=== PATIENT | male | born 1970 | race Hispanic/Latino ===

== ENCOUNTER 2017-06-22 21:20 | Observation (INO) | payer SELFPAY ==
[~2017-06-22] VITALS: Ht 172.7 cm; Wt 76.7 kg
[2017-06-22 21:52] LABS: HEMOGLOBIN 11.6 g/dl (14.0-18.0); IMMATURE GRANULOCYTES 1.3 % (0.0-1.0); MEAN CELL VOLUME 75.4 fL CALC (80.0-100.0); MEAN CORPUSCULAR HGB 23.6 pG CALC (26.0-32.0); MEAN CORPUSCULAR HGB CONC 31.4 g/L CALC (32.0-36.0); NEUT# 7.02 thou/uL (1.82-7.42); RED BLOOD COUNT 4.91 mill/uL (4.70-6.10); RED CELL DISTRI WIDTH 19.7 % (11.5-15.5)
[2017-06-22 22:11] LABS: AMYLASE 97 u/l (30-110); LIPASE 150 u/l (23-300)
[2017-06-22 22:13] LABS: ALBUMIN 4.2 g/dL (3.2-5.0); ALKALINE PHOSPHATASE 145 u/l (38-126); ANION GAP 20 (6-22 (CALC)); BILIRUBIN, TOTAL 0.7 mg/dL (0.0-1.4); BUN 9 mg/dL (9-20); BUN/CREATININE RATIO 17 (12-20 (CALC)); CALCIUM 10.1 mg/dL (8.4-10.2); CARBON DIOXIDE 20 mmol/l (22-30); CHLORIDE 106 mmol/l (95-108); CREATININE 0.5 mg/dL (0.7-1.3); GFR > 60 ML/MIN (>=60 (CALC)); GFR FOR AFR.AMER. > 60 ML/MIN (>=60 (CALC)); GLUCOSE 184 mg/dL (75-110); POTASSIUM 3.8 mmol/l (3.5-5.1); SGOT/AST 21 u/l (17-59); SGPT/ALT 28 u/l (21-72); SODIUM 142 mmol/l (137-146); TOTAL PROTEIN 8.4 g/dL (6.3-8.2)
[2017-06-22] MEDS ORDERED: DILAUDID8 MG PO (22:16)
[2017-06-22] MEDS ORDERED: KEPPRA1000 MG PO (22:17)
[2017-06-22] MEDS ORDERED: SYNTHROID50 MCG PO (22:17)
[2017-06-22] MEDS ORDERED: MORPHINE SUL30 M3 PO (22:19)
[2017-06-22 22:25] LABS: MYOGLOBIN 55 ng/mL (0 - 121)
[2017-06-22 23:56] VITALS: BP 111/77
[2017-06-23 03:00] VITALS: BP 116/80
[2017-06-23 08:37] VITALS: BP 106/69
[2017-06-23 10:33] LABS: URINE BLOOD DIPSTICK NEGATIVE (NEGATIVE); URINE CLARITY CLEAR; URINE COLOR YELLOW; URINE GLUCOSE - DIPSTICK NEGATIVE (NEGATIVE); URINE KETONE NEGATIVE (NEGATIVE); URINE LEUK ESTERASE NEGATIVE (NEGATIVE); URINE NITRITE - DIPSTICK NEGATIVE (Negative); URINE PROTEIN - DIPSTICK 100 mg/dL (NEG-TRACE); URINE SPECIFIC GRAVITY >=1.030
[2017-06-23 10:34] LABS: URINE BILIRUBIN - DIPSTICK SMALL (NEGATIVE)
[2017-06-23 10:42] LABS: BARBITURATES NEGATIVE (NEGATIVE); COCAINE NEGATIVE (NEGATIVE); METHADONE NEGATIVE (NEGATIVE); OXCYCODONE POSITIVE (NEGATIVE); TETRAHYDROCANNABIONOL NEGATIVE (NEGATIVE); TRICYLIC ANTIDEPRESSANTS POSITIVE (NEGATIVE)
[2017-06-23 10:46] LABS: URINE SQUAMOUS EPITHELIAL CELL FEW EPI/hpf (0-FEW); URINE YEAST FEW hpf
[2017-06-23 13:00] VITALS: BP 106/68
[2017-06-23] MEDS ORDERED: MORPHINE SUL30 M5 PO (14:46)
[2017-06-23] MEDS ORDERED: LEVETIRACETAM500 MG PO (14:46)
[2017-06-23] MEDS ORDERED: DILAUDID2 MG PO (14:46)
== END 2017-06-23 15:44 | disposition home or self-care (01) | DRG 313 ==
LOC: ED 21:20 → ED-I 23:00 → ED 23:29 → MS2 23:30
PROVIDERS: Emergency Medicine; ADMIT Internal Medicine; ATTEND Internal Medicine
DX: R07.89 Other chest pain (principal); C81.90 Hodgkin lymphoma, unspecified, unspecified site; G40.409 Other generalized epilepsy and epileptic syndromes, not intractable, without status epilepticus; I10 Essential (primary) hypertension; E11.9 Type 2 diabetes mellitus without complications; G93.9 Disorder of brain, unspecified; G89.29 Other chronic pain; R13.10 Dysphagia, unspecified; E03.9 Hypothyroidism, unspecified; M54.5 Low back pain; X50.3XXA Overexertion from repetitive movements, initial encounter; Z21 Asymptomatic human immunodeficiency virus [HIV] infection status; Z79.891 Long term (current) use of opiate analgesic; Z79.4 Long term (current) use of insulin; Z79.899 Other long term (current) drug therapy; Z91.14 Patient's other noncompliance with medication regimen
CPT/HCPCS: G0378

== ENCOUNTER 2017-06-27 08:29 | Emergency (ER) | payer SELFPAY ==
[~2017-06-27] VITALS: Ht 172.7 cm; Wt 81.0 kg
[~2017-06-27 08:29] MED LIST: DILAUDID2 MG PO; DILAUDID8 MG PO; KEPPRA1000 MG PO; LEVETIRACETAM500 MG PO; MORPHINE SUL30 M3 PO; MORPHINE SUL30 M5 PO; SYNTHROID50 MCG PO
[2017-06-27] MEDS ORDERED: FLEXERIL5 MG PO (09:21)
[2017-06-27] MEDS ORDERED: METFORMIN500 MG PO (09:23)
[2017-06-27] MEDS ORDERED: ZITHROMAX250 MG PO (09:23)
[2017-06-27] MEDS ORDERED: ALPRAZOLAM0.5 MG PO (09:25)
[2017-06-27] MEDS ORDERED: CELEXA20 MG PO ×2 (09:39→09:45)
[2017-06-27 09:43] LABS: HEMATOCRIT 34.9 % (39.0-50.0); HEMOGLOBIN 10.9 g/dl (14.0-18.0); IMMATURE GRANULOCYTES 0.4 % (0.0-1.0); MEAN CELL VOLUME 77.2 fL CALC (80.0-100.0); MEAN CORPUSCULAR HGB 24.1 pG CALC (26.0-32.0); MEAN CORPUSCULAR HGB CONC 31.2 g/L CALC (32.0-36.0); NEUT# 3.16 thou/uL (1.82-7.42); RED BLOOD COUNT 4.52 mill/uL (4.70-6.10); RED CELL DISTRI WIDTH 19.8 % (11.5-15.5)
[2017-06-27] MEDS ORDERED: VENLAFAXINE H37.5 MG PO (09:43)
[2017-06-27] MEDS ORDERED: PREZISTA600 MG PO (09:43)
[2017-06-27] MEDS ORDERED: TAMSULOSIN0.4 MG PO (09:44)
[2017-06-27 09:58] LABS: ALKALINE PHOSPHATASE 127 u/l (38-126); ANION GAP 16 (6-22 (CALC)); BILIRUBIN, TOTAL 0.7 mg/dL (0.0-1.4); BUN 12 mg/dL (9-20); BUN/CREATININE RATIO 21 (12-20 (CALC)); CALCIUM 10.1 mg/dL (8.4-10.2); CARBON DIOXIDE 24 mmol/l (22-30); CHLORIDE 109 mmol/l (95-108); CREATININE 0.6 mg/dL (0.7-1.3); GFR > 60 ML/MIN (>=60 (CALC)); GFR FOR AFR.AMER. > 60 ML/MIN (>=60 (CALC)); GLUCOSE 154 mg/dL (75-110); POTASSIUM 3.9 mmol/l (3.5-5.1); SGOT/AST 24 u/l (17-59); SGPT/ALT 31 u/l (21-72); SODIUM 146 mmol/l (137-146); TOTAL PROTEIN 7.7 g/dL (6.3-8.2)
[2017-06-27 11:20] LABS: URINE BLOOD DIPSTICK NEGATIVE (NEGATIVE); URINE CLARITY CLOUDY; URINE COLOR YELLOW; URINE GLUCOSE - DIPSTICK NEGATIVE (NEGATIVE); URINE KETONE NEGATIVE (NEGATIVE); URINE LEUK ESTERASE TRACE (NEGATIVE); URINE NITRITE - DIPSTICK NEGATIVE (Negative); URINE PROTEIN - DIPSTICK TRACE mg/dL (NEG-TRACE); URINE SPECIFIC GRAVITY 1.015
[2017-06-27 11:23] LABS: BARBITURATES NEGATIVE (NEGATIVE); COCAINE NEGATIVE (NEGATIVE); METHADONE NEGATIVE (NEGATIVE); TETRAHYDROCANNABIONOL NEGATIVE (NEGATIVE); TRICYLIC ANTIDEPRESSANTS NEGATIVE (NEGATIVE)
[2017-06-27 11:24] LABS: OXCYCODONE NEGATIVE (NEGATIVE)
[2017-06-27 11:31] LABS: URINE BILIRUBIN - DIPSTICK SMALL (NEGATIVE)
[2017-06-27 11:32] LABS: URINE AMORPH SEDIMENT MANY hpf (NONE-FER); URINE CALCIUM OXALATE CRYSTALS FEW lpf
[2017-06-27 11:33] LABS: URINE BACTERIA FEW hpf
[2017-06-27] MEDS ORDERED: CIPROFLOXACN500 MG PO (12:34)
[2017-06-27 12:48] VITALS: BP 115/86
[2017-06-27] MEDS ORDERED: AMOXICILLIN500 MG PO ×2 (12:54→12:55)
== END 2017-06-27 13:00 | disposition home or self-care (01) | DRG 101 ==
LOC: ED 08:29
PROVIDERS: Emergency Medicine
DX: G40.409 Other generalized epilepsy and epileptic syndromes, not intractable, without status epilepticus (principal); N39.0 Urinary tract infection, site not specified; C81.90 Hodgkin lymphoma, unspecified, unspecified site; I10 Essential (primary) hypertension; E11.9 Type 2 diabetes mellitus without complications; E03.9 Hypothyroidism, unspecified; I25.10 Atherosclerotic heart disease of native coronary artery without angina pectoris; Z21 Asymptomatic human immunodeficiency virus [HIV] infection status

== ENCOUNTER 2017-07-19 23:44 | Emergency (ER) | payer MEDICARE ==
[~2017-07-19] VITALS: Ht 172.7 cm; Wt 80.0 kg
[~2017-07-19 23:44] MED LIST changes: +ALPRAZOLAM0.5 MG PO; +AMOXICILLIN500 MG PO; +CELEXA20 MG PO; +CIPROFLOXACN500 MG PO; +FLEXERIL5 MG PO; +METFORMIN500 MG PO; +PREZISTA600 MG PO; +TAMSULOSIN0.4 MG PO; +VENLAFAXINE H37.5 MG PO; +ZITHROMAX250 MG PO
[2017-07-20 01:31] LABS: HEMATOCRIT 39.7 % (39.0-50.0); HEMOGLOBIN 12.6 g/dl (14.0-18.0); IMMATURE GRANULOCYTES 0.7 % (0.0-1.0); MEAN CELL VOLUME 78.5 fL CALC (80.0-100.0); MEAN CORPUSCULAR HGB 24.9 pG CALC (26.0-32.0); MEAN CORPUSCULAR HGB CONC 31.7 g/L CALC (32.0-36.0); NEUT# 7.14 thou/uL (1.82-7.42); RED BLOOD COUNT 5.06 mill/uL (4.70-6.10); RED CELL DISTRI WIDTH 20.1 % (11.5-15.5)
[2017-07-20 01:50] LABS: ALBUMIN 4.4 g/dL (3.2-5.0); ALKALINE PHOSPHATASE 139 u/l (38-126); ANION GAP 21 (6-22 (CALC)); BILIRUBIN, TOTAL 0.6 mg/dL (0.0-1.4); BUN 13 mg/dL (9-20); BUN/CREATININE RATIO 19 (12-20 (CALC)); CALCIUM 10.5 mg/dL (8.4-10.2); CARBON DIOXIDE 22 mmol/l (22-30); CHLORIDE 108 mmol/l (95-108); CREATININE 0.7 mg/dL (0.7-1.3); GFR > 60 ML/MIN (>=60 (CALC)); GFR FOR AFR.AMER. > 60 ML/MIN (>=60 (CALC)); GLUCOSE 176 mg/dL (75-110); POTASSIUM 4.3 mmol/l (3.5-5.1); SGOT/AST 23 u/l (17-59); SGPT/ALT 38 u/l (21-72); SODIUM 147 mmol/l (137-146); TOTAL PROTEIN 7.9 g/dL (6.3-8.2)
[2017-07-20 02:23] VITALS: BP 109/71
== END 2017-07-20 02:23 | disposition home or self-care (01) ==
LOC: ED 23:44
PROVIDERS: Emergency Medicine
DX: G89.29 Other chronic pain (principal); C81.90 Hodgkin lymphoma, unspecified, unspecified site; M25.552 Pain in left hip; M54.5 Low back pain; Z21 Asymptomatic human immunodeficiency virus [HIV] infection status; I25.2 Old myocardial infarction; I10 Essential (primary) hypertension

== ENCOUNTER 2017-09-27 04:28 | Inpatient (IN) | payer MEDICARE ==
[2017-09-27] VITALS (47 sets, daily range): BP systolic 101–217; BP diastolic 56–105
[~2017-09-27] VITALS: Ht 172.7 cm; Wt 81.0 kg
--- NOTE | 2017-09-27 04:51 | NUR ---
ASKED PT IF HE HAS ANY ALLERGIES AND HE STATED "NOT THAT I KNOW OF". INFORMED PT IODINE AND ATIVAN LISTED IN COMPUTER AND PT STATED HE HAD CT WITH CONTRAST RECENTLY AND HE WAS FINE, "I DON'T KNOW WHERE THEY GOT THAT INFORMATION.
--- NOTE | 2017-09-27 04:54 | NUR ---
BREATHING TREATMENT GIVEN. BREATHING TECH. FOR GOOD DEPOSITION TO THE LUNGS.
[2017-09-27 05:14] LABS: HEMATOCRIT 40.9 % (39.0-50.0); IMMATURE GRANULOCYTES 1.2 % (0.0-1.0); MEAN CELL VOLUME 81.5 fL CALC (80.0-100.0); MEAN CORPUSCULAR HGB 25.9 pG CALC (26.0-32.0); MEAN CORPUSCULAR HGB CONC 31.8 g/L CALC (32.0-36.0); NEUT# 5.97 thou/uL (1.82-7.42); RED BLOOD COUNT 5.02 mill/uL (4.70-6.10); RED CELL DISTRI WIDTH 18.4 % (11.5-15.5)
[2017-09-27 05:23] LABS: INFLUENZA A NONE DETECTED (NONE DETECT); INFLUENZA B NONE DETECTED (NONE DETECT)
[2017-09-27 05:24] LABS: ANION GAP 25 (6-22 (CALC)); BUN 19 mg/dL (9-20); BUN/CREATININE RATIO 31 (12-20 (CALC)); CALCIUM 11.5 mg/dL (8.4-10.2); CARBON DIOXIDE 20 mmol/l (22-30); CHLORIDE 102 mmol/l (95-108); CREATININE 0.6 mg/dL (0.7-1.3); GFR > 60 ML/MIN (>=60 (CALC)); GFR FOR AFR.AMER. > 60 ML/MIN (>=60 (CALC)); GLUCOSE 169 mg/dL (75-110); POTASSIUM 4.9 mmol/l (3.5-5.1); SODIUM 142 mmol/l (137-146)
[2017-09-27] MEDS ORDERED: NORVIR100 M1 PO (05:38)
[2017-09-27] MEDS ORDERED: COUMADIN5 MG PO (05:39)
[2017-09-27] MEDS ORDERED: LINEZOLID600 MG PO (05:41)
--- NOTE | 2017-09-27 05:45 | NUR ---
2ND EDNA IV R HAND
[2017-09-27 05:51] LABS: INTERNATIONAL NORMALIZED RATIO 1.1 RATIO (0.7-1.3); PROTHROMBIN TIME 12.1 SECONDS (9.0-12.5)
--- NOTE | 2017-09-27 06:35 | NUR ---
DR Murguia INSTERS [facility] IV.PCXR COMPLETED DR Murguia GIVES ME VERBAL PERMISSION TO USE [facility] IV FOR FLUIDS AND IV MEDS.
--- NOTE | 2017-09-27 06:50 | NUR ---
PHONE REPORT TO NURSE REYNA ON MS2
--- NOTE | 2017-09-27 08:29 | NUR ---
PT RECEIVED TO FLOOR @ 0720 VIA STRETCHER ACCOMPANIED BY JANES STEPHEN AND JANES MARES. PT TACHYPNEIC, RESPS IN 40'S. NOT RESPONDING TO QUESTIONS. PT THEN CLUCTHCED CHEST, STATES "I... CANT... BREATHE." AND BEGAN SEIZURE LIKE ACTIVITY. AUTOMOBILE MECHANIC MOTOR CALLED @0727. ER STAFF X 2 AND HEATH ARENAS RN ALREADY AT BEDSIDE. PT "AWOKE" SECONDS AFTER SEIZING STOPPED AND BEGAN SPEAKING. ANSWERING QUESTIONS. VERY POOR HISTORIAN. ANSWERS TO QUESTIONS REGARDING RECENT MEDICAL TREATMENT DIFFERING FROM MINUTE TO MINUTE. O2 @ 2L VIA NC, SATURATION 96%. BLOOD SUGAR 208. CENTRAL LINE TO RI INFUSING VANCOMYCIN AND 2L NS BOLUS FROM ED ORDER. DR. PELLETIER AND LILLIAN GHOSH AT BEDSIDE @ 0805. SIERRA CATHETER 16FR INSERTED BY STERILE TECHNIQUE PER DR. PELLETIER ORDER. 600 ML CLEAR YELLOW URINE OURPUT UPON INSERTION.ORDER TO TRANSFER TO ICU FOR POSSIBLE INTUBATION. PT STILL TACHYPNEIC. STILL REPORTS CHEST PAIN. PT TRANSFERED @ 0829 BY BED TO ICU BED 5. REPORT GIVEN TO JANES BARAJAS.
--- NOTE | 2017-09-27 08:32 | NUR ---
0832 - PT TRANSFERRED FROM FROM MED SURG VIA BED, PT TACHYPNIC WITH LUNGS CLEAR/DIMINSHED, SHORTNES OF BREATH NOTED AND O2 ON AT 2L WITH SATS AT 98%, SOME FINE TREMORS NOTED TO ABD AND TORSO, SKIN INTACT WITH DRY SCALINESS NOTED TO BILATERAL FEET, PPPB STRONG AND BOUNDING, NO EDEMA NOTED ABD ROUNDED AND SOFT NON TENDER TO PALPATION (NO FLINCHING OR GRIMACING NOTED) WITH ACTIVE BOWEL SOUNDS HEARD, UNABLE TO DETERMINE LAST BM RELATED TO PT CONDITION, PT WITH EYES CLOSED DOES NOT TALK AT THIS TIME, PER REPORT GAVE CONFLICTING HISTORY REGARDING RECENT ILLNESSES ETC...MONITORING EQUIPMENT APPLIED TELE READING ST RATE IN THE 100'S, BP ELEVATED SEE INTERVENTION FOR DETAILS, PER WHO IS NOW AT BEDSIDE (PLAN TO INTUBATE AWAITING ANESTHESIA) SCARS NOTED TO BILATERAL ANTECUBITAL AREAS. PT HAS 20G IN R AC, 22G IN LEFT HAND AND R IJ TLC NOTED. 16F SIERRA WITH SECUREITY DEVICE NOTED TO RIGHT THIGH, DRAINING CLEAR SAMMY URINE WITH SEDIMENT NOTED 0846 - BOLUS OF PROPOFOL DONE BY MARILYN MERRILL 0846 - PROPOFOL DRIP STARTED AT 20 MCG 0847 - MEDICATED WITH SUCCINYLCHOLINE BY MARILYN MERRILL 0849 - INTUBATED WITH 8F TAPED AT 24 CM AT LIP LINE 0850 - MEDICATED WITH CISATRACURIUM BY GARFIELD SANDERS 0851 - PROPOFOL GTT INCREASED AT 30MCG, BP REMAINS ELEVATED, PT DIAPHORETIC 0855 - ORAL CARE PROVIDED INCLUDING ORAL SUCTIONING 0859 - REPOSITIONED FOR COMFORT, BILATERAL SOFT WRIST RESTRAINTS APPLIED TO PREVENT SELF EXTUBATION.
--- NOTE | 2017-09-27 09:15 | NUR ---
16F NG PLACED IN R NARE, WITHOUT INCIDENT, PLACEMENT VERIFIED BY 2 RN'S, PT TOLERATED W/O INCIDENT.
[2017-09-27 09:27] LABS: MAGNESIUM 1.8 mg/dL (1.6-2.3)
--- NOTE | 2017-09-27 09:30 | NUR ---
Spoke with Francis at [facility], pt information given. States will give pass information to [facility] and have hospitalist call Dr Ballard with any questions. Facesheet, H & P, ER documentation, and Transfer Order faxed.
--- NOTE | 2017-09-27 10:00 | NUR ---
PT REMAINS PROFUSELY DIAPHORETIC, MILDLY RESPONSIVE AT THIS TIME PROPOFOL GTT TITRATED ACCORDINGLY, REPEATED ORAL SUCTIONING PROVIDED FOR COPIUS ORAL SECRETIONS, BP REMAIN ELEVATED AWARE NEW ORDERS REC'D. AT BEDSIDE AND HISTORY OBTAINED FORM HER, PT HAS BEEN ON SENIOR LIVING (ATLEAST 13 YRS) PAIN MGMT TAKING 8MG OF DILAUDID PO Q4H AND MS CONTIN PO Q12H AT HOME, RECENT HISTORY OF HOMELESS RESULTING IN SHORT HOSPITAL STAY THEN 2 MONTHS IN REHAB, THEN INTO [facility] ON 09/02/17 RELEASED 09/25/17 PER . PT ALSO HAS HISTORY OF HIV, NON H[place] LYMPHOMA
[2017-09-27 10:24] LABS: HEMOGLOBIN 10.8 g/dl (14.0-18.0); MEAN CELL VOLUME 82.1 fL CALC (80.0-100.0); MEAN CORPUSCULAR HGB 26.1 pG CALC (26.0-32.0); MEAN CORPUSCULAR HGB CONC 31.8 g/L CALC (32.0-36.0); RED BLOOD COUNT 4.14 mill/uL (4.70-6.10); RED CELL DISTRI WIDTH 17.9 % (11.5-15.5)
--- NOTE | 2017-09-27 10:34 | NUR ---
MEDICATED WITH DILAUDID FOR S/S OF PAIN CONTINUE WITH FREQUENT ORAL SUCITONING AND SKIN DRYING RELATED TO DIAPHORESIS. SOME TREMORS NOTED OCCASIONALLY PT REMAINS MILDLY RESPONSIVE, CONTINUE TO TITRATE PROPOFOL
[2017-09-27 10:39] LABS: ALBUMIN 3.6 g/dL (3.2-5.0); ALKALINE PHOSPHATASE 145 u/l (38-126); ANION GAP 18 (6-22 (CALC)); BILIRUBIN, TOTAL 0.8 mg/dL (0.0-1.4); BUN 16 mg/dL (9-20); BUN/CREATININE RATIO 35 (12-20 (CALC)); CARBON DIOXIDE 17 mmol/l (22-30); CHLORIDE 109 mmol/l (95-108); CREATININE 0.5 mg/dL (0.7-1.3); GFR > 60 ML/MIN (>=60 (CALC)); GFR FOR AFR.AMER. > 60 ML/MIN (>=60 (CALC)); GLUCOSE 324 mg/dL (75-110); POTASSIUM 4.2 mmol/l (3.5-5.1); SGOT/AST 23 u/l (17-59); SGPT/ALT 35 u/l (21-72); SODIUM 141 mmol/l (137-146); TOTAL PROTEIN 6.4 g/dL (6.3-8.2)
[2017-09-27 10:50] LABS: CALCIUM 8.5 mg/dL (8.4-10.2)
--- NOTE | 2017-09-27 11:30 | NUR ---
PT RESTING APPEARS MORE COMFORTABLE SHORTLY AFTER PAIN MEDICATION ADMINISTERED DIAPHORESIS AND BP IMPROVED GREATLY, OCCASIONAL TREMORS NOTED, PT CURRENTLY ON MAX TITRATION PER PROTOCOL WITH DIPROVAN AND REMAINS MILDLY RESPONSIVE, AWARE
--- NOTE | 2017-09-27 12:39 | NUR ---
BACK AT BEDSIDE, PT APPEARS MORE COMFORTABLE BP REMAINS STABLE LESS TREMORS NOTED, PT EDUCATED REGARDING PLAN OF CARE INCLUDING TRANSFER BACK TO [facility] WHEN BED AVAILABLE, VERBALIZES UNDERSTANDING.
--- NOTE | 2017-09-27 14:04 | NUR ---
COMPLETE BED BATH COMPLETED WITH FULL LINEN CHANGE, PT TOLERATED, REMAINS MILDLY REPSONSIVE TO STIMULATION. COMFORT MEASURES PROVIDED ANMD MEDICATED FOR PAIN PRIOR TO BATH, PLANNED CT THIS AFTERNOON.
--- NOTE | 2017-09-27 14:50 | NUR ---
1420 - PT ONTO STRECTHER WITH 4 MAX ASSIST, TO CT VIA STRECTHER WITH R.T. CT COMPLETED AND BACK TO ROOM PT TOLERATED WELL. 1450 - BACK IN ICU, BACK TO BED WITH SAME ASSIST, ALL MONITORING EQUIPMENT REAPPLIED, PT REMAINS MILDLY AROUSEABLE BUT RESTING COMFORTABLY. EASILY VISIBLE FROM NURSES STATION FOR SAFETY
--- NOTE | 2017-09-27 15:09 | NUR ---
PT RESTING NO CHANGES NOTED.APPEARS COMFORTBALE NG REMAINS AT LIS WITH SMALL AMOUNT GREENICH YELLOWISH DRAINAGE, SIERRA WITH ADEQUATE OUPUT, DRESSING TO RIJ TLC CHANGED USING STERILE TECHNIQUE, PT TOLERATED WELL.
--- NOTE | 2017-09-27 16:08 | NUR ---
PT RESTING IN BED, SADAF CONTINUES WQITH IVF INFUSING AT PRESCRIBED RATE, PT APPEARS COMFORTABLE, NO S/S OF PAIN OR DISTRESS AT THIS TIME, WILL CONTINUE TO MONITOR.
--- NOTE | 2017-09-27 17:35 | NUR ---
set up assist provided for pm meal, few visitors remain at bedside
--- NOTE | 2017-09-27 18:02 | NUR ---
PT RESTING NO S/S OF DISTRESS OR DISCOMFORT, IVF CONTINUE DIPROVAN PER PROTOCOL SIERRA INTACT DRAINING CLEAR YELLOW URINE
--- NOTE | 2017-09-27 18:29 | NUR ---
PATIENT RECEIVED AT 1800 WITH HEAD OF BED AT ABOUT 30 DEGRE ANGLE. INTUBATED WITH SIZE # 8 ET TUBE AT 23 CM OF THE LIPS. RESTING COMFORTABLY. SPO2 97% ON 30% AC WITH 5 OF PEEP. WILL CONTINUE TO MONITOR THROUGTOUT THE SHIFT.
--- NOTE | 2017-09-27 18:50 | NUR ---
REPORT FROM JANES BARAJAS. ASSUMED PT. CARE.
--- NOTE | 2017-09-27 19:19 | NUR ---
CALL PLACED TO [facility] TRANSFER CENTER TO IN REGARDS TO TRANFER TO [facility] AND THEY STILL HAVE NO ICU BED AT THIS TIME.
--- NOTE | 2017-09-27 19:35 | NUR ---
PT. FOUND RESTING IN BED WITH EYES CLOSED ON THE VENT. PT. AROUSABLE TO LIGHT VERBAL STIMULI. PROPOFOL DRIP INFUSING AT 75 MCG AT THIS TIME-MAX DOSE. WHEN ASKED IF PATIENT HAS PAIN HE IS ABLE TO SHAKE HIS HEAD YES. REPOSITIONED FOR COMFORT. HR AND BP STABLE. LUNGS CLEAR TO UPPER AND SCANT RHONCHI TO LOWER LUNG ROY. PT. REMAINS IN SOFT WRIST RESTRAINTS HE DOES ATTEMPT TO OCCASIONALLY REACH UP FOR THE ET TUBE. NG TUBE NOTED TO RT. NARES WITH COMMERICAL TUBE HOLDING DEVICE NOTED, SECURED. GREEN FLUID DRAINING FROM NG TUBE TO LIT. ORAL CARE AND DEEP SUCTIONING ALONG WITH ORAL SUCTIONING PERFORMED AT THIS TIME. PT. TOLERATED WELL AFTER BEING MEDICATED FOR PAIN. IV FLUIDS AND PROPOFOL DRIP INFUSE TO RT. IJ CENTRAL LINE. CALL LIGHT REMAINS WITHIN REACH AT THIS TIME. WILL CONTINUE TO ASSESS.
--- NOTE | 2017-09-27 20:54 | NUR ---
PT. CONTINUES TO REST COMFORTABLY WITH EYES CLOSED. VS REMAIN STABLE. PT. REMAINS STABLE ON THE VENT AND PROPOFOL DRIP. HR AND BP STABLE. REMAINS ROUSABLE TO LIGHT VERBAL STIMULI. WILL CONTINUE TO MONITOR FOR PAIN AND MEDICATE NEEDED. CALL LIGHT REMAINS WITHIN REACH AND SOFT WRIST RESTRAINTS INTACT AT THIS TIME. WILL CONTINUE TO ASSESS.
--- NOTE | 2017-09-27 21:27 | NUR ---
PT. CONTINUES TO REACH UP AT LINES AND TUBES. SOFT BILAT WRIST RESTRAINTS CONTINUE. WILL CONTINUE TO ASSESS FOR NEED. CALL LIGHT REMAINS WITHIN REACH.
--- NOTE | 2017-09-27 21:45 | NUR ---
PROPOFOL TUBING CHANGED AT THIS TIME.
--- NOTE | 2017-09-27 22:49 | NUR ---
CONTINUES TO REST WITH EYES CLOSED. REMAINS WITH SOFT WRIST RESTRAINTS IN PLACE. SEE DOCUMENTATION. REMAINS STABLE ON THE VENT. VSS. PROPOFOL DRIP CONTINUES TO INFUSE. WILL MEDICATE ORDERED.
[2017-09-28] VITALS (24 sets, daily range): BP systolic 97–162; BP diastolic 57–84
--- NOTE | 2017-09-28 00:23 | NUR ---
ZOSYN INFUSED AT THIS TIME. NO REACTIONS NOTED. RT. IJ REMAINS PATENT WITH FLUIDS AND DIPROVAN DRIP INFUSING. CALL LIGHT REMAINS WITHIN REACH. PT. APPEARS COMFORTABLE AT THIS TIME. REPOSITIONED FOR COMFORT. WILL CONTINUE TO PROVIDE ORAL CARE Q2 AND NEEDED.
--- NOTE | 2017-09-28 02:23 | NUR ---
PROPOFOL DRIP CHANGED AT THIS TIME. PT. CONTINUES TO BE AROUSABLE TO LIGHT VERBAL STIMULI. ANSWERS QUESTIONS WITH SHAKING HEAD YES AND NO. IV FLUIDS CONTINUE TO INFUSE WIHT PROPOFOL TO RT. IJ CENTRAL LINE. SKIN REMAINS WARM AND DRY. AFEBRILE. PT. REMAINS WITH HEAD AT 30 DEGREES.
--- NOTE | 2017-09-28 04:15 | NUR ---
PT. REPOSITIONED FOR COMFORT. ORAL CARE AND SUCTIONING PROVIDED. DEEP SUCTIONING PERFORMED. PT. MEDICATED FOR PAIN CONTROL. PROPOFOL DRIP CONTINUES TO INFUSE AT 75 MCG. VS REMAIN STABLE. PT. REMAINS AROUSABLE TO LIGHT VERBAL STIMULI.
[2017-09-28 05:17] LABS: HEMATOCRIT 26.5 % (39.0-50.0); HEMOGLOBIN 8.5 g/dl (14.0-18.0); IMMATURE GRANULOCYTES 2.3 % (0.0-1.0); MEAN CELL VOLUME 81.3 fL CALC (80.0-100.0); MEAN CORPUSCULAR HGB 26.1 pG CALC (26.0-32.0); MEAN CORPUSCULAR HGB CONC 32.1 g/L CALC (32.0-36.0); NEUT# 4.65 thou/uL (1.82-7.42); RED BLOOD COUNT 3.26 mill/uL (4.70-6.10); RED CELL DISTRI WIDTH 17.6 % (11.5-15.5)
[2017-09-28 05:27] LABS: ANION GAP 14 (6-22 (CALC)); BUN 14 mg/dL (9-20); BUN/CREATININE RATIO 27 (12-20 (CALC)); CALCIUM 9.1 mg/dL (8.4-10.2); CARBON DIOXIDE 21 mmol/l (22-30); CHLORIDE 109 mmol/l (95-108); CREATININE 0.5 mg/dL (0.7-1.3); GFR > 60 ML/MIN (>=60 (CALC)); GFR FOR AFR.AMER. > 60 ML/MIN (>=60 (CALC)); GLUCOSE 228 mg/dL (75-110); MAGNESIUM 1.6 mg/dL (1.6-2.3); POTASSIUM 4.1 mmol/l (3.5-5.1); SODIUM 139 mmol/l (137-146)
--- NOTE | 2017-09-28 06:09 | NUR ---
ORAL CARE PROVIDED. ZOSYN INFUSED AT THIS TIME. NO REACTIONS NOTED. PT. WINCES WITH ORAL CARE AND HR ELEVATES. APPEARS TO BE IN MODERATE DISCOMFORT. VSS. ROM AND RELEASE PROVIDED AND SOFT WRIST RESTRAINTS REPLACED. CALL LIGHT REMAINS WITHIN REACH. WILL CONTINUE TO CLOSELY MONITOR.
[2017-09-28 06:35] LABS: HEMATOCRIT 26.5 % (39.0-50.0); HEMOGLOBIN 8.5 g/dl (14.0-18.0)
--- NOTE | 2017-09-28 07:20 | NUR ---
PT RESTING IN BED INTUBATED WITH 8F TAPED AT 23CM AT LIP LINE, SEE FLOW SHEEET FOR VENT SETTINGS, IVF INFUSING ALONG WITH DIPROVAN PER PROTOCOL INTO R IJ TLC, PT REMAINS DROWSY BUT AROUSES AND NODS YES AND NO APPROPRIATELY TO QUESTIONS ASKED, WRIST RESTRAINTS IN PLACE TO PREVENT SELF EXTUBATION, NG INTACT IN R NARE DRAINING RUST DRAINAGE, SKIN WARM DRY AND INTACT, MEDICATED FOR PAIN ORDERED, COMFORT MEASURES PROVIDED, ACCU CHECK COMPLETED AND COVERAGE PROVIDED ORDERED, CALL HILL WITHIN REACH, EASILY VISIBLE FROM NURSES STATION FOR SAFETY, WILL MONITOR CLOSELY
--- NOTE | 2017-09-28 08:12 | NUR ---
PT RESTING, APPEARS COMFORTABLE, CALL HILL WITHIN REACH, IVF CONTINUE, WILL CONTINUE TO MONITOR.
--- NOTE | 2017-09-28 08:25 | NUR ---
IN TO SEE PATIENT, PLAN OF CARE DISCUSSED INCLUDING ATTMEPTS TO WEAN VENT TODAY.
--- NOTE | 2017-09-28 09:08 | NUR ---
SADAF ZAVALA FOR PLANNED ATTEMPTED EXTUBATION, PT AWAKE WRITTEN REQUEST TO CALL , JAYDON CALLED AND WILL BE IN SHORTLY, PT AWARE, TEARY EYED, EMOTIONAL SUPPORT GIVEN, WILL CONTINUE TO MONITOR.
--- NOTE | 2017-09-28 09:15 | NUR ---
AT BEDSIDE, EDUCATION PROVIDED TO PT AND APOUSE REGARDING PLAN OF CARE, CALL HILL WITHIN REACH.
--- NOTE | 2017-09-28 09:21 | NUR ---
RT AT BEDSIDE, VENT SETTING CHANGES COMPLETED, WILLMONITOR TOLERANCE SEE FLOW SHEET FOR CHANGES
--- NOTE | 2017-09-28 09:37 | NUR ---
PT RESTING EMOTIONAL REGARDING PLAN OF CARE AND CURRENT/RECENT ILLNESSES, EMOTIONAL SUPPORT PROVIDED.
--- NOTE | 2017-09-28 09:45 | NUR ---
ORAL SUCTIONING PROVIDED, PT TOLERATING VENT CHANGES WELL, MAINTAINED SATS 97-100%
--- NOTE | 2017-09-28 10:00 | NUR ---
PT EXTUABTED BY RT, NG REMOVED AT SAME TIME, PT TOLERATED W/O INCIDENT, O2 PLACED AT 3L VIA NC, TOLERATING WELL, COMPLAINS OF HEADACHE AND SORE THROAT WILLMEDICATE ORDERED, ALSO VERBALIZES SOME NAUSEA, WILL NOTIFY
--- NOTE | 2017-09-28 10:31 | NUR ---
CONTINUES TO TOLERATE NC, MEDICATED FOR COMPLAINTS IF NAUSEA AND PAIN, TOLERATES WELL, MAINTAINING O2 SATS AT 100% ON NC, AT BEDSIDE, WILL CONTINUE TO MONITOR
--- NOTE | 2017-09-28 11:20 | NUR ---
PT TOOK PO MORPHINE (HIS USUAL HOME DOSE) W/O INCIDENT, CONTINUES TO TOLERATE BEING EXTUBATED, SATS MAINTAINED AT 95-100% ON 3L NC, WILL CONTINUE TO MONITOR
--- NOTE | 2017-09-28 12:26 | NUR ---
PT RESTING, OFFERS NO NEW COMPLAINTS, CONTINUES TO TOLERATE THE NC WELL, TAKIN PO FLUIDS WITHOUT INCIDENT, WILL START FULL LQUID DIET AND MONITOR TOLERANCE, CALL HILL WITHIN REACH
--- NOTE | 2017-09-28 13:08 | NUR ---
PT STARTED ON FULL LIQUID DIET, WILL MONITOR TOLERANCE.
--- NOTE | 2017-09-28 13:13 | NUR ---
SOME COUGH NOTED, HISTORY DEPARTMENT CHAIR AT THIS TIME, COMFORT MEASURES PROVIDED, WILL CONTINUE TO MONITOR.
--- NOTE | 2017-09-28 14:18 | NUR ---
PT RESTING, DOZING INTERMITTNELY, OCCASIONAL TIGHT HARSH COUGH NOTED MD AWARE WITH NEW ORDERS REC'D
--- NOTE | 2017-09-28 16:21 | NUR ---
Pt resting no s/s of ditress some intermittent anxiety noted wioth emotional support provided, call valdez within reach.
--- NOTE | 2017-09-28 17:36 | NUR ---
MEDICATED FOR COMPLAINTS OF PAIN, REMAINS AT BEDSIDE, ACCU CHECK COMPLETED AND COVERAGE PROVIDED ORDERED, CALL HILL WITHIN REACH
--- NOTE | 2017-09-28 19:00 | NUR ---
PT SITTING UP IN BED WATCHING TV. SPOUSE IN ROOM WITH PT. PT IS ALERT AND ORIENTED X3. PERRLA. RESP ARE EVEN AND LABORED. PT TACHYPNEIC. INSTRUCTED PT TO TAKE SLOW DEEP BREATHS. RHONCI NOTED IN BILAT BASES OF LUNGS. PT ON O2 2L NC. HR REGULAR. PULSES PALPABLE THROUGHOUT. NO EDEMA NOTED. BS ACTIVE. SIERRA DRAINING CLEAR YELLOW URINE. TLC TO RIGHT SUBCLAVIAN. IVF KVO. DRESSING C/D/I. WILL CONTINUE TO MONITOR
--- NOTE | 2017-09-28 19:45 | NUR ---
MEDICATED PT WITH XANAX 0.5MG PO. FOR ANXIETY. PT DIAPHORETIC AND TACHYPNEIC. WILL CONTINUE TO MONITOR
--- NOTE | 2017-09-28 21:00 | NUR ---
PT ABLE TO EAT SOME APPLE SAUCE AT THIS TIME
--- NOTE | 2017-09-28 21:54 | NUR ---
PT RESTING IN BED WITH EYES CLOSED. SPOUSE AT BEDSIDE. PT AROUSES TO VERBAL STIMULI. DIAPHORESIS HAS SUBSIDED. PT VOICES NO COMPLAINTS AT THIS TIME. RESP ARE NO EVEN AND UNLABORED. WILL CONTINUE TO MONITOR
[2017-09-29] VITALS (18 sets, daily range): BP systolic 115–163; BP diastolic 52–89
--- NOTE | 2017-09-29 00:12 | NUR ---
PT RESTING IN BED WATCHING TV. RESP ARE EVEN AND UNLABORED. MEDICATED WITH DILAUDID 8MG. NO DISTRESS NOTED. PT VOICES NO COMPLAINTS AT THIS TIME. WILL CONTINUE TO MONITOR
--- NOTE | 2017-09-29 02:11 | NUR ---
PT RESTING IN BED WITH EYES OPEN. PT STATES THAT HE IS HAVING A DIFFICULT TIME FALLING ASLEEP. PT REQUESTS THAT MEDICINE IS GIVEN AT THE SAME TIME SO THAT HE CAN SLEEP. INFORMED PT THAT HIS NEXT DILAUDID CAN BE GIVEN AT 0400 AND NEXT MORPHINE AT 0900. PT REQUESTS TO TAKE XANAX AT 0400. WILL CONTINUE TO MONITOR
--- NOTE | 2017-09-29 04:09 | NUR ---
PT SITTING UP IN BED WITH EYES OPEN. PT STATES THAT HE IS STILL UNABLE TO SLEEP. PT COMPLAINS THAT HE IS HAVING TROUBLE BRETHING. HEAD OF BED RAISED. PT INSTRUCTRED TO TAKE SLOW DEEP BREATHS THROUGHT THE NOSE AND OUT THROUGHT THE MOUTH. PT REPORTED THAT HE WAS FEELING BETTER AFTER THAT. NOTIFIED RT FOR A NEB TREATMENT. NEB TRATMENT ADMINISTERED. RESP ARE EVEN AND LABORED. PT MEDICATED WITH DILAUDID 8MG PO AND XANAX 0.5MG PO. WILL CONTINUE TO MONITOR
--- NOTE | 2017-09-29 05:00 | NUR ---
LAB DRAWN FROM TLC AND GIVEN TO BULLDOZER MECHANIC.
--- NOTE | 2017-09-29 05:19 | NUR ---
TURKEY SANDWICH PROVIDED AT PATIENT REQUEST.
[2017-09-29 05:54] LABS: HEMATOCRIT 29.9 % (39.0-50.0); HEMOGLOBIN 9.6 g/dl (14.0-18.0); MEAN CELL VOLUME 80.6 fL CALC (80.0-100.0); MEAN CORPUSCULAR HGB 25.9 pG CALC (26.0-32.0); MEAN CORPUSCULAR HGB CONC 32.1 g/L CALC (32.0-36.0); RED BLOOD COUNT 3.71 mill/uL (4.70-6.10)
[2017-09-29 05:57] LABS: ANION GAP 19 (6-22 (CALC)); BUN 18 mg/dL (9-20); BUN/CREATININE RATIO 30 (12-20 (CALC)); CALCIUM 9.9 mg/dL (8.4-10.2); CARBON DIOXIDE 21 mmol/l (22-30); CHLORIDE 104 mmol/l (95-108); CREATININE 0.6 mg/dL (0.7-1.3); GFR > 60 ML/MIN (>=60 (CALC)); GFR FOR AFR.AMER. > 60 ML/MIN (>=60 (CALC)); GLUCOSE 364 mg/dL (75-110); POTASSIUM 4.1 mmol/l (3.5-5.1); SODIUM 139 mmol/l (137-146)
--- NOTE | 2017-09-29 06:00 | NUR ---
PT RESTING IN BED WITH EYES CLOSED. RESP ARE EVEN AND UNLABORED. NO DISTRESS NOTED. WILL CONTINUE TO MONITOR
[2017-09-29 06:02] LABS: INTERNATIONAL NORMALIZED RATIO 1.1 RATIO (0.7-1.3); PROTHROMBIN TIME 12.5 SECONDS (9.0-12.5)
--- NOTE | 2017-09-29 07:20 | NUR ---
PT RESTING IN BED, REQUIRES REINFORCEMENT REGARDING CONDITION, ASKS MUTIPLE TIMES "I'M DOING BETTER RIGHT" EDUCATED REGARDING DISEASES PROCESS AND PLAN OF CARE INCLUDING, IVF ABT, BREATHING TREATMENTS, PAIN CONTROL ETC... PT VERBALIZES UNDERSTANDING, AM ASSESSMENT COMPLETED SEE INTERVENTION, SKIN WARM AND DRY RIJ TLC INTACT WITH DRESSING CD&I, VS STABLE; PT AFEBRILE, WITH WHEEZES HEARD IN ALL ROY, O2 REMAINS ON AT 3L VIA NC WITH EXERTIONAL SOB NOTED, PT HAS ADMITTED ANXIETY ISSUES, EMOTIONAL SUPPORT PROVIDED, COMFORT MEASURES PROVIDED, SAFETY MEASURES REINFORCED. TELE CONTINUES READING SR RATE IN THE 80-90'S, PT ON STALLION MANAGER PAIN MGMT REGIMEN WHICH IS BEING CONTINUED THIS HOSPITAL STAY, CALL HILL WITHIN REACH, WILL CONTINUE TO MONITOR
--- NOTE | 2017-09-29 08:00 | NUR ---
SET UP ASSIST PROVIDED FOR AM MEAL, CALL HILL WITHIN REACH
--- NOTE | 2017-09-29 08:20 | NUR ---
PT TOOK AM MEDICATIONS W/O INCIDENT, COMFORT MEASURES PROVIDED, CALL HILL WITHIN REACH
--- NOTE | 2017-09-29 10:00 | NUR ---
PT RESTING IN BED, SIERRA CATHETER CONTINUES DRAINING ADEQUATE AMOUNTS CLEAR YELLOW URINE, O2 REMAINS IN USE VIA NC AT 3L, CALL HILL WITHIN REACH
--- NOTE | 2017-09-29 11:05 | NUR ---
PT OOB TO RECLINRE, WITH MIN ASSIST, TOLERATED ACTIVITY WELL, UP TO RECLINER AT BEDSIDE, CONTINUES TO TOLERATE NC AT 3L, OCCASIONAL EXERTIONAL SOB, WILL CONTINUE TO MONITOR.
--- NOTE | 2017-09-29 12:30 | NUR ---
PT REMAINS SITTING UP IN RECLINER AT BEDSIDE, VS REMAIN STABLE, CONTINUES TO TOLERATE NC, CALL HILL WITHIN REACH, MEDICATED FOR PAIN ORDERED, WILL CONTINUE TO MONITOR
--- NOTE | 2017-09-29 13:56 | NUR ---
PT REMAINS SITTING UP IN RECLINER, COMFORT MEASURES PROVIDED, VS REMAIN STABLE, WILL CONTINUE TO MONITOR,
--- NOTE | 2017-09-29 14:11 | NUR ---
VISITORS AT BEDSIDE, OFFERS NO NEW COMPLAINTS, CALL HILL WITHIN REACH.
--- NOTE | 2017-09-29 15:19 | NUR ---
PT RESTING IN RECLINER AT BEDSIDE, CALL HILL WITHIN REACH, NO S/S OF DISTRESS NOTED, CALL HILL WITHIN REACH
--- NOTE | 2017-09-29 16:12 | NUR ---
BACK TO BED WITH MIN ASSIST, TOLERATED ACTIVITY WELL, MEDICATED FOR COMPLAINTS OF PAIN, CALL HILL WITHIN REACH
--- NOTE | 2017-09-29 17:13 | NUR ---
ACCU CHECK COMPLETED WILL PROVIDE COVERAGE ORDERED, CALL HILL WITHIN REACH
--- NOTE | 2017-09-29 17:40 | NUR ---
PT RESTING IN BED, SET UP ASSIST FOR DINNER PROVIDED, CALL LIZ WALKER
--- NOTE | 2017-09-29 19:00 | NUR ---
PT SITTING UP IN BED. PT STATES THAT HE IS FEELING MUCH BETTER. PT IS ALERT AND ORIENTED X3. PERRLA. RHONICI NOTED IN BASE OF BILAT LUNGS. WHEEZING NOTED IN UPPER LOBES OF LUNGS. RESP ARE EVEN AND UNLABORED. NO DISTRESS NOTED. HR REGULAR. PULSES PALPABLE THROUGHOUT. NO EDEMA NOTED. BS ACTIVE. SIERRA DRAINING CLEAR YELLOW URINE. TLC TO RIGHT SUBCLAVIAN. IVF AT KVO. NO REDNESS OR EDEMA NOTED. PT CONTINUES TO HAVE SOME ANXIETY AFTER FAMILY LEAVES. WILL MONITOR AND PROVIDE REASSURANCE NEEDED. WILL MEDICATE NEEDED. WILL CONTINUE TO MONITOR
--- NOTE | 2017-09-29 20:16 | NUR ---
MEDICATED PT WITH DILAUDID 8MG PO AND XANAX 0.5MG PO.
--- NOTE | 2017-09-29 21:10 | NUR ---
MARIELA LEE. PT TOLERATED WELL. URINAL AT [facility].
--- NOTE | 2017-09-29 22:00 | NUR ---
PT RESTING IN BED WITH EYES CLOSED. PT AROUSES TO VERBAL STIMULI. RESP ARE EVEN AND UNLABORED. NO DISTRESS NOTED. WILL CONTINUE TO MONITOR
[2017-09-30] VITALS (9 sets, daily range): BP systolic 111–171; BP diastolic 79–91
--- NOTE | 2017-09-30 | NUR ---
PT MEDICATED WITH DILAUDID 8MG PO. PT RESTING IN BED. PT VOIDED. 500CC OF CLEAR YELLOW URINE. PT VOICES NO COMPLAINTS AT THIS TIME. WILL CONTINUE TO MONITOR
--- NOTE | 2017-09-30 02:14 | NUR ---
PT RESTING IN BED WITH EYES CLOSED. RESP ARE EVEN AND UNLABORED. NO DISTRESS NOTED. PT VOICES NO COMPLAINTS AT THIS TIME. WILL CONTINUE TO MONITOR
--- NOTE | 2017-09-30 04:00 | NUR ---
PT AWAKE IN BED. MEDICATED WITH DILAUDID 8MG PO. PT HAVING EVEN AND LABORED RESPIRATIONS. INSTRUCTED PT TO BREATH NICE SLOW DEEP BREATHS AND TO SLOW BREATHING DOWN. WILL CONTINUE TO MONITOR
--- NOTE | 2017-09-30 04:00 | NUR ---
AM LABS DRAWN FROM TLC
--- NOTE | 2017-09-30 04:25 | NUR ---
RESPIRATORY THERAPY INTO GIVEN NEB TREATMENT. PT WAS COUGHING AND STATES HE WAS HAVING SOME SHORTNESS OF BREATH
[2017-09-30 04:48] LABS: HEMATOCRIT 30.3 % (39.0-50.0); HEMOGLOBIN 9.8 g/dl (14.0-18.0); MEAN CELL VOLUME 79.7 fL CALC (80.0-100.0); MEAN CORPUSCULAR HGB 25.8 pG CALC (26.0-32.0); MEAN CORPUSCULAR HGB CONC 32.3 g/L CALC (32.0-36.0); RED BLOOD COUNT 3.8 mill/uL (4.70-6.10); RED CELL DISTRI WIDTH 18.2 % (11.5-15.5)
[2017-09-30 05:00] LABS: ANION GAP 17 (6-22 (CALC)); BUN 21 mg/dL (9-20); BUN/CREATININE RATIO 40 (12-20 (CALC)); CALCIUM 9.9 mg/dL (8.4-10.2); CARBON DIOXIDE 24 mmol/l (22-30); CHLORIDE 102 mmol/l (95-108); CREATININE 0.5 mg/dL (0.7-1.3); GFR > 60 ML/MIN (>=60 (CALC)); GFR FOR AFR.AMER. > 60 ML/MIN (>=60 (CALC)); GLUCOSE 244 mg/dL (75-110); POTASSIUM 4.3 mmol/l (3.5-5.1); SODIUM 138 mmol/l (137-146)
--- NOTE | 2017-09-30 05:15 | NUR ---
BP 139/83 O2 SAT 99%
[2017-09-30 05:22] LABS: INTERNATIONAL NORMALIZED RATIO 1.7 RATIO (0.7-1.3); PROTHROMBIN TIME 19.6 SECONDS (9.0-12.5)
--- NOTE | 2017-09-30 05:28 | NUR ---
PT STATES THAT HE IS HAVING CHEST PAIN AND ARM NUMBNESS. PT DIAPHORETIC. ACCUCHECK 310. TEMP 97.5. CALLED RESPIRATORY FOR EKG. WILL NOTIFY
--- NOTE | 2017-09-30 05:33 | NUR ---
XANAX 0.5MG PO GIVEN. PT IS TACHYPNEIC. WILL CONTINUE TO MONITOR
--- NOTE | 2017-09-30 06:00 | NUR ---
TROPONIN DRAWN FROM TLC.
--- NOTE | 2017-09-30 06:19 | NUR ---
PT RESTING IN BED RESP ARE EVEN AND UNLABORED. NO DISTRESS NOTED AT THIS TIME.
--- NOTE | 2017-09-30 06:30 | NUR ---
PT WITH COMPLAINTS OF NAUSEA. ZOFRAN GIVEN.
--- NOTE | 2017-09-30 07:25 | NUR ---
PT RESTING IN BED, CONTINUES TO REQUIRE REINFORCEMENT REGARDING CONDITION, ASKS "I'M STILL DOING BETTER RIGHT" EDUCATED REGARDING DISEASES PROCESS AND PLAN OF CARE INCLUDING, IVF ABT, BREATHING TREATMENTS, PAIN CONTROL POSSIBLE TRANSFER TO MED SURG TO ALLOW INCREASED ACTIVITY ETC... PT VERBALIZES UNDERSTANDING, AM ASSESSMENT COMPLETED SEE INTERVENTION, SKIN WARM AND DRY RIJ TLC INTACT WITH DRESSING CD&I, VS STABLE; PT AFEBRILE, WITH EXPIRATORY WHEEZES HEARD, O2 REMAINS ON AT 3L VIA NC WITH EXERTIONAL SOB NOTED, PT HAS ADMITTED ANXIETY ISSUES, AND STATES HE HAD A "ISSUE THIS AM BUT THINKS IT WASN'T ALL ANXITY BUT SOME PAIN FROM THE LEFT ARM SAYS HE OFTEN HAS SHOOTING PAINS IN THAT ARM", EMOTIONAL SUPPORT, EDUCATION, AND COMFORT MEASURES PROVIDED, SAFETY MEASURES REINFORCED. TELE CONTINUES READING SR RATE IN THE 80-90'S, PT HAS BEEN ON CAREER DISCOVERY TEACHER PAIN MGMT REGIMEN WHICH IS BEING CONTINUED THIS HOSPITAL STAY, CALL HILL WITHIN REACH, WILL CONTINUE TO MONITOR
--- NOTE | 2017-09-30 08:10 | NUR ---
SET UP ASSIST PROVIDED FOR AM MEAL, MEDICATED ORDERED AND PT TAKES PO MEDICATION W/O INCIDENT, COVERAGE PROVIDED FOR AM ACCU CHECK, WILL CONTINUE TO MONITOR.
--- NOTE | 2017-09-30 08:49 | NUR ---
PT RESTING IN BED USES URINAL WITHOUT INCIDENT, VOIDS ADEQUATE AMOUNTS CLEAR YELLOW URINE, APPETITE FAIR, PT DRINKS PLENTY OF LIQUID BUT TENDS TO WANT DIET SODAS ADMITTEDLY DOES NOT "LIKE WATER" EDUCATED REGARDIDNG DIET PLAN AND DIABETES WITH REGARDS TO DIET SODA INTAKE ETC, PT VERBALIZES UNDERSTANDING BUT THEN STATES WELL AT HOME I DRINK A LOT OF JUICE TOO. EDUCATED PT WITH REGARDS TO THE SUGAR CONTENT IN FRUIT JUICES, PT AGAIN VERBALIZES UNDERSTANDING CALL [facility] WITH[facility] REACH
--- NOTE | 2017-09-30 09:40 | NUR ---
AT BEDSIDE, OFFERS NO NEW COMPLAINTS, CALL [facility] WITH[facility] REACH, AWARE OF PLANNED TRASNFER TO MED SURG, WILL CONTINUE TO MONITOR.
--- NOTE | 2017-09-30 10:32 | NUR ---
OOB TO BSC, TOLERATED ACTIVIYT WELL, ENCOARGED TO INCREASE OOB TIME AND SIT UP IN CHAIR WHEN DONE, VERBALIZES UNDERSTANDING, CALL [facility] WITH[facility] REACH
--- NOTE | 2017-09-30 10:41 | NUR ---
PT CONTINENT OF MODERATE AMOPUNT CLEAR YELLOW URINE AND LARGE FORMED BM, SELF EDNA CARE PROVIDED, PT SITTING UP IN RECLINER AT THIS TIME, TOLERATED ACTIVITY WELL, WILL CONTINUE TO MONITOR.
--- NOTE | 2017-09-30 11:48 | NUR ---
ACCU CHECK COMPLETED COVERAGE GIVEN ORDERED, PT MEDICATED FOR COMPLAINTS OF PAIN, REMAINS SITTING UP IN RECLINER, SET UP ASSIST PROVIDED FOR AFTERNOON MEAL, CALL [facility] WITH[facility] REACH
--- NOTE | 2017-09-30 12:24 | NUR ---
PT REQUESTED SOMETHING DIFFERENT FOR LUNCH, DIETARY NOTIFIED
--- NOTE | 2017-09-30 13:34 | NUR ---
PT REMAINS SITTING UP IN RECLINER, OFFERS NO NEW COMPLAINTS, NEW MEAL TRAY AT BEDSIDE, CALL [facility] WITH[facility] REACH.
--- NOTE | 2017-09-30 14:41 | NUR ---
PT BACK TO BED AFTER LINENS CHANGED, CURRENTLY AT BEDSIDE USES URINAL WITHOT INCIDENT, CONTINENT OF LARGE AMOUTNS CLEAR YELLOW URINE, WILL CONTINUE TO MONITOR
--- NOTE | 2017-09-30 15:10 | NUR ---
REPORT CALLED TO JOSE OLIVIER ON MED SURG ROOM [id number] ASSIGNED, AT BEDSIDE, AWARE OF NEW ROOM ASSIGNMENT, TELE [address]OX [id number] ASSIGNED.
--- NOTE | 2017-09-30 15:35 | NUR ---
PT TRANSFERRED TO MED SURG ROOM 278 VIA WHEELCHAIR, ALL BELONGINGS SENT WITH PATIENT, TELE BOX [id number] ON PT AT TIME OF TRANSFER
--- NOTE | 2017-09-30 15:42 | NUR ---
PT TRANSFERRED FROM ICU VIA WC ACCOMPANIED BY STAFF. IV SITE IS FREE FROM REDNESS OR EDEMA. CONTINUE TO OBSERVE AND MONITOR.
--- NOTE | 2017-09-30 19:45 | NUR ---
PATIENT RESTING IN BED AT THIS TIME WITH HOB ELEVATED AND O2 VIA NASAL CANNULA IN PLACE. PATIENT IS AWAKE ALERT ORIENTED AND ANXIOUS. PATIENT WITH RIGHT TLC TO NECK-IVF PATENT AND INFUSING ORDERED. PATIENT IS VOIDING QS IN URINAL. STATES THAT HE HAD BM TODAY. JUST FINISHING NEB TREATMENT. SAFETY PRECAUTIONS REINFORCED. CALL LIGHT IN REACH. WILL CONT TO MONITOR.
--- NOTE | 2017-09-30 21:00 | NUR ---
PATIENT C/O SEVERE BACK/GENERALIZED PAIN-MEDICATED WITH DILAUDID 8MG PO, MS CONTIN 30MG PO ORDERED. PATIENT IS EXTREMELY ANXIOUS AND DIAPHORETIC. PATIENT MEDICATED WITH XANAX 0.5MG PO ORDERED. [id number]. PELLETIER NOTIFIED AND PATIENT MEDICATED WITH NOVALOG 14UNITS PER SLIDING SCALE PROTOCOL. PATIENT VERBALIZING CONCERNS REGUARDING HIS PAIN MED SCHEDULE-STATES THATHE HAS BEEN SEEING PAIN MANAGEMENT FOR YEARS AND NEEDS HELP WITH COPING WITH HIS MULTIPLE MEDICAL PROBLEMS. ALLOWED PATIENT TO VENT CONCERNS. REASSURANCE WAS OFFERED. EDUCATED PATIENT ON THE PAINMED SCHEDULE AT THIS TIME. SAFETY PRECAUTIONS REINFORCED. CALL LIGHT IN REACH. WILL CONT TO MONITOR.
--- NOTE | 2017-10-01 02:06 | NUR ---
RECIEVED CALL FROM NON DESTRUCTIVE EVALUATION SPECIALIST THAT PATIENT HAS VISITOR, HIS SON HERE TO VISIT. PATIENT STATES THAT HE WANTS THE VISITOR TO COME UP AND VISIT. PATIENT HAD SANDWICH AND DRINK WITH HIM WHEN HE WENT TO THE PATIENT ROOM. EXPLAINED TO THE PATIENT AND HIS SON THAT HIS BS EARLIER WAS HIGH AT 444 AND THAT HE SHOULD NOT HAVE ANY REGULAR SODA OR SANDWICH AT THIS TIME. VERBAL UNDERSTANDING AND THE SON LEFT SHORTLY AFTER COMING IN TO VISIT. PATIENT WAS REQUESTING ICE CREAM EARLIER. STRESSED THE IMPORTANCE OF PROPER DIET BEING THAT HE IS DIABETIC. CALL LIGHT IN REACH. WILL CONT TO MONITOR.
--- NOTE | 2017-10-01 04:48 | NUR ---
PATIENT RESTING IN BED AT THIS TIME WITH O2 VIA NASAL CANNULA IN PLAC. PATIENT MEDICATED WITH DILAUDID 8MG PO FOR C/O PAIN-9/10 ON PAIN SCALE FOR BACK AND GENERALIZED PAIN. MEDICATED WITH XANAX 0.5MG PO FOR ANXIETY AND WITH ROBITUSSIN 10CC FOR COUGH. LAB WORSK DRAWN FROM RIGHT TLC IJ WITHOUT ANY DIFFICULTY. GOOD BLOOD RETURN FROM ALL PORTS-FLUSHED WITH NS PER PROTOCOL. SITE REMAINS HEALTHY AT THIS TIME. SIDERAILS PADDED FOR SEIZURE PRECAUTIONS. SAFETY PRECAUTIONS REINFORCED. CALL LIGHT IN REACH. WILL CONT TO MONITOR.
--- NOTE | 2017-10-01 05:16 | NUR ---
PATIENT STATES THAT HE JUST HAD BM AND HAD BROIGHT RED BLEEDING IN THE TOILET AND BLACK STOOLS. INSTRUCTED PATIENT TO SAVE SPEC IF AND WHEN HE GOES AGAIN FOR STAFF TO EVAL. CALL LIGHT IN REACH. WILL CONT TO MONITOR.
[2017-10-01 05:27] VITALS: BP 151/79
[2017-10-01 06:01] LABS: HEMATOCRIT 29.7 % (39.0-50.0); HEMOGLOBIN 9.4 g/dl (14.0-18.0); MEAN CELL VOLUME 82.3 fL CALC (80.0-100.0); MEAN CORPUSCULAR HGB CONC 31.6 g/L CALC (32.0-36.0); RED BLOOD COUNT 3.61 mill/uL (4.70-6.10); RED CELL DISTRI WIDTH 18.9 % (11.5-15.5)
[2017-10-01 06:19] LABS: INTERNATIONAL NORMALIZED RATIO 3.5 RATIO (0.7-1.3); PROTHROMBIN TIME 40.1 SECONDS (9.0-12.5)
[2017-10-01 06:26] LABS: ANION GAP 17 (6-22 (CALC)); BUN 18 mg/dL (9-20); BUN/CREATININE RATIO 25 (12-20 (CALC)); CALCIUM 9.6 mg/dL (8.4-10.2); CARBON DIOXIDE 24 mmol/l (22-30); CHLORIDE 102 mmol/l (95-108); CREATININE 0.7 mg/dL (0.7-1.3); GFR > 60 ML/MIN (>=60 (CALC)); GFR FOR AFR.AMER. > 60 ML/MIN (>=60 (CALC)); POTASSIUM 3.9 mmol/l (3.5-5.1); SODIUM 140 mmol/l (137-146)
[2017-10-01 06:39] LABS: GLUCOSE 521 mg/dL (75-110)
--- NOTE | 2017-10-01 06:48 | NUR ---
RECIEVED CALL FROM LEW IN THE LAB-GLUCOSE THIS AM-[id number]. DR. PELLETIER CALLED WITH RESULTS. ORDERS RECIEVED TO GIVE AM LEVEMIR 40UNITS AND NOVALOG 15 UNITS NOW. STATES THAT HE WILL ADJUST SOLU-MEDROL TODAY WHEN HE COMES IN. PATIENT STATES THAT HE DOIDN'T HAVE SANDWICH OR DRINK WHEN HIS SON WAS. RESTING IN BED. CALL LIGHT IN REACH. WILL CONT TO MONITOR.
--- NOTE | 2017-10-01 07:00 | NUR ---
SHIFT CHANGE REPORT FROM BOBBI NGUYEN SITTING UP IN BED WITH O2 @ 2L VIA NC IN PLACE, BREATHING SHALLOW, TELE MONITOR IN PLACE, C/O SEVERE ABD PAIN TO R. ABD AND ALSO CHRONIC PAIN, ISSUE ADDRESSED, CALL HILL IN REACH.
--- NOTE | 2017-10-01 07:00 | NUR ---
SHIFT CHANGE REPORT FROM PATRICK, PT IS AWAKE ALERT AND ORIENTED SITTING IN HIGH FOWLERS POSITION, O2 @ 2L IN PLACE VIA N/C, TELE MONITOR IN PLACE, C/O GENERALISED PAIN AND ALSO PAIN TO RIGHT ABDOMEN, DENIES INJURY TO AREA WHICH IS BRUISED. CALL HILL IN REACH, WILL CONTINUE TO MONITOR.
--- NOTE | 2017-10-01 07:04 | NUR ---
PATIENT MEDICATED WITH LEVEMIR 40UNITS AND NOVALOG 15UNITS SQ ORDERED. PATIENT RESTING IN BED AT THIS TIME. CALL LIGHT IN REACH. WILL CONT TO MONITOR.
[2017-10-01 07:52] VITALS: BP 154/79
--- NOTE | 2017-10-01 07:52 | NUR ---
PT ALERT AND ORIENTED X3, VITAL SIGNS OBTAINED STABLE AT THIS TIME. PT SWEATY AND LABORED BREATHING WITH O2 2L AT 97%. PT SET UP FOR BREAKFAST, NO COMPLAINTS AT THIS TIME. CALL HILL WITHIN REACH.
--- NOTE | 2017-10-01 08:15 | NUR ---
PTS CALL LIGHT GOING OFF, TIME STUDY TECHNOLOGIST IN TO SEE PT. PT SWEATY, CRYING AND ROCKING BACK AND FORTH WITH A TOWEL WRAPPED AROUND HIS HEAD. PT REQUESTING PAIN MEDS AT THIS TIME. TIME STUDY TECHNOLOGIST LETS PT KNOW SHE WILL CHECK WHAT TIME BUT MEDS WERE NOT NOT DUE TILL 9. PTS ANXIOUS AND WANTING TO SPEAK WITH THE DR AND LEAVE. TIME STUDY TECHNOLOGIST ASSURES PT SHE WILL CHECK ON THE MED STATUS AND RETURN. PT UNDERSTANDS BUT REMAINS ANXIOUS.
--- NOTE | 2017-10-01 09:00 | NUR ---
PT COMPLAINING OF PAIN, CRYING, LABORED BREATHING AND ROCKING BACK AND FOURTH. AT BEDSIDE TRYING TO CALM PTS ANXIETY. PT STATES PAIN "IS A 20". PT APOLOGETIC AND UNDERSTANDS THAT HE HAS MEDS SCHEDULED AND THEY ARE GIVEN WHEN THEY ARE DUE. PT COMPLAINING OF LRQ PAIN AND LOWER BACK PAIN. PT STATES "ITS NUMB AND TENDER". PT MEDICATED ORDERED FOR PO PAIN MEDS AND SCHEDULED 0900 MEDS. PT GRATEFUL FOR HELP AND STILL APOLOGETIC. LESS ANXIOUS AT THIS TIME. VOICING NO OTHER COMPLIANTS. CALL HILL WITHIN REACH.
--- NOTE | 2017-10-01 10:20 | NUR ---
PT WASHING UP AT BEDSIDE WITH . SUGAR RECHECKED AT THIS TIME 336.
--- NOTE | 2017-10-01 10:45 | NUR ---
PT FEELING A LITTLE BETTER SINCE BEING MEDICATED. LESS ANXIOUS, GRIMACING AT RLQ PAIN. ASSESMENT COMPLETED AT THIS TIME RESPIRATIONS LABORED, LUNG SOUNDS WHEEZY. PERRLA. HEART SOUNDS NORMAL NO TACHYCARDIA NOTED. TUBER MACHINE OPERATOR EQUAL, NO SWELLING OR EDEMA. ABDOMEN ACTIVE IN ALL 4 QUADRANTS. RLQ TENDER TO TOUCH SPECKLED REDNESS NOTED PT GRIMACING TO LIGHT TOUCH. BRUSING NOTED TO LOWER BACK ON RIGHT SIDE NOTED. CONTACT ACID PLANT OPERATOR ASKED PT IF HE HAS FALLEN AT HOME, PT STATES " EMS MADE HIM WALK DOWN SOME STEPS AT HIS HOME AND HE FELL, EMS TREATED HIM VERY BADLY, HE IS SCARED OF BLEEDING INSIDE". PT UP TO CHAIR FOR LINEN CHANGE AND WILL GET WASHED UP WHEN HIS RETURNS. PT COMPLAINING OF SOME ITCHING ALL OVER BODY. CALL HILL WITHIN REACH. . ASSURED TO CALL WHEN HE IS READY TO BE SET UP TO GET WASHED UP.
--- NOTE | 2017-10-01 11:03 | NUR ---
DR PELLETIER AND JOE GHOSH NOTIFIED OF PTS RLQ PAIN, BRUISING, ITCHING AND FALL HE WAS LEAVING HIS HOME WITH EMS.
[2017-10-01] MEDS ORDERED: HYDROMORPHON8 MG PO (11:22)
[2017-10-01] MEDS ORDERED: LEVEMIR100 UNIT/M SC (11:22)
[2017-10-01] MEDS ORDERED: COUMADIN3 MG PO (11:22)
[2017-10-01] MEDS ORDERED: ALPRAZOLAM0.5 MG PO (11:22)
[2017-10-01] MEDS ORDERED: LEVETIRACETAM500 MG PO (11:22)
[2017-10-01] MEDS ORDERED: PREDNISONE10 MG PO (11:22)
[2017-10-01] MEDS ORDERED: IPRATROPIU0.5 MG/3 M IN (11:22)
[2017-10-01] MEDS ORDERED: AUGMENTIN875TAB PO (11:22)
[2017-10-01] MEDS ORDERED: PROTONIX40 MG PO (11:22)
[2017-10-01] MEDS ORDERED: MORPHINE SUL30 M3 PO (11:22)
[2017-10-01] MEDS ORDERED: ROBITUSSIN AC10 ML PO (11:22)
[2017-10-01 11:35] VITALS: BP 163/77
--- NOTE | 2017-10-01 11:37 | NUR ---
PT C/O SHARP PAIN TO RIGHT LATERAL ABDOMEN, ON ASSESSMENT, PURPLE RED BRUISING IS SEEN AND AREA IS TENDER. RED RASH IS ALSO SEEN ONENTIRE TRUNK AND UPPER EXT, WILL CONTINUE TO MONITOR AND REPORT TO MEDICAL STAFF.
[2017-10-01 15:34] VITALS: BP 125/78
--- NOTE | 2017-10-01 16:05 | NUR ---
AMBULATING HALLWAY TO NURSES STATION INDEPENDENTLY AT THIS TIME, ALL NEEDS MET/ADDRESSED, CALL HILL IN REACH.
[2017-10-01 18:33] LABS: HEMATOCRIT 31.1 % (39.0-50.0)
[2017-10-01 19:05] VITALS: BP 141/76
--- NOTE | 2017-10-01 21:30 | NUR ---
BS-[id number]. DR. PELLETIER CALLED AND NEW ORDERS RECIEVED. NOVALOG 14UNITS SQ GIVEN AND LEVEMIR 20UNITS SQ GIVEN ORDERED. PATIENT MEDICATED FOR PAIN WITH DILAUDID 8MG PO, MS CONTIN 30MG PO FOR 10/10 ABD PAIN. PATIENT MEDICATED FOR ANXIETY WITH XANAX 0.5MG PO. PATIENT WITH O2 VIA NASAL CANNULA IN PLACE. RIGHT TLC IJ INTACT AND APPEARS HEALTHY AT THIS TIME. IVF NS PATENT AND INFUSING AT 20CC/HR. PATIENT IS VOIDING CLEAR YELLOW URINE IN URINAL. STATES NO BM SINCE LAST NIGHT-PATIENT AGAIN INSTRUCTED TO CALL STAFF IF AND WHEN HE HAS ANOTHER STOOL FOR STAFF TO ACCESS. PATIENT WITH LARGE ECCYMOTIC ARE TO RIGHT ABD AND ALSO TO THE MIDDLE ABD. STATES THAT IT IS PAINFUL. ARIXSTRA AND COUMADIN HAVE BEEN D/MAGDALENO. SAFETY PRECAUTIONS REINFORCED.CALL LIGHT IN REACH. WILL CONT TO MONITOR.
--- NOTE | 2017-10-02 01:44 | NUR ---
PATIENT RESTING IN BED-MEDICATED FOR PAIN WITH DIDLAUDID 8MG PO 8/10 PAIN SCALE. PATIENT WITH LARGE ECCYMOTIC AREA TO MIDDILE OF ABD AND TO RIGHT FLANK. STATES THAT IT IS MORE PAINFUL THAN HIS BACK PAIN TONIGHT. CALL LIGHT IN REACH. WILL CONT TO MONITOR.
[2017-10-02 04:21] VITALS: BP 132/78
--- NOTE | 2017-10-02 04:30 | NUR ---
PATIENT FOUND UP IN THE BR AFTER RECIEVING CALL FROM ER THAT PATIENT HR-130. PATIENT HAD SMALL BROWN BM WITH MODERATE AMT OF BRIGHT RED BLOOD. PATIENT ALSO HAD SMALL AMT OF BLOOD TINGED SPUTUM. PATIENT BACK TO BED. PATIENT VOIDING CLEAR YELLOW URINE. BLOOD FOR AM LABS DRAWN FROM TLC WITHOUT ANY DIFFICULTY. ALL PORTS FLUSHING WELL WITH GOOD BLOOD RETURN. ALL POSTS FLUSHED PER PROTOCOL. IVF NS PATENT AND INFUSING AAS ORDERED. PATIENT ANXIETY IS ON THE RISE. PATIENT CONT TO C/O PAIN TO RIGHT FLANK THRU THE MID ABD. SAFETY PRECAUTIONS REINFORCED. CALL LIGHT IN REACH. WILL CONT TO MONITOR.
--- NOTE | 2017-10-02 06:17 | NUR ---
PATIENT APPEARS SLEEPING AT THIS TIME WITH H OB ELEVATED AND O2 VIA NASAL CANNULA IN PLACE. IVF ZOSYN INFUSING ORDERED VIA RIGHT TLC. CALL LIGHT IN REACH. WILL CONT TO MONITOR.
[2017-10-02 06:27] LABS: INTERNATIONAL NORMALIZED RATIO 1.7 RATIO (0.7-1.3); PROTHROMBIN TIME 18.8 SECONDS (9.0-12.5)
[2017-10-02 06:29] LABS: ANION GAP 16 (6-22 (CALC)); BUN 24 mg/dL (9-20); BUN/CREATININE RATIO 36 (12-20 (CALC)); CALCIUM 9.7 mg/dL (8.4-10.2); CARBON DIOXIDE 28 mmol/l (22-30); CHLORIDE 102 mmol/l (95-108); CREATININE 0.7 mg/dL (0.7-1.3); GFR > 60 ML/MIN (>=60 (CALC)); GFR FOR AFR.AMER. > 60 ML/MIN (>=60 (CALC)); GLUCOSE 235 mg/dL (75-110); MAGNESIUM 1.8 mg/dL (1.6-2.3); POTASSIUM 4.1 mmol/l (3.5-5.1); SODIUM 142 mmol/l (137-146)
[2017-10-02 06:38] LABS: HEMATOCRIT 29.8 % (39.0-50.0); HEMOGLOBIN 9.5 g/dl (14.0-18.0); MEAN CELL VOLUME 82.5 fL CALC (80.0-100.0); MEAN CORPUSCULAR HGB 26.3 pG CALC (26.0-32.0); MEAN CORPUSCULAR HGB CONC 31.9 g/L CALC (32.0-36.0); RED BLOOD COUNT 3.61 mill/uL (4.70-6.10); RED CELL DISTRI WIDTH 20.1 % (11.5-15.5)
[2017-10-02 06:39] LABS: IMMATURE GRANULOCYTES 13.3 % (0.0-1.0); PLATELET COUNT 281 thou/uL (130-400)
[2017-10-02 06:40] LABS: BAND 2 % (0-8); MANUAL DIFFERENTIAL YES
--- NOTE | 2017-10-02 07:00 | NUR ---
SHIFT CHANGE REPORT FROM PATRICK, PT SLEEPING BUT AWAKENED TO VERBAL STIMULI, C/O SEVERE PAIN TO RIGHT SIDE AND EXPRESSES CONCERN ABOUT BLEEDING STATING HE PASSED DARK RED BLOOD FROM RECTUM; HOWEVER, NIGHT RN REPORTED SHE SAW BRIGHT RED BLOOD IN STOOL, DID HEMACULT FROM MIDDLE OF STOOL AND GOT NEGATIVE RESULT. PT ALSO C/O OF COUGHING UP BLOODY SPUTUM, GIVEN SPECIMEN CUP AND ADVISED TO LEAVE SPECIMEN FOR EVALUATION. WILL CONTINUE TO MONITOR.
[2017-10-02 07:46] VITALS: BP 125/78
--- NOTE | 2017-10-02 10:26 | NUR ---
PT HAD BM WITH LARGE AMOUNT BRIGHT RED BLOOD AND SOME CLOTS, ALSO EXPECTORATED DARK BLOOD, RELAY CHECKER NOTIFIED. PT ALSO VOICED CONCERN TO CM RUBI, WILL CONTINUE TO MONITOR AND ASSESS CONDITION.
--- NOTE | 2017-10-02 10:47 | NUR ---
IMAGING PROCEDURE ORDERED, TRANSPORTER HERE TO TAKE PT TO PROCEDURE AT THIS TIME.
[2017-10-02 11:15] VITALS: BP 131/87
--- NOTE | 2017-10-02 11:38 | NUR ---
RETURNED FROM PROCEDURE AND SETTLED IN BED.
[2017-10-02 15:48] VITALS: BP 150/86
--- NOTE | 2017-10-02 16:47 | NUR ---
PT REPORTED VOMITTED BLOOD ON LINNENS THEREFORE IT WAS NOT MEASURED, HOWEVER THERE WAS MODERATE AMOUNT BRIGHT RED BLOOD WITH CLOTS OBSERVED ON LINNEN. CENTRAL LINE DRESSING CHANGED USING STERILE PROCEDURE.
--- NOTE | 2017-10-02 19:30 | NUR ---
PATIENT RESTING IN BED AT THIS TIME WITH HOB ELEVATED. AWAKE ALERT AND ORIENTEDX3- AT BEDSIDE. PATIENT WITH LARGE ECCYMOTIC AREA FROM RIGHT FLANK AROUND TO MID ABD-SIZE HAS INCREASED SINCE LAST NIGHT. CONT TO HAVE PAIN TO THE AFFECTED AREA. STATES THAT HIS PAIN LEVEL IS 6/10 AFTER BEING MEDICATED ON DAY SHIFT APPROX 1830. PATIENT WITH RIGHT NECK TLC PATENT AND INFUSING AT 20CC/HR ORDERED. SITE APPEARS HEALTHY AT THIS TIME. SAFETY PRECAUTIONS DISCUSSED WITH PATIENT. CALL LIGHT IN REACH. WILL CONT TO MONITOR.
[2017-10-02 19:55] VITALS: BP 141/81
--- NOTE | 2017-10-02 22:30 | NUR ---
PATIENT C/O PAIN AND MEDICATED WITH DILAUDID 8MG PO ORDERED FOR PAIN. MEDICATED FOR ANXIETY WITH XANAX 0.5MG PO AND FOR COUGH WITH GUESSEIFEN AC 10CC. REMAINS AT BEDSIDE. VOIDING CLEAR YELLOW URINE IN URINAL. CALL LIGHT IN REACH. WILL CONT TO MONITOR.
[2017-10-03] VITALS (7 sets, daily range): BP systolic 138–177; BP diastolic 78–96
--- NOTE | 2017-10-03 02:30 | NUR ---
PELT DROPPER REPORTS THAT PATIENT HAD CLOTS IN HIS URINE. ALSO PATIENT IS REQUESTING PAIN MEDS. PATIENT FOUND OOB AMB IN THE HALLS IN NO ACUTE DISTRESS-RETURNED TO ROOM FOR PAIN MEDS-MEDICATED WITH DILAUDID 8MG PO FOR 9/10 ON PAIN SCALE. WHEN PATIENT ASKED ABOUT THE CLOTS IN URINAL PATENT STATES THAT WHEN HE HAD TO "VOMIT " HE GRABBED THE URINAL AND SPIT IN THE URINAL WITH THE URINE. NO CLOTS IN URINE. PATIENT PROVIDED WITH EMESIS BAG FOR ANY SECREATIONS AND/OR VOMIT. SAFETY PREDAUTIONS REINFORCED. CALL LIGHT IN REACH. WILLCONT TO MONITOR.
--- NOTE | 2017-10-03 03:40 | NUR ---
PATIENT RESTING IN BED-STATES LITTLE IMPROVEMENT IN PAIN-8/10 ON PAIN SCALE. PATIENT IS AXIOUS AND DIAPHORETIC. MEDICATED WITH XANAX AND COUGH MED. HUMIDIFICATION ADDED TO THE O2 VIA NASAL CANNULA. HOB ELEVATED. CALL LIGHT IN REACH. WILL CONT TO MONITOR.
[2017-10-03 06:50] LABS: HEMATOCRIT 30.6 % (39.0-50.0); HEMOGLOBIN 9.7 g/dl (14.0-18.0); MEAN CELL VOLUME 83.2 fL CALC (80.0-100.0); MEAN CORPUSCULAR HGB 26.4 pG CALC (26.0-32.0); MEAN CORPUSCULAR HGB CONC 31.7 g/L CALC (32.0-36.0); RED BLOOD COUNT 3.68 mill/uL (4.70-6.10); RED CELL DISTRI WIDTH 20.7 % (11.5-15.5)
--- NOTE | 2017-10-03 07:25 | NUR ---
REPORT RECEIVED FROM NIGHT NURSE, PT.AWAKE UPRIGHT IN BED WITH LOW LIGHTS, TV ON. DENIES ANY NEEDS AT THIS TIME. CALL LIGHT W/IN REACH
[2017-10-03 08:49] LABS: INTERNATIONAL NORMALIZED RATIO 1.1 RATIO (0.7-1.3); PROTHROMBIN TIME 12.7 SECONDS (9.0-12.5)
--- NOTE | 2017-10-03 13:35 | NUR ---
PT.FOUND IN DOORWAY OF HIS ROOM WITH WALKER AND IV POLE LEANED UP AGAINST HIS WALKER TRYING TO WALK HALLWAY. PT.HAD NOT CALLED TO ASK FOR HELP. I RE-INSTRUCTED PT.TO CALL FOR HELP GETTING UP OR WALKING AROUND. PT.REQUESTED A WHEELCHAIR TO SIT IN DOWN AT THE END OF THE WARD TO SEE OUT THE WINDOW. I ASSISTED PT.INTO A WHEELCHAIR AND HELPED HIM DOWN THE WARD TO LOOK OUTSIDE. PT.ASSISTED BACK TO ROOM AND LEFT IN BED W/CALL LIGHT AT SIDE
--- NOTE | 2017-10-03 14:20 | NUR ---
PT.CALLED TO REPORT THAT HE HAD A BM. VISUALIZED BROWN STOOL IN TOILET WITH BRIGHT RED IN TOILET. NOTIFIED LILLIAN GHOSH.
--- NOTE | 2017-10-03 15:45 | NUR ---
PT. CAME WALKING DOWN HALLWAY HEADED TOWARD NURSES STATION WITH BLOOD RUNNING DOWN HIS NECK AND FRONT OF GOWN. PT.WAS UNAWARE THAT HE WAS BLEEDING. IV TUBING WAS WRAPPED AROUND HIS LEG FROM IV POLE AND TRIPLE LUMEN IJ WAS NOT IN PLACE ANYMORE. I ASSISTED PT.BACK TO HIS ROOM AND FOUND THE IJ HANGING ON THE INSIDE OF HIS GOWN TIP INTACT. PT.DENIED KNOWING THAT IT WAS OUT. I STOPPED THE BLEEDING WITH 4X4 GAUZE AND CLEANED PT.UP. I CHECKED SUTURES TO BE REMOVED, THEY WERE LOOSE AND CAME OUT UPON CLEANING WITH ALCOHOL WIPE. PT.REPORTED THAT HE WANTED TO WALK AND BRING ME HIS LIST OF MEDICAL TREATMENTS HISTORY. I INSTRUCTED PT. TO CALL FOR ASSISTANCE IF HE NEEDS TO AMBULATE. PT.IS VISIBLY UPSET ABOUT PULLING IJ OUT, I REASSURED HIM THAT ACCIDENTS HAPPEN. PT.MEDICATED WITH PAIN MEDICATION AND LEFT WITH GAUZE AND TEGADERM BANDAGE ON NECK. DAUGHTER IS AT BEDSIDE COMFORTING PT.
--- NOTE | 2017-10-03 18:36 | NUR ---
PT.APPEARED IN HALLWAY IN WHEELCHAIR WITH WET TOWEL ON HIS HEAD STATING "I FELL IN BATHROOM. I WAS POOPING BLOOD AND GOT DIZZY AND FELL OVER." PT.APPEARS TO HAVE A REDDENED RAISED AREA TO RIGHT SIDE OF FOREHEAD. NO BM OR BLOOD FOUND IN TOILET. I ASKED THE PT.ABOUT IT, BECAUSE HE HAD BEEN INSTRUCTED TO LEAVE ANY URINE OR STOOL AND NOT TO FLUSH, HE ADMITTED TO FLUSHING TOILET. PT.BED HAD WET SPOTS IN IT, HE DENIED SPILLING ANYTHING. BLOOD SUGAR WAS CHECKED, V/S ASSESSED. LILLIAN GHOSH WAS ON THE FLOOR AND NOTIFIED.
--- NOTE | 2017-10-03 19:30 | NUR ---
PATIENT RESTING IN BED AT THIS TIME-FAMILY AT BEDSIDE. BROUGHT IN FO0D FOR PATIENT. ATTEMPTED TO EDUCATED PATIENT AND FAMILY REGUARDING DIAB DIET PATIENT HAS BEEN REUNNING SEVERELY HIGH DURING THE HOSPITALIZATION AND FREQUENTLY ASKING FOR SNACK. NEED TO LIMIT THE AMOUNT OF EXTRAS THAT ARE BEING BROUGHT IN FROM HOME. SONS BOTH VERBALIZE UNDERSTANDING OF THE STATED. SAFETY PRECAUTIONS EXPLAINED TO PATIENT AND FAMILY SINCE PATIENT DID JUST HAVE FALL. NEEDS TO CALL FOR ASSIST WHEN HE NEEDS TO GET OOB. CALL LIGHT IN REACH. WILL CONT TO MONITOR.
--- NOTE | 2017-10-03 20:15 | NUR ---
PATIENT RESTING IN BED AT THIS TIME. PATIENT WITH TOWELS AROUND HIS HEAD-LARGE LUMP RIGHT FOREHEAD. PATIENT BOBBING BACK AND FORTH WITH HIS HEAD. PATIENT INSTRUCTED REGUARDING CT OF BRAIN THAT WAS ORDERED SECONDARY TO HIS RECENT FALL. PATIENT NEEDS TO CALL FOR ASSIST WHEN GETTING OOB DUE TO FALL. PATIENT STATES THAT HE WANTS AMA PAPER-HE HAS MEDICINE AT HOME AND IS GOING TO LEAVE. PATIENT GIVEN EXPLANATION AGAIN REGUARDING SAFETY CONCERNS SINCE FALL. STATES THAT HE WILL NOW GO FOR CT BRAIN. PATIENT WAS TAKEN TO RADIOLOGY VIA WHEELCHAIR AND RETURNED BACK TO HIS ROOM. RESTING IN BED AT THIS TIME.
--- NOTE | 2017-10-03 21:30 | NUR ---
PATIENT RESTING IN BED. PATIENT IS INAPPROPRIATE AT TIMES-STATES THAT SOMETHING IS NOT RIGHT IN HIS HEAD. VERY EMOTIONAL AND TEARFUL. PATIENT MEDICATED WITH DILAUDID FOR PAIN AND XANAX FOR ANXIETY. COUGH MED ORDERED. IN TO VISIT-PATIENT STATES THAT HE THOUGHT THAT WE WERE GOING TO "TIE HIM DOWN" IN THE BED. EXPLAINED TO THE PATIENT THAT WAS NEVER SAID AND THAT HE WAS VERY MISTAKEN. PATIENT WAS ASKED TO CALL FOR ASSISTANCE IF HE NEEDED TO GET OOB DUE TO HIS FALL EARLIER TONIGHT. NEURO CHECK SHOWS-CHELSEA. KEENAN WNL. HAND GRASPS ARE EQUEL. DOESN'T KNOW HOSPITAL NAME OF PRESIDENT. DOES KNOW MONTH OF THE YEAR AND HIS OWN BIRTHDATE, SAFETY PRECAUTIONS REINFORCED. CALL LIGHT IN REACH. WILL CONT TO MONITOR.
--- NOTE | 2017-10-04 01:00 | NUR ---
PATIENT RESTING IN BED C/O 05/20 PAIN-HEAD, ABD, BACK-MEDICATED WITH DILAUDID 8MG PO FOR PAIN. CHOCOLATE PUDDING-ZORAIDA PROVIDED PER PATIENT REQUEST. CALL LIGHT IN REACH. WILL CONT TO MONITOR.
--- NOTE | 2017-10-04 03:45 | NUR ---
PATIENT RESTING IN BED- IS BACK TO VISIT. URINAL EMPTIED FOR 300CC OF YELLOW URINE. PATIENT C/O SEVERE BACK/ABD ABD HEAD PAIN. TOO EARLY FOR PAIN MEDS AT THIS TIME. PATIENT CONT TO BE HIGH ANXIETY. OFFERED XANAX ANS PATIENT STATES THAT HE WILL WAIT AND TAKE IT WITH HIS PAIN MEDS. NEURO CHECK IS UNCHANGED. CALL LIGHT IN REACH. WILL CONT TO MONITOR.
--- NOTE | 2017-10-04 05:15 | NUR ---
RECIEVED CALL BACK FROM [facility]-SPOKE WITH ESTEFANIA STATES THAT THERE ARE NO AVAILABLE BEDS AT [facility]. PATIENT RESTING IN BED- AT BEDSIDE. PATIENT CONT TO BE EMOTIONAL AND TEARFUL-DOESN'T WANT BLOOD DRAWN BECAUSE "IT HURT TOO MUCH". MUCH ENCOURAGEMENT AND REASSURANCE OFFER AND EXECUTIVE SEARCH CONSULTANT WAS ABLE TO GET SPEC ON FIRST STICK. PATIENT MEDICATED FOR PAIN 05/20 WITH DILAUDID, FOR ANXIETY WITH XANAX 0.5MG PO AND FOR COUGH WITH ROBITUSSIN AC. NEURO CHECKS UNCHANGED. CALL LIGHT IN REACH. WILL CONT TO MONITOR.
[2017-10-04 05:36] VITALS: BP 139/33
--- NOTE | 2017-10-04 05:36 | NUR ---
PATIENT RESTING IN BED. PATIENT BEHAVIOR TONIGHT HAS BEEN INAPPROPRIATE MOST OF THE NIGHT-STATES THAT HE DOESN'T KNOW THE NAME OF THE HOSPITAL, DOESN'T KNOW THE PRESIDENT. PATIENT DOES KNOW THE MONTH AND BIRTHDATE. HAS BEEN CALLING FOR HIS TO COME BACK TO THE HOSPITAL. VS ARE STABLE. O2 SAT 96% ON RA. AFEBRILE. TELE NS-70-80'S. STILL WITH LARGE ECCYMOSIS TO RIGHT FLANK AROUND TO THE MID ABD BUT SEEMS TO BE FADING SLIGHTLY. NO BLEEDING NOTED THIS SHIFT. URINAL IS YELLOW AND CLEAR. CALL LIGHT IN REACH. WILL CONT TO MONITOR.
[2017-10-04 05:46] LABS: HEMATOCRIT 27.4 % (39.0-50.0); HEMOGLOBIN 8.9 g/dl (14.0-18.0)
[2017-10-04 06:08] LABS: INTERNATIONAL NORMALIZED RATIO 1.1 RATIO (0.7-1.3); PROTHROMBIN TIME 12.2 SECONDS (9.0-12.5)
--- NOTE | 2017-10-04 07:30 | NUR ---
ENTERED ROOM FOR BEDSIDE REPORT, PT.WAS UP GETTING GLOVES OUT OF GLOVE BOX ON WALL. WHEN I ASKED WHAT HE WAS DOING HE STATED, "I'M CLEANING UP." I ASKED HIM TO PLEASE SIT ON THE SIDE OF THE BED AND I WOULD HELP HIM. I EXPLAINED/REINFORCED THE NECESSITY OF HIM TO CALL FOR HELP AND WAIT FOR ASSISTANCE. PT.ACKNOWLEDGED AND PROCEEDED TO RESPOND APPROPRIATELY REGARDING HIS NIGHT, STATED "WHY AM I BLEEDING?" PT.POINTED TO ABD/FLANK AREA. "THERE IS STUFF IN BATHROOM." I CHECKED BATHROOM, TRACE PINK FOUND IN TOILET WITH TRACE BROWN STOOL." PT.WAS ASSISTED CLEANING UP AND LEFT IN BED WITH CALL LIGHT IN HAND AND HAS BEEN REINSTRUCTED TO CALL IF HE NEEDS ANY ASSISTANCE.
--- NOTE | 2017-10-04 08:50 | NUR ---
ENTERED ROOM TO ADMINISTER AM MEDICATIONS, PT.'S BED ALARM WAS OFF. I RESET ALARM AND UPON ALARM SETTING BEEP PT.ASKED, "WHAT WAS THAT?" I EXPLAINED THAT IT WAS THE BED ALARM I HAD EXPLAINED EARLIER DUE TO HIM GETTING OUT OF BED W/OUT CALLING. PT.MEDICATED W/AM MEDICATIONS, V/S REASSESSED AND POC DISCUSSED WITH PT. PT.REPORTED THAT HE ATE TWO JELLO'S AND NOW FELT NAUSEOUS, BREAKFAST IS AT BEDSIDE UNEATEN, TWO OPENED/EMPTY JELLO PACKS ON BEDSIDE TABLE. PT.LEFT UPRIGHT IN BED WITH BE3D ALARM IN HAND. REORIENTED PT.TO CALL SYSTEM AND INSTRUCTED PT.TO CALL BEFORE GETTING UP.
[2017-10-04 09:01] VITALS: BP 143/77
--- NOTE | 2017-10-04 09:06 | NUR ---
I SPOKE WITH BOTH AUDIO/VISUAL MANAGER'S ON FLOOR AND CAUTIONED THEM TO THE IMPORTANCE OF PT.'S BED ALARM BEING KEPT ON AND THE POSSIBLITIY TO PT.TURNING BED ALARM OFF.
--- NOTE | 2017-10-04 09:38 | NUR ---
PT.CALLED, UPON ENTERING ROOM PT WAS ON THE PHONE, APPEARED TO BE DISCUSSED MEDICAL POC WITH INSURANCE. HE CALLED TO ASK THE DOCTORS NAME THAT IS TREATING HIM AT THE HOSPITAL. PT.APPEARS TO BE LOC AND APPROPRIATE IN COMMUNICATION REGARDING POC.
--- NOTE | 2017-10-04 10:30 | NUR ---
RECEIVED A PHONE CALL FROM [facility] ASKING IF WE WERE STILL IN NEED OF A BED AND TRANSFER SERVICES. I INFORMED THEM THAT WE ARE STILL AWAITING A BED AND IN NEED OF TRANSFER SERVICES.
--- NOTE | 2017-10-04 11:10 | NUR ---
AUTO HEADLIGHT MECHANIC REPORTED THAT SHE LEFT THE ROOM WITH BED ALARM ON AND SHE JUST WALKED BY AND BED ALARM IS OFF. UPON ENTERING ROOM, IS IN RESTROOM, BED ALARM OFF, PT. IS IN THE BED. I SET BED ALARM TO ON, PT.ASKED WHAT THAT IS, I STATED TURNING BED ALARM ON BECAUSE HE WAS NOT CALLING FOR ASSISTANCE AND HE IS AT RISK FOR FALLING AND NEEDS ASSISTANCE.
--- NOTE | 2017-10-04 11:20 | NUR ---
BED ALARM SOUNDED, I ENTERED THE ROOM, PT WAS REACHING OVER BED PUSHING BUTTON ON ALARM. WAS AT BEDSIDE. PT.REPORTED THAT HE WAS TRYING TO USE THE URINAL. PT.ASSISTED AND BED ALARM RESET PRIOR TO LEAVING THE ROOM. CALL LIGHT W/IN REACH AND AT BEDSIDE.
[2017-10-04 11:40] VITALS: BP 112/74
--- NOTE | 2017-10-04 11:58 | NUR ---
PT IS ON THE PHONE , SPEAKING TO THE INSURANCE COMPANY AND STATED NAME AND DATE OF ASKING ABOUT PRESCRIPTIONS AND ABLE TO GET THEM. WHEN ASKED NAME AND DATE OF FOR INSULIN STATED" I AM A LITTLE CONFUSED ON THE NAME BUT IT IS [employer]STOFER, ". THEN THE INSURANCE COMPANY PICKED UP ON THE LINE.
--- NOTE | 2017-10-04 12:01 | NUR ---
FAUSTO WITH [facility] CALLED WITH ROOM#430/BED 2 ALONG WITH REPORT NUMBER.
--- NOTE | 2017-10-04 13:12 | NUR ---
PT.LEFT UNIT FLOOR VIA STRETCHER ACCOMPANIED BY [facility] IN STABLE CONDITION. PT.'S WILL BE NOTIFIED THAT HE HAS BEEN TRANSFERRED AND REPORT WILL BE CALLED.
--- NOTE | 2017-10-04 13:43 | NUR ---
REPORT CALLED TO JASWANT RN AND CALLED/MESSAGE LEFT REGARDING TRANSFER W/ROOM AND BED NUMBER.
== END 2017-10-04 13:03 | DRG 896 ==
LOC: ED 04:28 → ED-I 05:20 → ED 06:02 → MS2 06:03 → ICU 08:32 → MS2 09-30 15:36
PROVIDERS: Family Medicine; Nurse Practitioner Family; ADMIT Internal Medicine; ATTEND Internal Medicine
PROC: 02HV33Z Insertion of Infusion Device into Superior Vena Cava, Percutaneous Approach (ICD-10-PCS; principal; 2017-09-27)
PROC: 5A1945Z Respiratory Ventilation, 24-96 Consecutive Hours (ICD-10-PCS; 2017-09-27)
PROC: 0BH17EZ Insertion of Endotracheal Airway into Trachea, Via Natural or Artificial Opening (ICD-10-PCS; 2017-09-27)
DX: F11.23 Opioid dependence with withdrawal (principal); J96.00 Acute respiratory failure, unspecified whether with hypoxia or hypercapnia; J44.1 Chronic obstructive pulmonary disease with (acute) exacerbation; E87.3 Alkalosis; C81.90 Hodgkin lymphoma, unspecified, unspecified site; R04.2 Hemoptysis; K62.5 Hemorrhage of anus and rectum; D68.32 Hemorrhagic disorder due to extrinsic circulating anticoagulants; E11.65 Type 2 diabetes mellitus with hyperglycemia; G40.909 Epilepsy, unspecified, not intractable, without status epilepticus; E03.9 Hypothyroidism, unspecified; T40.2X5A Adverse effect of other opioids, initial encounter; D63.8 Anemia in other chronic diseases classified elsewhere; G89.29 Other chronic pain; T38.0X5A Adverse effect of glucocorticoids and synthetic analogues, initial encounter; F41.9 Anxiety disorder, unspecified; R23.3 Spontaneous ecchymoses; T45.515A Adverse effect of anticoagulants, initial encounter; Z21 Asymptomatic human immunodeficiency virus [HIV] infection status; Z79.01 Long term (current) use of anticoagulants; Z86.74 Personal history of sudden cardiac arrest; Z79.4 Long term (current) use of insulin; Z86.718 Personal history of other venous thrombosis and embolism; Z88.8 Allergy status to other drugs, medicaments and biological substances; Z91.14 Patient's other noncompliance with medication regimen
CPT/HCPCS: J0692; J1953; J2060; J2250; S0164

== ENCOUNTER 2018-06-22 09:56 | Observation (INO) | payer MEDICARE ==
[~2018-06-22] VITALS: Ht 167.6 cm; Wt 85.0 kg
[~2018-06-22 09:56] MED LIST changes: +AUGMENTIN875TAB PO; +COUMADIN3 MG PO; +COUMADIN5 MG PO; +HYDROMORPHON8 MG PO; +IPRATROPIU0.5 MG/3 M IN; +LEVEMIR100 UNIT/M SC; +LINEZOLID600 MG PO; +NORVIR100 M1 PO; +PREDNISONE10 MG PO; +PROTONIX40 MG PO; +ROBITUSSIN AC10 ML PO
--- NOTE | 2018-06-22 09:58 | NUR ---
PT DIRECTLY TO ROOM VIA WHEELCHAIR FOR BEDSIDE TRIAGE. MD NOTIFIED OF PT STATUS.
[2018-06-22] MEDS ORDERED: METHADONE10 M1 PO (10:30)
[2018-06-22] MEDS ORDERED: [UNRECOGNIZED DRUG - SUPPLY] (10:43)
[2018-06-22] MEDS ORDERED: ACCUPRIL5 MG PO (10:43)
--- NOTE | 2018-06-22 10:48 | NUR ---
PT BREATHING EASIER, SATS AT 98% ON 3 L PNC. PT STATES FEELS BETTER AT THIS TIME.
--- NOTE | 2018-06-22 10:48 | NUR ---
UNABLE TO RECONCILE HOME MEDS AT THIS TIME. FAMILY WILL BRING LIST BACK WITH THEM WHEN THEY COME.
--- NOTE | 2018-06-22 10:53 | NUR ---
PT STATES HE IS STARTING TO FEEL PAIN ALL OVER, STATES HE TAKES METHADONE FOR CHRONIC PAIN EVERYWHERE SINCE HE HAD THE LUNG CANCER, AND HE STARTS TO BECOME ANXIOUS AND CANT BREATHE IF HE DOESNT CONTROL THE PAIN, STATES THEY INTUBATED HIM LAST TIME FOR THAT COMPLAINT.
[2018-06-22 11:14] LABS: MEAN CELL VOLUME 81.9 fL CALC (80.0-100.0); MEAN CORPUSCULAR HGB 28.6 pG CALC (26.0-32.0); MEAN CORPUSCULAR HGB CONC 34.9 g/L CALC (32.0-36.0); NEUT# 7.43 thou/uL (1.82-7.42); RED BLOOD COUNT 5.25 mill/uL (4.70-6.10); RED CELL DISTRI WIDTH 13.2 % (11.5-15.5)
--- NOTE | 2018-06-22 11:14 | NUR ---
PT SITTING UP IN BED, STATES FEELS MUCH BETTER AFTER THE MORPHINE AND ATIVAN.
[2018-06-22 11:21] LABS: BILIRUBIN, TOTAL 0.5 mg/dL (0.0-1.4); BUN 11 mg/dL (9-20); BUN/CREATININE RATIO 19 (12-20 (CALC)); CHLORIDE 104 mmol/l (95-108); CREATININE 0.5 mg/dL (0.7-1.3); GFR > 60 ML/MIN (>=60 (CALC)); GFR FOR AFR.AMER. > 60 ML/MIN (>=60 (CALC)); POTASSIUM 3.5 mmol/l (3.5-5.1); SGOT/AST 34 u/l (17-59); SODIUM 137 mmol/l (137-146)
[2018-06-22 11:23] LABS: ALBUMIN 4.4 g/dL (3.2-5.0); ALKALINE PHOSPHATASE 284 u/l (38-126); ANION GAP 20 (6-22 (CALC)); CARBON DIOXIDE 17 mmol/l (22-30); TOTAL PROTEIN 7.8 g/dL (6.3-8.2)
--- NOTE | 2018-06-22 11:45 | NUR ---
REPORT GIVEN TO ICU. PT PACKAGED UP AND READY TO TAKE TO ICU WITH LC, LAB CAME TO ROOM AND STATES NEEDS TO DRAW SOME MORE BLOOD.
--- NOTE | 2018-06-22 11:50 | NUR ---
REPEAT ACCUCHECK DONE AND SHOWS CRITICAL HI STILL, CHARGE NURSE NOTIFED. ADDITIONAL ACCUCHECK THRU LAB ORDERED
--- NOTE | 2018-06-22 11:55 | NUR ---
BOTH ACCUCHECKS WERE OBTAINED BEFORE ANY INSULINS GIVEN
--- NOTE | 2018-06-22 11:56 | NUR ---
MAGNESIUM DRIP STOPPED UNTIL REPEAT LAB WORK CAN BE DRAWN PER CHARGE NURSES DIRECTIVE.
--- NOTE | 2018-06-22 12:21 | NUR ---
VITAL SIGNS REMAIN STABLE. PTS RESP AROUND 20, NOT LABORED AT THIS TIME. SITTING UP IN BED, SIDE RAILS REMAIN UP, BED LOWERED. CALL LIGHT WITHIN REACH
--- NOTE | 2018-06-22 12:56 | NUR ---
LAB IN DRAWING WND LACTIC ACID
--- NOTE | 2018-06-22 13:13 | NUR ---
LIGHTS TURNED OFF, PT RESTING QUIETLY. CALL LIGHT REMAINS WITHINT REACH. VITAL SIGNS STABLE.
[2018-06-22 13:25] LABS: BARBITURATES NEGATIVE (NEGATIVE); COCAINE NEGATIVE (NEGATIVE); METHADONE POSITIVE (NEGATIVE); OXCYCODONE NEGATIVE (NEGATIVE); TETRAHYDROCANNABIONOL NEGATIVE (NEGATIVE); TRICYLIC ANTIDEPRESSANTS NEGATIVE (NEGATIVE)
--- NOTE | 2018-06-22 13:32 | NUR ---
IV FLUIDS INFUSING.
--- NOTE | 2018-06-22 13:54 | NUR ---
ACCUCHECK OBTAINED REPEAT 421
--- NOTE | 2018-06-22 13:57 | NUR ---
PHARMACY CONSULT ORDERED BECAUSE PT CAN NOT REMEMBER HIS MEDICATIONS OR DOSAGES, FAMILY IS SUPPOSE TO BE BRINGING IN LIST BUT HAS NOT SHOWN UP IN ER OF THIS TIME.
--- NOTE | 2018-06-22 14:50 | NUR ---
Admission Note Report Given to: SBAR PRINTED TO FLOOR Transported by: Wheelchair X Stretcher Transported with: X Nurse Transporter X Patent IV O2 X Asset Protection Lead
--- NOTE | 2018-06-22 14:55 | NUR ---
MET JEAN-BAPTISTE RN WITH PT AT ED, TRANSPORTED TO US FOR VENOUS DOPPLER OF BLE. PT TOLERATED WELL
--- NOTE | 2018-06-22 15:05 | NUR ---
ON WAY TO ICU WAS MET AT [facility] WITH PT AND DIRECTED DOWN TO ULTRASOUND PER ISRAEL RN FROM ICU. PT TAKEN TO ULTRASOUND PER MYSELF AND ISRAEL RN. CARE GIVEN OVER TO ISRAEL RN IN ULTRASOUND ROOM
[2018-06-22 15:25] VITALS: BP 128/80
--- NOTE | 2018-06-22 15:25 | NUR ---
RECIEVED REPORT VIA TELEPHONE FROM JANES JEAN-BAPTISTE. FROM ED.
--- NOTE | 2018-06-22 15:25 | NUR ---
PT ARRIVED TO ICU BED 5 VIA STRETCHER FROM US, PT TRANSFERRED SELF FROM STRETCHER TO ICU BED 5, SLOW STEADY GAIT, PT WT ON BED SCALE 187.8, PT A&0X3, ABLE TO MAKE NEEDS KNOWN, PERRL. ST ON TELEMETRY, HR 111, B/P-128/80, RR-20, SA02@100% ON 02@2LPM VIA NC. RESP EVEN/LABORED, AUDIBLE WHEEZING NOTED. LS COARSE/WHEEZING THROUGHOUT.PRODUCTIVE COUGH NOTED, SPUTUM SPECIMEN OBTAINED AND SENT TO LAB. PT ABDOMEN DISTENDED/SOFT, NON-TENDER, BSX4 ACTIVE PT STATES LAST BM 10--18. PT PASSING GAS. PT CONTINENT OF BLADDER, PERULENT PENIAL DISCHARGE, C&S SAMPLE SENT TO LAB. PT REPORT BURNING WITH URINATION. GENERALIZED PAIN, GAGE IN CHEST "10" ON 1-10 SCALE. PT WITH 20G TO R SHOULDER/SL, FLUSHED WITHOUT DIFFICULTY, NO S/S OF INFILTRATION AT THIS TIME. PT RESTING IN BED, LOWEST POSITION. CALL LIGHT IN REACH. WILL MONITOR.
--- NOTE | 2018-06-22 15:30 | NUR ---
DR. FORREST AND LILLIAN GHOSH AT BEDSIDE FOR ASSESSMENT AND TO DISCUSS PLAN OF CARE, NEW ORDERS RECIEVED.
--- NOTE | 2018-06-22 15:45 | NUR ---
JANES CHAPPELL INFECTION PREVENTIONIST AT BEDSIDE TO DISCUSS POSSIBILITY OF PENDING TRANSFER.PT CONSENTED TO TRANSFER TO [facility], PENDING ACCEPTANCE AND BED PLACEMENT.
--- NOTE | 2018-06-22 16:13 | NUR ---
SPOKE WITH CRYSTAL AT [facility], DEMOGRAPHIC AND PT INFORMATION GIVEN . FACE SHEET [id number] TO [phone] PER HER REQUEST[address] GIVEN DR. PEDRO NUMBER OF [phone] FOR MD TO MD TELECONFERENCE
--- NOTE | 2018-06-22 16:26 | NUR ---
PT MEDICATED FOR PAIN "10" ON 1-10 SCALE WITH DILAUDID PER ORDER. LR STARTED TO 20G R SHOULDER @100ML/HR ORDERED, PT TOLERATED WELL, NO S/S OF INFILTRATION AT SITE. WILL MONITOR.
--- NOTE | 2018-06-22 16:40 | NUR ---
NOTIFIED [facility] PLACEMENT,[phone]. SPOKE WITH MEG LEFT MESSAGE FOR CRYSTAL TO CALL BACK FOR REPORT THE MD'S WERE ON CONFERENCE FOR BED PLACEMENT.
--- NOTE | 2018-06-22 16:45 | NUR ---
NOTIFIED EMILIA IN RADIOLOGY, CT OF NECK AND THORAX PLACED ON HOLD PENDING TRANSFER STATUS PER LILLIAN GHOSH.
--- NOTE | 2018-06-22 16:50 | NUR ---
ACCUCHECK RESULT 408 CALLED TO LILLIAN GHOSH. 15UNITS NOVOLOG GIVEN PER LILLIAN GHOSH.
--- NOTE | 2018-06-22 17:10 | NUR ---
PER JANES CHAPPELL HOUSE CHARGE HOLD CT TIL TRANSFER TO [facility]. LENORA IN CT NOTIFIED AND UPDATED.
--- NOTE | 2018-06-22 17:10 | NUR ---
FAXED TRANSFER AGREEMENT TO [facility] [phone].
--- NOTE | 2018-06-22 17:42 | NUR ---
CRYSTAL FROM [facility] PLACEMENT CALLED WITH BED ASSIGNMENT, PT TO BE TRANSFERRED TO [facility] ICU BED 07A ON TOWER 5A.
--- NOTE | 2018-06-22 17:45 | NUR ---
REPORT GIVEN TO JANES MARTINEZ AT [facility] ICU [phone].
--- NOTE | 2018-06-22 17:50 | NUR ---
SPOKE WITH CRYSTAL AT TRANSFER CENTER - STATES ACCEPTING PHYSICIAN REQUESTS AIR TRANSFER AT THIS TIME, PT TO GO TO BED ICU 5A-7. AEROMED CONTACTED AND AIR TRANSPORT REQUESTED, STATES CLOSEST AIRCRAFT IS UNAVAILABLE AND SHE WILL CALL ME BACK WITH ETA OF NEXT CLOSEST AVAILABLE AIRCRAFT.
--- NOTE | 2018-06-22 18:00 | NUR ---
NOTIFIED FROM JANES CHAPPELL. HOUSE CHARGE OF AIR TRANSPORT ETA 30MIN, PT UPDATED AND RM ASSIGNMENT GIVEN. PT NOTIFIED FAMILY OF PENDING ETA.
--- NOTE | 2018-06-22 18:17 | NUR ---
PT RESTING IN BED, RESP EVEN/UNLABORED. SA02@98%on 2LPM VIA NC. PT GIVEN CLEAR LIQUIDS ONLY, TOLERATED WELL. AFEBRILE, NO COUGHING NOTED AT THIS TIME. CALL LIGHT IN REACH, WILL MONITOR.
--- NOTE | 2018-06-22 18:33 | NUR ---
REPORT GIVEN TO JANES DAIGLE WITH AIR TRANSPORT.
--- NOTE | 2018-06-22 18:36 | NUR ---
NOTIFIED RT ANTONY FOR STAT DUO NEB.
--- NOTE | 2018-06-22 18:40 | NUR ---
PT LEFT ICU BED 5 VIA STRETCHER WITH AIR TRANSPORT IN STABLE CONDITION.
== END 2018-06-22 18:40 | disposition short-term general hospital (02) ==
LOC: ED 09:56 → ED-I 13:41 → ED 13:47 → ICU 13:48
PROVIDERS: Emergency Medicine; ADMIT Internal Medicine Nephrology; ATTEND Internal Medicine Nephrology
DX: J96.20 Acute and chronic respiratory failure, unspecified whether with hypoxia or hypercapnia (principal); J44.1 Chronic obstructive pulmonary disease with (acute) exacerbation; R07.9 Chest pain, unspecified; R04.2 Hemoptysis; E11.65 Type 2 diabetes mellitus with hyperglycemia; G89.4 Chronic pain syndrome; G40.909 Epilepsy, unspecified, not intractable, without status epilepticus; C85.90 Non-Hodgkin lymphoma, unspecified, unspecified site; E03.9 Hypothyroidism, unspecified; F17.200 Nicotine dependence, unspecified, uncomplicated; I25.10 Atherosclerotic heart disease of native coronary artery without angina pectoris; Z21 Asymptomatic human immunodeficiency virus [HIV] infection status; Z92.21 Personal history of antineoplastic chemotherapy; Z86.74 Personal history of sudden cardiac arrest; Z79.4 Long term (current) use of insulin; Z91.041 Radiographic dye allergy status
CPT/HCPCS: J2060; J3475

== ENCOUNTER 2018-09-14 10:23 | Emergency (ER) | payer MEDICARE ==
[~2018-09-14] VITALS: Ht 167.6 cm; Wt 95.0 kg
[~2018-09-14 10:23] MED LIST changes: +ACCUPRIL5 MG PO; +METHADONE10 M1 PO; +[UNRECOGNIZED DRUG - SUPPLY]
[2018-09-14 11:29] LABS: IMMATURE GRANULOCYTES 0.7 % (0.0-5.0); MEAN CORPUSCULAR HGB 29.4 pG CALC (26.0-32.0); MEAN CORPUSCULAR HGB CONC 32.5 g/L CALC (32.0-36.0); NEUT# 3.82 thou/uL (1.82-7.42); RED BLOOD COUNT 4.05 mill/uL (4.70-6.10); RED CELL DISTRI WIDTH 14.6 % (11.5-15.5)
[2018-09-14 11:40] LABS: ALBUMIN 4.3 g/dL (3.2-5.0); ALKALINE PHOSPHATASE 147 u/l (38-126); ANION GAP 18 (6-22 (CALC)); BILIRUBIN, TOTAL 0.6 mg/dL (0.0-1.4); BUN 14 mg/dL (9-20); BUN/CREATININE RATIO 27 (12-20 (CALC)); CARBON DIOXIDE 21 mmol/l (22-30); CHLORIDE 104 mmol/l (95-108); CREATININE 0.5 mg/dL (0.7-1.3); GFR > 60 ML/MIN (>=60 (CALC)); GFR FOR AFR.AMER. > 60 ML/MIN (>=60 (CALC)); POTASSIUM 4.2 mmol/l (3.5-5.1); SGOT/AST 46 u/l (17-59); SODIUM 138 mmol/l (137-146); TOTAL PROTEIN 7.6 g/dL (6.3-8.2)
[2018-09-14 11:40] LABS: URINE BILIRUBIN - DIPSTICK NEGATIVE (NEGATIVE); URINE BLOOD DIPSTICK NEGATIVE (NEGATIVE); URINE COLOR YELLOW; URINE GLUCOSE - DIPSTICK >=1000 mg/dL (NEGATIVE); URINE KETONE NEGATIVE (NEGATIVE); URINE LEUK ESTERASE NEGATIVE (NEGATIVE); URINE NITRITE - DIPSTICK NEGATIVE (Negative); URINE PH 5.5 (4.5-8.0); URINE PROTEIN - DIPSTICK NEGATIVE (NEG-TRACE); URINE SPECIFIC GRAVITY 1.025
[2018-09-14 11:41] LABS: HEMATOCRIT 36.6 % (39.0-50.0); HEMOGLOBIN 11.9 g/dl (14.0-18.0); MEAN CELL VOLUME 90.4 fL CALC (80.0-100.0)
[2018-09-14] MEDS ORDERED: BACTROBAN TOP (11:57)
[2018-09-14] MEDS ORDERED: DICLOFENAC50 MG PO (11:57)
[2018-09-14] MEDS ORDERED: VALTREX1 GM PO (11:57)
[2018-09-14] MEDS ORDERED: KEFLEX500 M1 PO (11:57)
[2018-09-14 12:14] VITALS: BP 133/85
== END 2018-09-14 12:14 | disposition home or self-care (01) ==
LOC: ED 10:23
PROVIDERS: Emergency Medicine
DX: A60.01 Herpesviral infection of penis (principal); C18.9 Malignant neoplasm of colon, unspecified; C85.90 Non-Hodgkin lymphoma, unspecified, unspecified site; E11.9 Type 2 diabetes mellitus without complications; G40.909 Epilepsy, unspecified, not intractable, without status epilepticus; Z21 Asymptomatic human immunodeficiency virus [HIV] infection status; Z92.21 Personal history of antineoplastic chemotherapy; Z92.3 Personal history of irradiation

== ENCOUNTER 2019-04-08 11:25 | Inpatient (IN) | payer MEDICARE ==
[~2019-04-08] VITALS: Ht 167.6 cm; Wt 88.0 kg
[~2019-04-08 11:25] MED LIST changes: +BACTROBAN TOP; +DICLOFENAC50 MG PO; +KEFLEX500 M1 PO; +VALTREX1 GM PO
[2019-04-08 12:13] LABS: HEMATOCRIT 39.4 % (39.0-50.0); MEAN CELL VOLUME 81.7 fL CALC (80.0-100.0); NEUT# 7.54 thou/uL (1.82-7.42); RED BLOOD COUNT 4.82 mill/uL (4.70-6.10); RED CELL DISTRI WIDTH 13.8 % (11.5-15.5)
[2019-04-08 12:38] LABS: ALBUMIN 4.1 g/dL (3.2-5.0); BILIRUBIN, TOTAL 0.6 mg/dL (0.0-1.4); BUN 15 mg/dL (9-20); BUN/CREATININE RATIO 26 (12-20 (CALC)); CHLORIDE 99 mmol/l (95-108); CREATININE 0.6 mg/dL (0.7-1.3); GFR > 60 ML/MIN (>=60 (CALC)); GFR FOR AFR.AMER. > 60 ML/MIN (>=60 (CALC)); POTASSIUM 3.6 mmol/l (3.5-5.1); SGOT/AST 27 u/l (17-59); SODIUM 137 mmol/l (137-146); TOTAL PROTEIN 7.3 g/dL (6.3-8.2)
[2019-04-08 12:46] LABS: ALKALINE PHOSPHATASE 230 u/l (38-126); ANION GAP 15 (6-22 (CALC)); CARBON DIOXIDE 27 mmol/l (22-30)
[2019-04-08 14:15] VITALS: BP 128/83
[2019-04-08] MEDS ORDERED: HYDROMORPHON8 MG PO (15:44)
[2019-04-08] MEDS ORDERED: METHADONE10 M1 PO (15:45)
[2019-04-08] MEDS ORDERED: METFORMIN1000 MG PO (15:47)
[2019-04-08] MEDS ORDERED: LEVEMIR100 UNIT/M SC (15:50)
[2019-04-08] MEDS ORDERED: LEVOTHYROXIN112 MC1 PO (15:50)
[2019-04-08 18:36] LABS: URINE BILIRUBIN - DIPSTICK NEGATIVE (NEGATIVE); URINE BLOOD DIPSTICK NEGATIVE (NEGATIVE); URINE COLOR YELLOW; URINE GLUCOSE - DIPSTICK NEGATIVE (NEGATIVE); URINE KETONE NEGATIVE (NEGATIVE); URINE LEUK ESTERASE NEGATIVE (NEGATIVE); URINE NITRITE - DIPSTICK NEGATIVE (Negative); URINE PROTEIN - DIPSTICK NEGATIVE (NEG-TRACE); URINE UROBILINOGEN - DIPSTICK >=8.0 E.U./dL (0.2)
[2019-04-08 19:00] VITALS: BP 122/72
[2019-04-09] VITALS (8 sets, daily range): BP systolic 93–145; BP diastolic 53–83
[2019-04-09] MEDS ORDERED: KEPPRA500 M2 PO (00:16)
[2019-04-09 03:47] LABS: HEMATOCRIT 36.2 % (39.0-50.0); IMMATURE GRANULOCYTES 0.8 % (0.0-5.0); MEAN CELL VOLUME 83.8 fL CALC (80.0-100.0); MEAN CORPUSCULAR HGB 27.8 pG CALC (26.0-32.0); MEAN CORPUSCULAR HGB CONC 33.1 g/L CALC (32.0-36.0); NEUT# 10.83 thou/uL (1.82-7.42); RED BLOOD COUNT 4.32 mill/uL (4.70-6.10); RED CELL DISTRI WIDTH 13.8 % (11.5-15.5)
[2019-04-09 03:49] LABS: CHOLESTEROL HDL RATIO 4.5 (<4.4 (CALC))
[2019-04-09 03:51] LABS: ALBUMIN 3.8 g/dL (3.2-5.0); ALKALINE PHOSPHATASE 196 u/l (38-126); ANION GAP 16 (6-22 (CALC)); BILIRUBIN, TOTAL 0.5 mg/dL (0.0-1.4); BUN 11 mg/dL (9-20); BUN/CREATININE RATIO 22 (12-20 (CALC)); CARBON DIOXIDE 24 mmol/l (22-30); CHLORIDE 100 mmol/l (95-108); CREATININE 0.5 mg/dL (0.7-1.3); GFR > 60 ML/MIN (>=60 (CALC)); GFR FOR AFR.AMER. > 60 ML/MIN (>=60 (CALC)); MAGNESIUM 1.1 mg/dL (1.6-2.3); POTASSIUM 3.8 mmol/l (3.5-5.1); SGOT/AST 28 u/l (17-59); SODIUM 136 mmol/l (137-146); TOTAL PROTEIN 6.7 g/dL (6.3-8.2)
[2019-04-10] VITALS (20 sets, daily range): BP systolic 99–171; BP diastolic 64–82
[2019-04-10 01:08] LABS: HEMOGLOBIN 10.9 g/dl (14.0-18.0)
[2019-04-10 06:01] LABS: HEMATOCRIT 32.1 % (39.0-50.0); HEMOGLOBIN 10.5 g/dl (14.0-18.0); MEAN CELL VOLUME 83.4 fL CALC (80.0-100.0); MEAN CORPUSCULAR HGB 27.3 pG CALC (26.0-32.0); MEAN CORPUSCULAR HGB CONC 32.7 g/L CALC (32.0-36.0); RED BLOOD COUNT 3.85 mill/uL (4.70-6.10); RED CELL DISTRI WIDTH 13.9 % (11.5-15.5)
[2019-04-10 06:31] LABS: ANION GAP 10 (6-22 (CALC)); BUN 8 mg/dL (9-20); BUN/CREATININE RATIO 16 (12-20 (CALC)); CARBON DIOXIDE 28 mmol/l (22-30); CHLORIDE 103 mmol/l (95-108); CREATININE 0.5 mg/dL (0.7-1.3); GFR > 60 ML/MIN (>=60 (CALC)); GFR FOR AFR.AMER. > 60 ML/MIN (>=60 (CALC)); POTASSIUM 4.4 mmol/l (3.5-5.1); SODIUM 136 mmol/l (137-146)
[2019-04-11] VITALS (7 sets, daily range): BP systolic 97–145; BP diastolic 55–79
[2019-04-11 06:08] LABS: HEMATOCRIT 32.6 % (39.0-50.0); HEMOGLOBIN 10.7 g/dl (14.0-18.0); MEAN CELL VOLUME 82.7 fL CALC (80.0-100.0); MEAN CORPUSCULAR HGB 27.2 pG CALC (26.0-32.0); MEAN CORPUSCULAR HGB CONC 32.8 g/L CALC (32.0-36.0); RED BLOOD COUNT 3.94 mill/uL (4.70-6.10); RED CELL DISTRI WIDTH 14.1 % (11.5-15.5)
[2019-04-12 00:34] VITALS: BP 106/64
[2019-04-12 05:11] VITALS: BP 123/65
[2019-04-12 08:00] VITALS: BP 120/72
[2019-04-12 15:15] VITALS: BP 126/72
[2019-04-12 16:32] LABS: HEMATOCRIT 32.8 % (39.0-50.0); HEMOGLOBIN 10.9 g/dl (14.0-18.0); MEAN CELL VOLUME 82.4 fL CALC (80.0-100.0); MEAN CORPUSCULAR HGB 27.4 pG CALC (26.0-32.0); MEAN CORPUSCULAR HGB CONC 33.2 g/L CALC (32.0-36.0); RED BLOOD COUNT 3.98 mill/uL (4.70-6.10); RED CELL DISTRI WIDTH 13.8 % (11.5-15.5)
[2019-04-12 19:12] VITALS: BP 117/64
[2019-04-13 00:02] VITALS: BP 110/75
[2019-04-13 04:10] VITALS: BP 97/56
[2019-04-13 05:50] LABS: HEMATOCRIT 33.1 % (39.0-50.0); HEMOGLOBIN 10.8 g/dl (14.0-18.0); MEAN CELL VOLUME 84.2 fL CALC (80.0-100.0); MEAN CORPUSCULAR HGB 27.5 pG CALC (26.0-32.0); MEAN CORPUSCULAR HGB CONC 32.6 g/L CALC (32.0-36.0); RED BLOOD COUNT 3.93 mill/uL (4.70-6.10); RED CELL DISTRI WIDTH 13.9 % (11.5-15.5)
[2019-04-13 11:25] VITALS: BP 138/83
[2019-04-13 16:00] VITALS: BP 123/74
== END 2019-04-13 19:12 | disposition short-term general hospital (02) | DRG 872 ==
LOC: ED 11:25 → ED-I 12:47 → ED 13:06 → MS2 13:07 → ICU 04-10 01:28 → MS2 04-11 08:12
PROVIDERS: Emergency Medicine; Family Medicine; Internal Medicine; Nurse Practitioner Family; ADMIT Internal Medicine; ATTEND Internal Medicine
PROC: 02HV33Z Insertion of Infusion Device into Superior Vena Cava, Percutaneous Approach (ICD-10-PCS; principal; 2019-04-08)
PROC: 0DJ08ZZ Inspection of Upper Intestinal Tract, Via Natural or Artificial Opening Endoscopic (ICD-10-PCS; 2019-04-10)
DX: R78.81 Bacteremia (principal); C21.0 Malignant neoplasm of anus, unspecified; C79.9 Secondary malignant neoplasm of unspecified site; K92.0 Hematemesis; T82.534A Leakage of infusion catheter, initial encounter; I10 Essential (primary) hypertension; G40.909 Epilepsy, unspecified, not intractable, without status epilepticus; E03.9 Hypothyroidism, unspecified; I25.10 Atherosclerotic heart disease of native coronary artery without angina pectoris; D33.3 Benign neoplasm of cranial nerves; G89.4 Chronic pain syndrome; I25.2 Old myocardial infarction; K44.9 Diaphragmatic hernia without obstruction or gangrene; Y83.8 Other surgical procedures as the cause of abnormal reaction of the patient, or of later complication, without mention of misadventure at the time of the procedure; E11.65 Type 2 diabetes mellitus with hyperglycemia; T38.3X6A Underdosing of insulin and oral hypoglycemic [antidiabetic] drugs, initial encounter; B95.4 Other streptococcus as the cause of diseases classified elsewhere; F17.200 Nicotine dependence, unspecified, uncomplicated; Z79.899 Other long term (current) drug therapy; Z91.128 Patient's intentional underdosing of medication regimen for other reason; Z21 Asymptomatic human immunodeficiency virus [HIV] infection status; Z79.4 Long term (current) use of insulin; Z79.891 Long term (current) use of opiate analgesic; Z85.72 Personal history of non-Hodgkin lymphomas
CPT/HCPCS: J1953; J2060; J3370; S0164

== ENCOUNTER 2019-08-19 19:34 | Inpatient (IN) | payer MEDICARE ==
[~2019-08-19] VITALS: Ht 172.7 cm; Wt 86.2 kg
[~2019-08-19 19:34] MED LIST changes: +KEPPRA500 M2 PO; +LEVOTHYROXIN112 MC1 PO; +METFORMIN1000 MG PO
[2019-08-19 21:18] LABS: HEMATOCRIT 33.7 % (39.0-50.0); HEMOGLOBIN 10.7 g/dl (14.0-18.0); IMMATURE GRANULOCYTES 0.6 % (0.0-5.0); MEAN CELL VOLUME 85.1 fL CALC (80.0-100.0); MEAN CORPUSCULAR HGB CONC 31.8 g/L CALC (32.0-36.0); NEUT# 9.75 thou/uL (1.82-7.42); RED BLOOD COUNT 3.96 mill/uL (4.70-6.10); RED CELL DISTRI WIDTH 14.6 % (11.5-15.5)
[2019-08-19 22:01] LABS: ALKALINE PHOSPHATASE 165 u/l (38-126); BILIRUBIN, TOTAL 0.3 mg/dL (0.0-1.4); BUN 13 mg/dL (9-20); BUN/CREATININE RATIO 25 (12-20 (CALC)); CHLORIDE 107 mmol/l (95-108); CREATININE 0.5 mg/dL (0.7-1.3); GFR > 60 ML/MIN (>=60 (CALC)); GFR FOR AFR.AMER. > 60 ML/MIN (>=60 (CALC)); POTASSIUM 3.9 mmol/l (3.5-5.1); SGOT/AST 25 u/l (17-59); SODIUM 140 mmol/l (137-146); TOTAL PROTEIN 7.6 g/dL (6.3-8.2)
[2019-08-19 22:03] LABS: ANION GAP 18 (6-22 (CALC)); CARBON DIOXIDE 19 mmol/l (22-30)
[2019-08-19 22:13] LABS: MYOGLOBIN 44 ng/mL (0 - 121)
[2019-08-20 01:02] VITALS: BP 155/92
[2019-08-20 04:15] VITALS: BP 169/70
[2019-08-20 07:58] VITALS: BP 123/72
[2019-08-20 10:51] VITALS: BP 112/63
[2019-08-20 10:51] LABS: HEMOGLOBIN 9.5 g/dl (14.0-18.0); IMMATURE GRANULOCYTES 0.5 % (0.0-5.0); MEAN CELL VOLUME 84.3 fL CALC (80.0-100.0); MEAN CORPUSCULAR HGB 26.7 pG CALC (26.0-32.0); MEAN CORPUSCULAR HGB CONC 31.7 g/L CALC (32.0-36.0); NEUT# 6.42 thou/uL (1.82-7.42); RED BLOOD COUNT 3.56 mill/uL (4.70-6.10); RED CELL DISTRI WIDTH 14.6 % (11.5-15.5)
[2019-08-20 17:02] VITALS: BP 125/64
[2019-08-20 19:29] VITALS: BP 150/82
[2019-08-21] VITALS (7 sets, daily range): BP systolic 117–171; BP diastolic 69–93
[2019-08-21 05:21] LABS: HEMATOCRIT 33.4 % (39.0-50.0); HEMOGLOBIN 10.4 g/dl (14.0-18.0); IMMATURE GRANULOCYTES 0.6 % (0.0-5.0); MEAN CELL VOLUME 86.1 fL CALC (80.0-100.0); MEAN CORPUSCULAR HGB 26.8 pG CALC (26.0-32.0); MEAN CORPUSCULAR HGB CONC 31.1 g/L CALC (32.0-36.0); NEUT# 6.4 thou/uL (1.82-7.42); RED BLOOD COUNT 3.88 mill/uL (4.70-6.10); RED CELL DISTRI WIDTH 14.6 % (11.5-15.5)
[2019-08-21 05:37] LABS: ANION GAP 14 (6-22 (CALC)); BUN 16 mg/dL (9-20); BUN/CREATININE RATIO 40 (12-20 (CALC)); CHLORIDE 104 mmol/l (95-108); CREATININE 0.4 mg/dL (0.7-1.3); GFR > 60 ML/MIN (>=60 (CALC)); GFR FOR AFR.AMER. > 60 ML/MIN (>=60 (CALC)); POTASSIUM 3.8 mmol/l (3.5-5.1); SODIUM 139 mmol/l (137-146)
[2019-08-21 05:53] LABS: CARBON DIOXIDE 25 mmol/l (22-30)
[2019-08-22] VITALS: BP 135/67
[2019-08-22 04:00] VITALS: BP 156/76
[2019-08-22 06:15] LABS: HEMATOCRIT 33.8 % (39.0-50.0); HEMOGLOBIN 10.7 g/dl (14.0-18.0); IMMATURE GRANULOCYTES 0.6 % (0.0-5.0); MEAN CELL VOLUME 85.6 fL CALC (80.0-100.0); MEAN CORPUSCULAR HGB 27.1 pG CALC (26.0-32.0); MEAN CORPUSCULAR HGB CONC 31.7 g/L CALC (32.0-36.0); NEUT# 4.94 thou/uL (1.82-7.42); RED BLOOD COUNT 3.95 mill/uL (4.70-6.10); RED CELL DISTRI WIDTH 13.9 % (11.5-15.5)
[2019-08-22 06:25] LABS: ANION GAP 12 (6-22 (CALC)); BUN 11 mg/dL (9-20); BUN/CREATININE RATIO 26 (12-20 (CALC)); CARBON DIOXIDE 27 mmol/l (22-30); CHLORIDE 101 mmol/l (95-108); CREATININE 0.4 mg/dL (0.7-1.3); GFR > 60 ML/MIN (>=60 (CALC)); GFR FOR AFR.AMER. > 60 ML/MIN (>=60 (CALC)); MAGNESIUM 1.6 mg/dL (1.6-2.3); POTASSIUM 3.7 mmol/l (3.5-5.1); SODIUM 136 mmol/l (137-146)
[2019-08-22 08:15] VITALS: BP 134/79
[2019-08-22 16:05] VITALS: BP 146/80
[2019-08-22 19:30] VITALS: BP 145/64
[2019-08-23 00:13] VITALS: BP 168/85
[2019-08-23 04:35] VITALS: BP 143/76
[2019-08-23 05:45] LABS: HEMATOCRIT 30.9 % (39.0-50.0); HEMOGLOBIN 9.6 g/dl (14.0-18.0); IMMATURE GRANULOCYTES 0.6 % (0.0-5.0); MEAN CELL VOLUME 87.3 fL CALC (80.0-100.0); MEAN CORPUSCULAR HGB 27.1 pG CALC (26.0-32.0); MEAN CORPUSCULAR HGB CONC 31.1 g/L CALC (32.0-36.0); NEUT# 4.18 thou/uL (1.82-7.42); RED BLOOD COUNT 3.54 mill/uL (4.70-6.10); RED CELL DISTRI WIDTH 14.4 % (11.5-15.5)
[2019-08-23 06:23] LABS: ANION GAP 11 (6-22 (CALC)); BUN 10 mg/dL (9-20); BUN/CREATININE RATIO 23 (12-20 (CALC)); CARBON DIOXIDE 27 mmol/l (22-30); CHLORIDE 105 mmol/l (95-108); CREATININE 0.5 mg/dL (0.7-1.3); GFR > 60 ML/MIN (>=60 (CALC)); GFR FOR AFR.AMER. > 60 ML/MIN (>=60 (CALC)); MAGNESIUM 1.7 mg/dL (1.6-2.3); POTASSIUM 3.4 mmol/l (3.5-5.1); SODIUM 140 mmol/l (137-146)
[2019-08-23 08:25] VITALS: BP 143/68
[2019-08-23 15:18] VITALS: BP 145/76
[2019-08-23 20:28] VITALS: BP 132/71
[2019-08-23 23:44] VITALS: BP 153/73
[2019-08-24 03:45] VITALS: BP 152/77
[2019-08-24 06:27] LABS: HEMATOCRIT 29.3 % (39.0-50.0); HEMOGLOBIN 9.5 g/dl (14.0-18.0); MEAN CELL VOLUME 83.5 fL CALC (80.0-100.0); MEAN CORPUSCULAR HGB 27.1 pG CALC (26.0-32.0); MEAN CORPUSCULAR HGB CONC 32.4 g/L CALC (32.0-36.0); RED BLOOD COUNT 3.51 mill/uL (4.70-6.10); RED CELL DISTRI WIDTH 13.9 % (11.5-15.5)
[2019-08-24 06:52] LABS: ANION GAP 11 (6-22 (CALC)); BUN 11 mg/dL (9-20); BUN/CREATININE RATIO 23 (12-20 (CALC)); CARBON DIOXIDE 26 mmol/l (22-30); CHLORIDE 105 mmol/l (95-108); CREATININE 0.5 mg/dL (0.7-1.3); GFR > 60 ML/MIN (>=60 (CALC)); GFR FOR AFR.AMER. > 60 ML/MIN (>=60 (CALC)); MAGNESIUM 1.5 mg/dL (1.6-2.3); SODIUM 138 mmol/l (137-146)
[2019-08-24 08:13] VITALS: BP 161/89
[2019-08-24 11:15] VITALS: BP 124/62
[2019-08-24 15:10] VITALS: BP 161/86
[2019-08-24 16:53] VITALS: BP 153/69
[2019-08-24] MEDS ORDERED: AUGMENTIN500TAB PO (17:30)
== END 2019-08-24 18:44 | disposition home or self-care (01) | DRG 158 ==
LOC: ED 19:34 → ED-I 20:56 → ED 22:53 → MS2 22:54
PROVIDERS: Emergency Medicine; Nurse Practitioner Family; ADMIT Internal Medicine; ATTEND Internal Medicine
DX: K04.7 Periapical abscess without sinus (principal); C81.90 Hodgkin lymphoma, unspecified, unspecified site; L03.211 Cellulitis of face; R07.9 Chest pain, unspecified; K02.9 Dental caries, unspecified; I10 Essential (primary) hypertension; E11.649 Type 2 diabetes mellitus with hypoglycemia without coma; G40.909 Epilepsy, unspecified, not intractable, without status epilepticus; J44.9 Chronic obstructive pulmonary disease, unspecified; E03.9 Hypothyroidism, unspecified; I25.10 Atherosclerotic heart disease of native coronary artery without angina pectoris; F17.200 Nicotine dependence, unspecified, uncomplicated; G89.29 Other chronic pain; Z21 Asymptomatic human immunodeficiency virus [HIV] infection status; Z86.74 Personal history of sudden cardiac arrest; Z85.46 Personal history of malignant neoplasm of prostate; Z79.891 Long term (current) use of opiate analgesic; Z92.21 Personal history of antineoplastic chemotherapy; Z79.4 Long term (current) use of insulin; Z92.3 Personal history of irradiation
CPT/HCPCS: G0378; J1650; J1953; J3370; J3475

== ENCOUNTER 2020-10-16 23:08 | Observation (INO) | payer MEDICARE ==
[~2020-10-16] VITALS: Ht 172.7 cm; Wt 90.0 kg
[~2020-10-16 23:08] MED LIST changes: +AUGMENTIN500TAB PO
--- NOTE | 2020-10-16 23:08 | NUR ---
PT TO ROOM # 15 FOR BEDSIDE TRIAGE.
--- NOTE | 2020-10-16 23:30 | NUR ---
PT REQUESTING SOCKS AND URINAL. PT CONTINUES TO HYPERVENTILATE, BREATHING TECHNIQUES DEMOSTRATED. PT STATES " IT HURTS MY CHEST TO BREATHE, IM HAVING PAIN EVERYTIME I TAKE A DEEP BREATH." ENCOURAGED SLOW DEEP BREATHS WITH PT-- SPO2 ON RA 99%.
[2020-10-17] VITALS (13 sets, daily range): BP systolic 101–142; BP diastolic 51–78
[2020-10-17 00:19] LABS: HEMATOCRIT 39.5 % (39.0-50.0); HEMOGLOBIN 12.7 g/dl (14.0-18.0); IMMATURE GRANULOCYTES 2.1 % (0.0-5.0); MEAN CORPUSCULAR HGB 24.8 pG CALC (26.0-32.0); MEAN CORPUSCULAR HGB CONC 32.2 g/dL CAL (32.0-36.0); NEUT# 16.76 thou/uL (1.82-7.42); RED BLOOD COUNT 5.12 mill/uL (4.70-6.10)
[2020-10-17 00:20] LABS: MEAN CELL VOLUME 77.1 fL CALC (80.0-100.0)
[2020-10-17 00:32] LABS: PROTHROMBIN TIME 10.1 SECONDS (9.0-12.5)
--- NOTE | 2020-10-17 00:35 | NUR ---
PT REQESTING URINAL. APPX 350 CC OF URINE PRODUCED. PT REPORTS CONT CHEST PAIN. MEDICATED WITH ASA, NTG PAST AND MORPHINE PER ORDER. PT TOLERATED ADMINISTRATION WELL. INSTRUCTED PT ON IMPORTANCE IN REMAINING IN BED AND TO CALL FOR ASSISTANCE. PT BED REMAINS IN HIGH FOWLERS POSITION. BISQUE WARE DIPPER IN PLACE. SPO2 @ 99% RA.
[2020-10-17 00:36] LABS: ALBUMIN 4.5 g/dL (3.2-5.0); ALKALINE PHOSPHATASE 188 u/l (38-126); AMYLASE 106 u/l (30-110); BILIRUBIN, TOTAL 0.4 mg/dL (0.0-1.4); BUN 23 mg/dL (9-20); BUN/CREATININE RATIO 26 (12-20 (CALC)); CHLORIDE 92 mmol/l (95-108); CREATININE 0.9 mg/dL (0.7-1.3); GFR > 60 ML/MIN (>=60 (CALC)); GFR FOR AFR.AMER. > 60 ML/MIN (>=60 (CALC)); LIPASE 99 u/l (23-300); POTASSIUM 4.5 mmol/l (3.5-5.1); SGOT/AST 24 u/l (17-59); SODIUM 129 mmol/l (137-146); TOTAL PROTEIN 8.7 g/dL (6.3-8.2)
[2020-10-17 00:38] LABS: ANION GAP 21 (6-22 (CALC)); CARBON DIOXIDE 21 mmol/l (22-30)
--- NOTE | 2020-10-17 01:00 | NUR ---
PT MEDICATED PER ORDER. PT REPORTS CHEST PAIN 06/19. TOLERATED ADMINISTRATION WELL. ADVISED OF CONT WAIT TIME FOR RESULTS. VERBALIZED UNDERSTANDING. DENIES ANY NEEDS.
[2020-10-17 01:22] LABS: URINE BILIRUBIN - DIPSTICK NEGATIVE (NEGATIVE); URINE BLOOD DIPSTICK LARGE (NEGATIVE); URINE COLOR YELLOW; URINE GLUCOSE - DIPSTICK >=1000 mg/dL (NEGATIVE); URINE KETONE NEGATIVE (NEGATIVE); URINE NITRITE - DIPSTICK NEGATIVE (Negative); URINE PROTEIN - DIPSTICK NEGATIVE (NEG-TRACE); URINE SPECIFIC GRAVITY <=1.005; URINE UROBILINOGEN - DIPSTICK 0.2 E.U./dL (0.2)
[2020-10-17 01:53] LABS: URINE BACTERIA FEW hpf; URINE EPITHELIAL CELLS FEW EPI/hpf (0-FEW); URINE LEUK ESTERASE NEGATIVE (NEGATIVE); URINE RBC >100 RBC/hpf (0-5)
--- NOTE | 2020-10-17 02:00 | NUR ---
REPEAT GLUCOSE LEVEL SHOWING CRITICALLY HIGH. PT STATES " I NEED MORE IV FLUIDS, IM SO DEHYDRATED I HAVENT EATEN REALLY MUCH IN [address] BETHEA INFORMED OF ACCUCHECK-- ORDERS RECEIVED.
--- NOTE | 2020-10-17 02:10 | NUR ---
REPEAT GLUCOSE BLOOD LEVEL DRAWN AND SENT TO LAB FOR ANALYSIS. BLOOD CULTURES OBTAINED PER ORDER. PT TOLERATED WELL.
--- NOTE | 2020-10-17 02:40 | NUR ---
IV ROCEPHIN INTIATED PER ORDER. FUENTES RN IN ROOM FOR IV ATTEMPT
--- NOTE | 2020-10-17 03:00 | NUR ---
UNABLE TO OBTAIN SECOND IV SITE. DR BETHEA NOTIFIED. ORDER TO HOLD INSULIN DRIP AND ADMINISTER 10 UNITS IV THEN TO GIVE SECOND ANTIBIOTIC.
--- NOTE | 2020-10-17 03:35 | NUR ---
REPORT CALLED TO ALBINO MARRERO./
--- NOTE | 2020-10-17 03:40 | NUR ---
PT REPORTS HE TAKES HYDROMORPHONE 4 TIMES A DAY FOR HIS PAIN FROM CANCER AND HIS BACK.
--- NOTE | 2020-10-17 03:50 | NUR ---
Admission Note Report Given to: JANES POSADA Transported by: Wheelchair X Stretcher Transported with: X Nurse Transporter X Patent IV O2 X Clothes Ironer Location: X ICU MS2 PT TRANSPORTED TO ICU RM # 1, ALBINO RN BEDSIDE WITH PT.
[2020-10-17] MEDS ORDERED: LANTUS100 UNIT/M SC (03:52)
[2020-10-17] MEDS ORDERED: GABAPENTIN100 MG PO (03:54)
[2020-10-17] MEDS ORDERED: PREZISTA600 MG PO (03:54)
[2020-10-17] MEDS ORDERED: TRUVADA1 TA1 PO (03:55)
[2020-10-17] MEDS ORDERED: OMEPRAZOLE20 M1 PO (03:56)
[2020-10-17] MEDS ORDERED: LOPRESSOR25 MG PO (03:57)
[2020-10-17] MEDS ORDERED: BUPROPION150 M3 PO (03:58)
[2020-10-17] MEDS ORDERED: CRESTOR5 MG PO (03:58)
[2020-10-17] MEDS ORDERED: LISINOPRIL10 MG PO (03:58)
[2020-10-17] MEDS ORDERED: PHENAZO200 MG PO (03:59)
[2020-10-17] MEDS ORDERED: ELIQUIS5 MG PO (04:01)
[2020-10-17] MEDS ORDERED: NOVOLOG100 UNIT/M SC (04:03)
[2020-10-17] MEDS ORDERED: TRIAMCINOLON0.0253 EX (04:03)
--- NOTE | 2020-10-17 04:25 | NUR ---
RECEIVED INTO ICU BED 1 FROM ER VIA STRETCHER. PATIENT AMBULATED WITH STABLE STANCE AND GAIT FROM STRETCHER TO BED. PLACED ON DIGITAL WATCH ASSEMBLER SHOWING SR. PATIENT TAKING SHALLOW, RAPID BREATHS. O2 SAT ON RA 99-100% PATIENT IS VERY ANXIOUS. ATTEMPTS TO CALM WITH VERBAL CUES. PATIENT REPEATEDLY OVERTALKS SPEAKER. PATIENT STATES HE HAS HAD CHEST PAIN AND SOB FOR PAST WEEK. LUNGS CLEAR. NO PERIPHERAL EDEMA, PULSES PALPABLE. NS WITH 20 KCL STARTED TO BRISSA IV SITE AT 125 ML/HR. IV SITE BENIGN. EXPLAINED PLAN OF CARE. CALL HILL IN REACH.
--- NOTE | 2020-10-17 05:00 | NUR ---
PATIENT C/O SOB, ALTHOUGH O2 SAT 98-100% ON RA.
--- NOTE | 2020-10-17 06:15 | NUR ---
ACCU CHECK 258. PATIENT C/O PAIN, GRUNTING AND GROANING. VSS. MEDICATED FOR C/O PAIN WITH MORPHINE ORDERED.
[2020-10-17 07:26] LABS: HEMATOCRIT 35.5 % (39.0-50.0); HEMOGLOBIN 11.4 g/dl (14.0-18.0); IMMATURE GRANULOCYTES 2.6 % (0.0-5.0); MEAN CELL VOLUME 78.2 fL CALC (80.0-100.0); MEAN CORPUSCULAR HGB 25.1 pG CALC (26.0-32.0); MEAN CORPUSCULAR HGB CONC 32.1 g/dL CAL (32.0-36.0); NEUT# 12.17 thou/uL (1.82-7.42); RED BLOOD COUNT 4.54 mill/uL (4.70-6.10); RED CELL DISTRI WIDTH 14.2 % (11.5-15.5)
[2020-10-17 07:31] LABS: ALBUMIN 3.6 g/dL (3.2-5.0); ALKALINE PHOSPHATASE 129 u/l (38-126); ANION GAP 15 (6-22 (CALC)); BILIRUBIN, TOTAL 0.4 mg/dL (0.0-1.4); BUN 22 mg/dL (9-20); BUN/CREATININE RATIO 39 (12-20 (CALC)); CARBON DIOXIDE 20 mmol/l (22-30); CHLORIDE 105 mmol/l (95-108); CREATININE 0.6 mg/dL (0.7-1.3); GFR > 60 ML/MIN (>=60 (CALC)); GFR FOR AFR.AMER. > 60 ML/MIN (>=60 (CALC)); POTASSIUM 4.5 mmol/l (3.5-5.1); SGOT/AST 17 u/l (17-59); SODIUM 135 mmol/l (137-146); TOTAL PROTEIN 6.9 g/dL (6.3-8.2)
--- NOTE | 2020-10-17 08:25 | NUR ---
PT SEEN AWAKE, ALERT, ORIENTED X 3. LUNGS CLEAR WITH SLIGHT WHEEZE HEARD, PLACED ON 2 LPM NC PER SATS IN THE UPPER 80s, NOW 96%. PT APPEARS TO BE LABORING SOMEWHAT WITH RESPIRATIONS, TO ADDRESS WITH DR PELLETIER. ABDOMEN SOFT, DISTENDED, STATES NO BM FOR 4 DAYS BUT NUTRITIONAL SERVICES DIRECTOR DOCUMENTED BM YESTERDAY. PT STATES PAIN MEDICINE DID HELP SOME.
--- NOTE | 2020-10-17 10:22 | NUR ---
PT CONTINUES WITH ANXIETY, ENCOURAGED TO SLOW DOWN BREATHING AND RELAX. PT'S SON OLIVER WAS CALLED, WILL BRING IN METHADONE AND TRUVADA WHEN HE CAN. PT DID HAVE BM ON BSC, SEEN TO HAVE STREAKS OF BLOOD ON STOOL.
--- NOTE | 2020-10-17 12:36 | NUR ---
PT HAS BEEN TO CTA AND BACK, DID WELL DURING EXAM. PT'S FAMILY BROUGHT IN TWO MEDS THAT WERE YEARS AGO. PT CALLED FAMILY TO HAVE THEM BRING IN NON- ONES. DR PELLETIER HAS BEEN IN TO SEE PT, DURING WHICH TIME PT BECAME VERY ANIMATED ABOUT BEING SHORT OF BREATH, WORKING HIMSELF INTO A COUGH SPELL. HE DID COUGH UP BLOOD, NOT UNEXPECTED WITH LOUD RETCHING.
--- NOTE | 2020-10-17 18:26 | NUR ---
PT HAS HAD UNEVENTFUL AFTERNOON. HE DOES CALL FOR SOMETHING TO DRINK OR EAT AT TIMES. NO FURTHER EPISODES OF CHEST PAIN AND EXTREME ANXIETY.
--- NOTE | 2020-10-17 19:33 | NUR ---
RECEIEVED REPORT FOR THIS PT FROM SHANKAR. PT SITTING UP MAT BEDSIDE WITH NO CONCERNS NOTED. RESPIRATION ARE EVEN AND NON LABORED. CALL LIGHT WITHIN REACH. WILL CONTINUE TO OBSERVE
--- NOTE | 2020-10-17 20:43 | NUR ---
PT IN BED WITH EYES OPEN AND ABLE TO MAKE NEEDS KNOWN. AMBUALTES IN ROOM WITH NO ASSIST NEEDED. WAS MEDICATED WITH MORPHINE 2MG IV FOR SUBSTERNAL PAIN AND NOT SHORT TERM EFFECTIVENESS PER PT. NO S/SOF HYPER/HYPOGLYCEMIA. NO SKIN CONCERNS NOTED. PT ON TELEMETRY HR 72 BPM AND SINUS RHYTHM NOTED. BEDTIME SNACK GIVEN. O2 AT 3LNC WITH O2 SAT 98%. PT NOTD HOLDINH HIS BREATH AT TIMES AND OXYGEN LEVEL DECREASING. PT EDUCATED ON NOT HOLDING HIS BREATH AND TAKING SLOW DEEP BREATHS TO FACILITATE NORMAL BREATHING AND PT STATED HE UNDERSTOOD. CALL LIGHT WITHIN REACH. WILL CONTINUE TO OBSERVE
--- NOTE | 2020-10-17 21:18 | NUR ---
PT BLOOD SUGAR 422. STAT GLUCOSE ORDERED PER THE ORDER. DR. PELELTIER WAS NOTIFIED AND SSC GIVEN ORDERED. PT HAD EATEN 2 PACKS OF JULIO CRACKERS PRIOR TO ACCUCHECK.
[2020-10-18] VITALS (9 sets, daily range): BP systolic 97–155; BP diastolic 56–83
--- NOTE | 2020-10-18 00:15 | NUR ---
PT IN BED WITH EYES CLOSED. NO S/S OF DISTRESS/DISCOMFORT. RESPIRATION ARE EVEN AND NON LABORED. CALL LIGTH IS WITHIN REACH. WILL CONTINUE TO OBSERVE
--- NOTE | 2020-10-18 02:30 | NUR ---
PT IN BED WITH EYES CLOSED. NO S/S OF DISTRESS NOTED. RESPIRATIONS ARE EVEN AND NONLABORED. NON PRODUCTIVE COUGH NOTED. CALL LIGT IS WITHIN REACH AND BED IN LOWEST POSITION. WILL CONTINUE TO OBSERVE
--- NOTE | 2020-10-18 05:30 | NUR ---
PT SITTING UP IN BED WITH EYES OPEN AND ABLE TO MAKE NEEDS KNOWN. MEDICATED FOR PAIN. PT RECEIVED 8MG DILAUDID. WHILE ADMISTERING MEDICATION 2MG OF DILAUDID DROPPED TO FLOOR. MEDICATION REPULLED AND PT RECEIVED PRESCRIBED DOSAGE. BED LINENS CHANGED. PT IS CONTINENT OF B/B AND USES URIANAL WITH NO COMPLICATIONS NOTED. WILL CONTINUE TO OBSERVE
--- NOTE | 2020-10-18 06:48 | NUR ---
PT IN BED WITH EYES CLOSED. NO S/S OF DISTRESS. PAIN MEDICATIONS WAS EFFECTIVE. NO RESPIRATORY DISTRESS NOTED. CALL LIGHT WITHIN REACH. WILL CONTINUE TO OBSERVE.
--- NOTE | 2020-10-18 06:55 | NUR ---
PATIENT IS AWAKE, DROWSY, ORIENTED TO NAME, PLACE, AND CURRENT YEAR, IS LAYING IN HIGH DAVIDSON'S. BREATHES HEAVILY, SOUNDS WHEEZY, WAS INSTRUCTED TO SLOW DOWN BREATHING, PATIENT BECOMES AGITATED, STATES, "THIS HOW I BREATHE SOMETIMES , HOW YOU WANT ME TO BREATHE!" REPORTS HE HAS A BRAIN TUMOR AND CAN BE FORGETFULL AT TIMES. NURSE ASSESSMENT PERFORMED, SEE PROCESS INTERVENTIONS. SPARKLE IV INTACT, RETURNS BLOOD, NS WITH 20 MEW OF POTASSIUM INFUSING AT 10 ML/HR. WAS ON 2.5 L/MIN NC, WEANED TO 2 L/MIN NC, O2 SATS GREATER THAN 95%. CHANGED PULSE OX ON FINGER DUE TO PATIENT PULLING IT OFF AND READINGS NOT ACCURATE. SR ON TELEMETRY, BP WNL. USES URINAL AND SELF REPOSITIONS. ACCUCHECK WILL BE OBTAINED. SUPERVISOR TELLERS DRY COUGH NOTED. LUBNA HOSE IN PLACE. CALL LIGHT WITHIN REACH.
--- NOTE | 2020-10-18 07:16 | NUR ---
NEW PULSE OX PLACED ON LEFT HAND DUE TO PATIENT PULLING OFF THE ONE ON HIS RIGHT INDEX FINGER AND O2 SAT READINGS INACCURATE. PATIENT BECOMES AGITATED AND STARTS RAISING HIS VOICE, STATES, "STOP YELLING AT ME, YOU MAKING ME AGITATED, YOU WANT ME TO JUST LAY STILL." HE STARTS TO BREATHE HEAVILY, O2 SATS READ 100%, BP WNL, SR ON TELE WITH HR 70'S. EXPLAINED IT IS IMPORT ANT TO NOT PULL OF ANY EQUIPMENT BECAUSE HE IS IN THE INTENSIVE CARE AND WE ARE CLOSELY MONITORING.
--- NOTE | 2020-10-18 07:34 | NUR ---
SHIPPING CLERK IN ROOM TO DRAW AM LABS, BREAKFAST TRAY PROVIDED AT BEDSIDE, AND 10 UNITS IF HIGH DOSE SLIDING SCALE GIVEN, PATIENT TOLERATES WELL.
[2020-10-18 08:23] LABS: HEMOGLOBIN 11.3 g/dl (14.0-18.0); IMMATURE GRANULOCYTES 2.9 % (0.0-5.0); MEAN CELL VOLUME 78.6 fL CALC (80.0-100.0); MEAN CORPUSCULAR HGB 24.7 pG CALC (26.0-32.0); MEAN CORPUSCULAR HGB CONC 31.4 g/dL CAL (32.0-36.0); NEUT# 11.37 thou/uL (1.82-7.42); RED BLOOD COUNT 4.58 mill/uL (4.70-6.10); RED CELL DISTRI WIDTH 14.8 % (11.5-15.5)
--- NOTE | 2020-10-18 08:57 | NUR ---
AFEBRILE. PROVIDED PATIENT PHONE AND DIALED HIS FAMILY MEMBER, HE IS ON THE PHONE TALKING. HE CONTINUES TO CRY AND IS RESTLESS. REQUESTS PAIN MEDICATION. WILL PROVIDE. HE BENNETT STAKEN HIS NASAL CANNULA OFF AND O2 SAT IS 95% AND ABOVE. WILL CONTINUE TO MONITOR.
[2020-10-18 09:00] LABS: ALBUMIN 3.8 g/dL (3.2-5.0); ALKALINE PHOSPHATASE 124 u/l (38-126); ANION GAP 14 (6-22 (CALC)); BUN 21 mg/dL (9-20); BUN/CREATININE RATIO 39 (12-20 (CALC)); C-REACTIVE PROTEIN 1.8 mg/dL (0-0.9); CARBON DIOXIDE 22 mmol/l (22-30); CHLORIDE 100 mmol/l (95-108); CREATININE 0.5 mg/dL (0.7-1.3); GFR > 60 ML/MIN (>=60 (CALC)); GFR FOR AFR.AMER. > 60 ML/MIN (>=60 (CALC)); POTASSIUM 4.3 mmol/l (3.5-5.1); SGOT/AST 23 u/l (17-59); SODIUM 131 mmol/l (137-146)
--- NOTE | 2020-10-18 09:01 | NUR ---
DR DOMINGO DID NOTIFY ME WHEN HE ROUNDED THIS MORNING, HE WEANED O2 TO 1 L/MIN NC, IF PATIENT'S O2 SATS ARE WNL, PATIENT CAN BE TRANSFERRED TO MED SURG FLOOR.
[2020-10-18 09:02] LABS: BILIRUBIN, TOTAL 0.6 mg/dL (0.0-1.4)
--- NOTE | 2020-10-18 09:14 | NUR ---
PAIN MEDICATION GIVEN, PATIENT ENCOURAGED TO REST IN RECLINER, PATIENT PREFERS TO LAY IN BED, LAYS IN HIGH DAVIDSON'S. DISCUSSED POC AND COVID DIAGNOSIS WELL HIS HIGH BLOOD SUGARS. EXPLAINED HE IS ON ANTIBIOTICS AND STEROID FOR COVID, AND HE REQUESTS A SANDWICH OR JELLO, I OFFERED JELLO SINCE JELLO HERE IS SUGAR FREE AND LOW CALORIES, AND REQUESTS A BEVERLEY FREDDIE. WILL PROVIDE.
--- NOTE | 2020-10-18 11:49 | NUR ---
PAIN MEDICATION PROVIDED PER REQUEST. INSULIN PROVIDED PER PROTOCOL. AFEBRILE. ASKS, "HOW'S MY BREATHING?" KIRAN WAS REASSURED HIS VS ARE WNL. VERBAL CUES GIVEN TO TAKE DEEPS BREATHES TO CALM DOWN. PATIENT IS NOT TACHYPNEIC OR BREATHING HEAVILY AND THAN ALL OF A SUDDEN HE STARTS TO BREATHE HEAVILY TO THE POINT WHERE HE STARTS WHEEZING, THAN A FEW SECONDS LATER HE IS BREATHING WNL. NOW SITS ON SIE OF BED TO EAT HIS LUNCH. CALL LIGHT WITHIN REACH.
--- NOTE | 2020-10-18 12:22 | NUR ---
REPORT REC FROM Ayla ESPINO RN
--- NOTE | 2020-10-18 12:25 | NUR ---
PATIENT TAKEN TO ROOM 291 AT [facility], TAKEN VIA WHEELCHAIR, ON 1 L/MIN NC. NO ACUTE DISTRESS SHOWN. 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 ALL MEDICATIONS TAKEN, WELL MEDICATIONS THAT HIS FAMILY BROUGHT FROM HOME. PATIENT ABLE TO TRANSFER TO THE BED WITHOUT DIFFICULTY.
--- NOTE | 2020-10-18 12:25 | NUR ---
PT ARRIVED VIA WC ACCOMPANIED BY LAVONNE MARRERO. A&O TO SELF AND PLACE. PT ANXIOUS AMBULATING ROOM VIA ROOM AIR. NO DISTRESS NOTED. IV AZITHROMYCIN CONTINUED, PER ORDERS. #20 SPARKLE HEALTHY AND PATENT. NO OTHER NEEDS AT THIS TIME. DISCUSSED POC, CONTINUATION OF CARE. CALL LIGHT LEFT WITHIN REACH.
--- NOTE | 2020-10-18 13:20 | NUR ---
CORPORATE PARALEGAL PLACED ON PATIENT. CURRENTLY READING SR-ST 101.
--- NOTE | 2020-10-18 18:06 | NUR ---
po dilaudid given. pt c/o of pain and wanting anxiety medication, explained to pt that both medications would not be given at this time for safety reasons. Prn ativan to be given later if needed. pt verbalized understanding. Pt denies any other needs at this time. call light left within reach.
--- NOTE | 2020-10-18 21:34 | NUR ---
0PT MEDICATED ORDERS PROVIDE. PT ASKING WHAT TIME EXACTLY DID HE HAVE HIS PAIN MEDICATION. I SHOWED HIM THE TIMES RECORDED IN NOV, REVIEWED WHEN THEY WOULD BE AVAILABLE AGAIN. HE STATED "SheDIDN'T RECORD IT AT THE SAME TIME SHE GAVE IT TO ME. SHE GAVE DILAUDID TO ME EARLIER THAN THAT." I INFORMED HIM THAT HE WAS ABLE TO HAVE THE MORPHINE AT THIS TIME, HE STATED "IT DOESN'T HELP." I HE SAID, "WELL WHAT CAN I HAVE AND WHEN?" I ASKED IF HE WAS IN ANY PAIN AND EDUCATED HIM ON THE NEED FOR MEDICATIONS BASED ON PAIN, NOT ON A SCHEDULE, HE SAID "EEEHHH IT IS MAYBE A 6, I DON'T KNOW I JUST ALWAYS HAVE PAIN." HE SAID HE THINKS HE HAS A UTI BECAUSE IT HURTS WHEN HE URINATES. I REVIEWED LAB RESULTS WITH HIM AT THIS TIME. PT MEDICATED WITH ATIVAN FOR ANXIOUSNESS AT THIS TIME. HE STATED THAT HE WOULD "BE AWAKE WAITING ON THE PAIN MEDICATION AT MIDNIGHT." I ENCOURAGED HIM TO RELAX, ALLOW THE ATIVAN TO HELP HIM, GET SOME REST AND WE WOULD BE IN AT MIDNIGHT TO OBTAIN V/S AND THAT WOULD WAKE HIM UP, THEN IF HE IS HAVING PAIN AT THAT TIME I WILL BRING HIS MEDICATION. HE VERBALIZED THAT HE WOULD TRY. OXYGEN ON SATURATION LEVEL AT 100% AT THIS TIME @2L. 1
--- NOTE | 2020-10-18 23:55 | NUR ---
PT MEDICATED FOR PAIN REPORTED IN BACK, HEAD, AND CHEST. PT WAS SITTING IN BED UPRIGHT DRAWING. SOON I WALKED IN HE JUMPED UP AND STARTED MOVING AROUND ASKING ABOUT HIS MEDICATION, I INFORMED HIM THAT WE ARE THERE TO OBTAIN V/S AND I BROUGHT HIM HIS PAIN MEDICATION. HE THEN REPLIED, YOU NEED TO GIVE ME MY ANXIETY MEDICATION, I INFORMED HIM THAT I HAD ALREADY GIVEN HIM THAT AND THAT IT WAS TOO SOON FOR ANOTHER DOSE OF THAT AT THIS TIME, VERBALIZED UNDERSTANDING. PT ASKED FOR APPLEJUICE, I TALKED WITH HIM ABOUT HIS SUGAR BEING VERY HIGH AND HE AGREED TO EAT JELLO AND ICE CHIPS, STATES IT IS FOR HIS THROAT, PROVIDED THESE COMFORT MEASURES.
[2020-10-19 00:26] VITALS: BP 148/81
--- NOTE | 2020-10-19 02:10 | NUR ---
PT IS SITTING UP IN THE BED DRAWING AND WATCHING TV. LIGHTS ARE ON. CALL LIGHT NEAR.
[2020-10-19 03:52] VITALS: BP 152/69
[2020-10-19 05:15] LABS: HEMATOCRIT 38.6 % (39.0-50.0); HEMOGLOBIN 12.2 g/dl (14.0-18.0); IMMATURE GRANULOCYTES 3.8 % (0.0-5.0); MEAN CELL VOLUME 78.8 fL CALC (80.0-100.0); MEAN CORPUSCULAR HGB 24.9 pG CALC (26.0-32.0); MEAN CORPUSCULAR HGB CONC 31.6 g/dL CAL (32.0-36.0); NEUT# 7.26 thou/uL (1.82-7.42); RED BLOOD COUNT 4.9 mill/uL (4.70-6.10); RED CELL DISTRI WIDTH 14.9 % (11.5-15.5)
[2020-10-19 05:26] LABS: ANION GAP 19 (6-22 (CALC)); BUN 19 mg/dL (9-20); BUN/CREATININE RATIO 26 (12-20 (CALC)); CARBON DIOXIDE 18 mmol/l (22-30); CHLORIDE 98 mmol/l (95-108); CREATININE 0.7 mg/dL (0.7-1.3); GFR > 60 ML/MIN (>=60 (CALC)); GFR FOR AFR.AMER. > 60 ML/MIN (>=60 (CALC)); POTASSIUM 4.2 mmol/l (3.5-5.1); SODIUM 131 mmol/l (137-146)
--- NOTE | 2020-10-19 06:05 | NUR ---
PT CALLED TO ASK FOR PAIN MEDICATION AND SODA. I WAS HEADING TOWARD THE MED ROOM TO PULL MEDICATIONS THE PATIENT WAS OBSERVED BY MYSELF AND ANOTHER NURSE IN [facility] HALLWAY LOOKING OUT THE WINDOW OF THE DOUBLE HALLWAY DOORS. WHEN I ENTERED ENTERED THE PATIENTS ROOM AND ASKED HIM NOT TO LEAVE THE ROOM THAT HE IS IN DUE TO BEING COVID POSITIVE, HE REPLIED, "I DIDN'T." I INFORMED THE PT THAT MYSELF AND ANOTHER NURSE HAD VISUALIZED HIM IN THE HALLWAY AND ASKED HIM NOT TO BE WANDERING AROUND OUT IN THE COMMON HALLWAY, HE BECAME DISGRUNTLED AND STATED THAT HE HAD HIS MASK ON AND HE JUST WANTED TO GO OUT THERE TO THROW THINGS AWAY AND HE CAN GO HOME IF HE NEEDS TO. I INFORMED PT OF HIS BLOOD SUGAR OF 570 AND THAT I BROUGHT HIM SOME INSULIN AND PAIN MEDICATIONS. HE DECIDED TO STAY AND RECIEVE HIS MEDICATIONS AT THIS TIME.
--- NOTE | 2020-10-19 06:11 | NUR ---
PT MEDICATED FOR PAIN REPORTED 4/10 ON PAIN SCALE.
--- NOTE | 2020-10-19 06:15 | NUR ---
RESIDENTIAL PEST CONTROL TECHNICIAN CERAMICS ENGINEER NOTIFIED OF GLUCOSE 570, NEW ORDER RECEIVED AT THIS TIME. REPORTS FROM MOTOR AND CONTROLS TESTER THAT PT HAS BEEN CALLING THE HOSPITAL DEVELOPMENT SYSTEM EFFICIENCY MANAGER AND CODE LINE TO C/O HIS CARE. I INFORMED MOTOR AND CONTROLS TESTER OF MY PRIOR DISCUSSION WITH PT REGARDING HOSPITAL POLICY AND SAFETY ISSUES FOR OTHER PT'S AND STAFF REGARDING COVID POSITIVE PROTOCOL AND AMBULATING WITHOUT HIS OXYGEN AND WHILE TAKING PAIN AND ANXIETY MEDICATIONS.
--- NOTE | 2020-10-19 07:30 | NUR ---
REPORT REC FROM Tam ATKINS RN. PT SLEEPING IN BED, NO ACTIVE DISTRESS NOTED.
[2020-10-19 08:03] VITALS: BP 163/81
--- NOTE | 2020-10-19 08:03 | NUR ---
PT SITTING IN BED. A&O. PT ANXIOUS AND TEARY, VERBAL QUES GIVEN. PT RECEPTIVE AND COOPERATIVE. IV #20 SPARKLE INTACT AND HEALTHY WITH IVF PER MAR. O2 VIA NC @2L IN PLACE. ASSESSMENT COMPLETED. DISCUSSED POC. CALL LIGHT LEFT WITHIN REACH.
--- NOTE | 2020-10-19 09:39 | NUR ---
DR DOMINGO AND Connie HALLMAN APRN AT BEDSIDE
[2020-10-19 10:48] VITALS: BP 108/67
--- NOTE | 2020-10-19 12:13 | NUR ---
PT SITTING IN BED DRAWING, PT C/O LOWER BACK PAIN. PAIN MEDICATION TO BE GIVEN. NO OTHER NEEDS AT THIS TIME. CALL LIGHT LEFT WITHIN REACH.
[2020-10-19 15:00] VITALS: BP 105/69
--- NOTE | 2020-10-19 17:07 | NUR ---
RISK MANAGEMENT AT BEDSIDE
[2020-10-19 19:00] VITALS: BP 142/71
--- NOTE | 2020-10-19 20:05 | NUR ---
REPORT GIVEN BY KADEN. PATIENT IS ALERT AND ORIENTED, WATCHING TV IN BED. C/O OF PAIN AND REQUESTING PAIN MEDS. NO S/S OF DISTRESS NOTED. FALL AND SAFTEY PRECAUTIONS IN PLACE. IV SALINE LOCKED. RESP EVEN AND UNLABORED, 2L VIA NC. PLAN OF CARE DISCUSSED. PATIENT INFORMED TO CALL WITH ANY QUESTIONS OR CONCERNS.
[2020-10-20 00:08] VITALS: BP 110/67
--- NOTE | 2020-10-20 00:09 | NUR ---
NO CHANGE IN ASSESSMENT. NO S/S DISTRESS NOTED. FALL AND SAFTEY PRECAUTIONS IN PLACE.
[2020-10-20 04:00] VITALS: BP 119/72
[2020-10-20 05:42] LABS: HEMATOCRIT 36.1 % (39.0-50.0); HEMOGLOBIN 11.4 g/dl (14.0-18.0); IMMATURE GRANULOCYTES 2.9 % (0.0-5.0); MEAN CELL VOLUME 78.5 fL CALC (80.0-100.0); MEAN CORPUSCULAR HGB 24.8 pG CALC (26.0-32.0); MEAN CORPUSCULAR HGB CONC 31.6 g/dL CAL (32.0-36.0); NEUT# 7.78 thou/uL (1.82-7.42); RED BLOOD COUNT 4.6 mill/uL (4.70-6.10); RED CELL DISTRI WIDTH 15.4 % (11.5-15.5)
[2020-10-20 06:06] LABS: ALBUMIN 3.6 g/dL (3.2-5.0); ALKALINE PHOSPHATASE 137 u/l (38-126); ANION GAP 15 (6-22 (CALC)); BILIRUBIN, TOTAL 0.6 mg/dL (0.0-1.4); BUN 20 mg/dL (9-20); BUN/CREATININE RATIO 38 (12-20 (CALC)); C-REACTIVE PROTEIN 3.1 mg/dL (0-0.9); CARBON DIOXIDE 21 mmol/l (22-30); CHLORIDE 99 mmol/l (95-108); CREATININE 0.5 mg/dL (0.7-1.3); GFR > 60 ML/MIN (>=60 (CALC)); GFR FOR AFR.AMER. > 60 ML/MIN (>=60 (CALC)); POTASSIUM 4.1 mmol/l (3.5-5.1); SGOT/AST 21 u/l (17-59); SODIUM 130 mmol/l (137-146); TOTAL PROTEIN 6.7 g/dL (6.3-8.2)
[2020-10-20 08:12] VITALS: BP 112/79
--- NOTE | 2020-10-20 08:12 | NUR ---
RECIEVED REPORT FROM JANES ANDERSON. PT WALKING AROUND ROOM VERY AXIOUS, ASKING ABOUT INSULIN.INTRODUCED SELF TO PT AND DISCUSSED POC. PT IS A/O X3. ASSESSMENT AND VITALS COMPLETED. BP 112/79, HR 96, O2 98 ON 1L NC. ATTEMPTED TO REMOVE. PT COMPLAINS OF SOB. RESIRATIONS ARE SHALLOW, PT APPEARS TO EXCERTING HIM SELF. PROPOSAL REP INSTRUTED PT ON BREATHING NORMAL. HEART RHYTHM NORMAL WITH TELE IN PLACE, SR WITH IVCD PER ER MONITORING. BOWEL SOUNDS ARE ACTIVE. RADIAL AND PEDAL PULSES ARE STRONG. #20G SPARKLE INFUSING WITH IVF PER ORDER, SITE APPEARS HEALTHY AND PATENT. PT COMPLAINS OF 9/10 BACK PAIN, PT MEDICATED PER EMAR. ACCUCHECK RESUTLING IN 273, COVERAGED ADMINISTERED. ALL SAFETY PRECAUTIONS ARE IN PLACE. WILL CONTINUE TO MONITOR.
--- NOTE | 2020-10-20 09:50 | NUR ---
DR DOMINGO AT BEDSIDE
[2020-10-20] MEDS ORDERED: DEXAMETHASON6 MG PO (10:18)
[2020-10-20] MEDS ORDERED: ZITHROMAX250 MG PO (10:18)
[2020-10-20] MEDS ORDERED: SEROQUEL25 MG PO (10:27)
--- NOTE | 2020-10-20 10:31 | NUR ---
WALK TEST COMPLETED. O2 95% ON ROOM AIR SITTING. O2 SAT 96% ON ROOM AIR WHILE WALKING. WHIL WALKING PT PROCEDED TO THROUGH SELF ONTO FLOOR ON KNEES AND FLUTTER HIS EYES. OLIVE PACKER ASKED IF HE WAS OK AND HE STOOD UP AND STATED " YES, THATS SO WEIRD. I JUST GOT DIZZY." ATTEMPT TO TAKE PT BACK TO ROOM VIA WHEELCHAIR. PT REFUSES STATING I CAN WALK. PT WALKED BACK TO ROOM 281 WITH STEADY GAIT. O2 SAT 100% WHILE RESTING ON ROOM AIR. NO VISIBLE INJURIES. PT DENEIS OF ANY NEW PAINS. ALL SAFETY PRECAUTIONS ARE IN PLACE. WILL CONTINUE TO MONITOR.
[2020-10-20 12:00] VITALS: BP 143/90
--- NOTE | 2020-10-20 12:40 | NUR ---
PT EDUCATED ON DISCHARGE INSTRUCTIONS AND NEW MEDICTIONS. PT VERBALIZED UNDERSTANDING. PT STATES HE WILL NOT HAVE A RIDE UNTIL 1600. PROMOTION PRODUCER VERALIZED UNDERSTANDING. #20G IN SPARKLE REMAINS INFUSING WITH IV ANTIBITOICS, SITE APPEARS HEALTHY AND PATENT. TELE MONITORING IN PLACE. PT DENIES OF ANY NEEDS AT THIS TIME. ALL SAFETY PRECAUTIONS ARE IN PLACE. WILL CONTINUE TO MONITOR
--- NOTE | 2020-10-20 15:17 | NUR ---
TELE MONITORING REMOVED, ER NOTIFIED. IV REMOVED WITH CATHATER STILL INTACT. PT TOELRATED WELL. PT INFORMED WRITTER THAT HE WUILL BE DISCHARGED VIA TAXI. SALES REPRESENTATIVE ADDING MACHINES INFORMED PT THAT PAIN MEDICATION WAS NOT GOING TO BE GIVEN WHEN DISCHARGED VIA WHEELCHAIR. PT THEN BEGAN TO CHANGE STORY, STATING " IM GOING TO GO WAIT DOWN STAIRS FOR MY SON AT 430." SALES REPRESENTATIVE ADDING MACHINES INFORMED PT THAT IF HE WANTED PAIN MEDICATION HE NEEDED TO STAY IN ROOM UNTIL 1630. PT REFUSED STATED HE DIDNT WANT TO STAY IN THE ROOM AND NO LONGER WANTED PAIN MEDICATION. MARY,ANRP NOTIFIED.
--- NOTE | 2020-10-20 15:25 | NUR ---
Discharge instructions given. Patient verbalizes understanding of same. Discharged in stable condition via Wheelchair to Home with staff. All belongings sent with pt. PT DISCHARGED HOME VIA WHEELCHAIR IN STABLE CONDITION.PT DISCHARGED WITH ALL BELONGINGS AND DISCHARGE INSTRUCTIONS. PT INSISTED TO GO DOWN STAIRS UNTIL SON ARRIVED. JOE HERNANDEZ NOTIFIED.
== END 2020-10-20 15:23 | disposition home or self-care (01) ==
LOC: ED 23:08 → ED-I 10-17 02:37 → ED 10-17 02:59 → ICU 10-17 03:00 → MS2 10-18 12:25
PROVIDERS: Emergency Medicine; Internal Medicine; Nurse Practitioner; ADMIT Internal Medicine; ATTEND Internal Medicine
DX: U07.1 COVID-19 (principal); J12.82 Pneumonia due to coronavirus disease 2019; R06.03 Acute respiratory distress; J44.0 Chronic obstructive pulmonary disease with (acute) lower respiratory infection; I10 Essential (primary) hypertension; E11.65 Type 2 diabetes mellitus with hyperglycemia; E11.00 Type 2 diabetes mellitus with hyperosmolarity without nonketotic hyperglycemic-hyperosmolar coma (NKHHC); C85.90 Non-Hodgkin lymphoma, unspecified, unspecified site; F41.9 Anxiety disorder, unspecified; E03.9 Hypothyroidism, unspecified; I25.10 Atherosclerotic heart disease of native coronary artery without angina pectoris; F31.9 Bipolar disorder, unspecified; R04.2 Hemoptysis; G89.4 Chronic pain syndrome; G40.909 Epilepsy, unspecified, not intractable, without status epilepticus; I25.2 Old myocardial infarction; F17.200 Nicotine dependence, unspecified, uncomplicated; Z79.01 Long term (current) use of anticoagulants; Z86.011 Personal history of benign neoplasm of the brain; Z92.21 Personal history of antineoplastic chemotherapy; Z79.891 Long term (current) use of opiate analgesic; Z79.899 Other long term (current) drug therapy; Z86.74 Personal history of sudden cardiac arrest; Z85.46 Personal history of malignant neoplasm of prostate; Z92.3 Personal history of irradiation; Z79.4 Long term (current) use of insulin; Z21 Asymptomatic human immunodeficiency virus [HIV] infection status
CPT/HCPCS: J2060; Q9967

== ENCOUNTER 2020-12-11 | Emergency (ER) | payer OTHER, MEDICARE ==
[~2020-12-11] MED LIST changes: +BUPROPION150 M3 PO; +CRESTOR5 MG PO; +DEXAMETHASON6 MG PO; +ELIQUIS5 MG PO; +GABAPENTIN100 MG PO; +LANTUS100 UNIT/M SC; +LISINOPRIL10 MG PO; +LOPRESSOR25 MG PO; +NOVOLOG100 UNIT/M SC; +OMEPRAZOLE20 M1 PO; +PHENAZO200 MG PO; +SEROQUEL25 MG PO; +TRIAMCINOLON0.0253 EX; +TRUVADA1 TA1 PO
[2020-12-11 10:59] LABS: HEMATOCRIT 39.3 % (39.0-50.0); HEMOGLOBIN 12.5 g/dl (14.0-18.0); IMMATURE GRANULOCYTES 1.5 % (0.0-5.0); MEAN CORPUSCULAR HGB 26.1 pG CALC (26.0-32.0); MEAN CORPUSCULAR HGB CONC 31.8 g/dL CAL (32.0-36.0); NEUT# 7.58 thou/uL (1.82-7.42); RED BLOOD COUNT 4.79 mill/uL (4.70-6.10); RED CELL DISTRI WIDTH 16.8 % (11.5-15.5)
[2020-12-11 11:11] LABS: ALKALINE PHOSPHATASE 166 u/l (38-126); ANION GAP 15 (6-22 (CALC)); BILIRUBIN, TOTAL 0.7 mg/dL (0.0-1.4); BUN 15 mg/dL (9-20); BUN/CREATININE RATIO 25 (12-20 (CALC)); CARBON DIOXIDE 24 mmol/l (22-30); CHLORIDE 99 mmol/l (95-108); CREATININE 0.6 mg/dL (0.7-1.3); GFR > 60 ML/MIN (>=60 (CALC)); GFR FOR AFR.AMER. > 60 ML/MIN (>=60 (CALC)); POTASSIUM 4.6 mmol/l (3.5-5.1); SODIUM 133 mmol/l (137-146)
[2020-12-11 11:16] LABS: ALBUMIN 4.7 g/dL (3.2-5.0); SGOT/AST 46 u/l (17-59); TOTAL PROTEIN 8.8 g/dL (6.3-8.2)
[2020-12-11] MEDS ORDERED: NAPROXEN500 MG PO (11:46)
== END 2020-12-11 12:03 | disposition home or self-care (01) | DRG 125 ==
PROVIDERS: Emergency Medicine
DX: S00.12XA Contusion of left eyelid and periocular area, initial encounter (principal); S20.211A Contusion of right front wall of thorax, initial encounter; I10 Essential (primary) hypertension; E11.9 Type 2 diabetes mellitus without complications; C85.90 Non-Hodgkin lymphoma, unspecified, unspecified site; G40.909 Epilepsy, unspecified, not intractable, without status epilepticus; J44.9 Chronic obstructive pulmonary disease, unspecified; I25.2 Old myocardial infarction; V89.2XXA Person injured in unspecified motor-vehicle accident, traffic, initial encounter; Z79.4 Long term (current) use of insulin; Z21 Asymptomatic human immunodeficiency virus [HIV] infection status

== ENCOUNTER 2022-03-16 14:59 | Observation (INO) | payer MEDICARE ==
[~2022-03-16] VITALS: Ht 162.6 cm; Wt 97.0 kg
[~2022-03-16 14:59] MED LIST changes: +IBUPROFEN600 MG PO; -KEPPRA500 M2 PO; -LOPRESSOR25 MG PO; +NAPROXEN500 MG PO; +TOPROL XL25 M1 PO
[2022-03-16 15:35] LABS: HEMATOCRIT 37.6 % (39.0-50.0); HEMOGLOBIN 12.2 g/dl (14.0-18.0); IMMATURE GRANULOCYTES 0.9 % (0.0-5.0); MEAN CELL VOLUME 83.6 fL CALC (80.0-100.0); MEAN CORPUSCULAR HGB 27.1 pG CALC (26.0-32.0); MEAN CORPUSCULAR HGB CONC 32.4 g/dL CAL (32.0-36.0); NEUT# 6.04 thou/uL (1.82-7.42); RED BLOOD COUNT 4.5 mill/uL (4.70-6.10)
[2022-03-16 15:37] VITALS: BP 136/78
[2022-03-16 15:53] LABS: ALBUMIN 4.1 g/dL (3.2-5.0); ALKALINE PHOSPHATASE 105 u/l (38-126); ANION GAP 15 (6-22 (CALC)); BUN 13 mg/dL (9-20); BUN/CREATININE RATIO 24 (12-20 (CALC)); CARBON DIOXIDE 24 mmol/l (22-30); CHLORIDE 101 mmol/l (95-108); CREATININE 0.5 mg/dL (0.7-1.3); GFR FOR AFR.AMER. > 60 ML/MIN (>=60 (CALC)); GFR OTHER RACES > 60 ML/MIN (>=60 (CALC)); POTASSIUM 4.3 mmol/l (3.5-5.1); SGOT/AST 19 u/l (17-59); SODIUM 136 mmol/l (137-146); TOTAL PROTEIN 7.4 g/dL (6.3-8.2)
[2022-03-16 15:55] LABS: BILIRUBIN, TOTAL 0.5 mg/dL (0.0-1.4)
[2022-03-16 16:00] VITALS: BP 116/63
[2022-03-16 18:42] VITALS: BP 118/73
[2022-03-16 19:00] VITALS: BP 116/73
[2022-03-16 19:07] LABS: URINE BILIRUBIN - DIPSTICK NEGATIVE (NEGATIVE); URINE BLOOD DIPSTICK NEGATIVE (NEGATIVE); URINE COLOR YELLOW; URINE GLUCOSE - DIPSTICK NEGATIVE (NEGATIVE); URINE KETONE NEGATIVE (NEGATIVE); URINE LEUK ESTERASE NEGATIVE (NEGATIVE); URINE PH 6.5 (4.5-8.0); URINE PROTEIN - DIPSTICK NEGATIVE (NEG-TRACE); URINE SPECIFIC GRAVITY 1.025; URINE UROBILINOGEN - DIPSTICK 0.2 E.U./dL (0.2)
[2022-03-16 19:09] LABS: URINE NITRITE - DIPSTICK NEGATIVE (Negative)
[2022-03-16 19:43] VITALS: BP 124/70
[2022-03-16 20:23] VITALS: BP 131/82
[2022-03-17] VITALS (8 sets, daily range): BP systolic 113–129; BP diastolic 69–78
[2022-03-17 05:23] LABS: HEMATOCRIT 31.9 % (39.0-50.0); HEMOGLOBIN 10.5 g/dl (14.0-18.0); MEAN CELL VOLUME 84.6 fL CALC (80.0-100.0); MEAN CORPUSCULAR HGB 27.9 pG CALC (26.0-32.0); MEAN CORPUSCULAR HGB CONC 32.9 g/dL CAL (32.0-36.0); RED BLOOD COUNT 3.77 mill/uL (4.70-6.10)
[2022-03-17 05:42] LABS: BUN 14 mg/dL (9-20); BUN/CREATININE RATIO 23 (12-20 (CALC)); CHLORIDE 100 mmol/l (95-108); CREATININE 0.6 mg/dL (0.7-1.3); GFR FOR AFR.AMER. > 60 ML/MIN (>=60 (CALC)); GFR OTHER RACES > 60 ML/MIN (>=60 (CALC)); POTASSIUM 4.1 mmol/l (3.5-5.1); SODIUM 136 mmol/l (137-146)
[2022-03-17 05:45] LABS: ANION GAP 11 (6-22 (CALC)); CARBON DIOXIDE 29 mmol/l (22-30)
[2022-03-17] MEDS ORDERED: REGLAN10 MG PO (11:58)
[2022-03-17] MEDS ORDERED: NOVOLIN R100 UNIT/M SC (11:59)
[2022-03-17] MEDS ORDERED: ACYCLOVIR400 MG PO (12:00)
[2022-03-17] MEDS ORDERED: CITALOPRAM40 MG PO (12:00)
[2022-03-17] MEDS ORDERED: SYMTUZA 800-1501 TAB PO (12:03)
[2022-03-17] MEDS ORDERED: BUSPIRONE5 MG PO (12:06)
[2022-03-17] MEDS ORDERED: TAMSULOSIN0.4 MG PO (12:06)
[2022-03-17] MEDS ORDERED: PROCARDIA XL30 MG PO (12:06)
[2022-03-18] VITALS (8 sets, daily range): BP systolic 117–140; BP diastolic 62–88
[2022-03-18 05:19] LABS: HEMATOCRIT 31.3 % (39.0-50.0); HEMOGLOBIN 10.5 g/dl (14.0-18.0); MEAN CELL VOLUME 82.2 fL CALC (80.0-100.0); MEAN CORPUSCULAR HGB 27.6 pG CALC (26.0-32.0); MEAN CORPUSCULAR HGB CONC 33.5 g/dL CAL (32.0-36.0); RED BLOOD COUNT 3.81 mill/uL (4.70-6.10); RED CELL DISTRI WIDTH 13.7 % (11.5-15.5)
[2022-03-18 05:46] LABS: BUN 15 mg/dL (9-20); BUN/CREATININE RATIO 28 (12-20 (CALC)); CHLORIDE 99 mmol/l (95-108); CREATININE 0.5 mg/dL (0.7-1.3); GFR FOR AFR.AMER. > 60 ML/MIN (>=60 (CALC)); GFR OTHER RACES > 60 ML/MIN (>=60 (CALC)); POTASSIUM 4.7 mmol/l (3.5-5.1); SODIUM 133 mmol/l (137-146)
[2022-03-18 05:51] LABS: ANION GAP 19 (6-22 (CALC)); CARBON DIOXIDE 20 mmol/l (22-30); MAGNESIUM 1.5 mg/dL (1.6-2.3)
[2022-03-19] VITALS (7 sets, daily range): BP systolic 120–158; BP diastolic 60–81
[2022-03-19 05:14] LABS: HEMATOCRIT 32.9 % (39.0-50.0); HEMOGLOBIN 10.7 g/dl (14.0-18.0); MEAN CELL VOLUME 83.1 fL CALC (80.0-100.0); MEAN CORPUSCULAR HGB CONC 32.5 g/dL CAL (32.0-36.0); RED BLOOD COUNT 3.96 mill/uL (4.70-6.10); RED CELL DISTRI WIDTH 13.9 % (11.5-15.5)
[2022-03-19 05:30] LABS: ANION GAP 15 (6-22 (CALC)); BUN 22 mg/dL (9-20); BUN/CREATININE RATIO 35 (12-20 (CALC)); CARBON DIOXIDE 20 mmol/l (22-30); CHLORIDE 104 mmol/l (95-108); CREATININE 0.6 mg/dL (0.7-1.3); GFR FOR AFR.AMER. > 60 ML/MIN (>=60 (CALC)); GFR OTHER RACES > 60 ML/MIN (>=60 (CALC)); POTASSIUM 4.6 mmol/l (3.5-5.1); SODIUM 135 mmol/l (137-146)
[2022-03-19 05:38] LABS: MAGNESIUM 1.9 mg/dL (1.6-2.3)
[2022-03-20 00:01] VITALS: BP 134/63
[2022-03-20 04:25] VITALS: BP 155/75
[2022-03-20 05:36] LABS: HEMATOCRIT 35.7 % (39.0-50.0); HEMOGLOBIN 11.9 g/dl (14.0-18.0); MEAN CELL VOLUME 83.2 fL CALC (80.0-100.0); MEAN CORPUSCULAR HGB 27.7 pG CALC (26.0-32.0); MEAN CORPUSCULAR HGB CONC 33.3 g/dL CAL (32.0-36.0); RED BLOOD COUNT 4.29 mill/uL (4.70-6.10); RED CELL DISTRI WIDTH 14.1 % (11.5-15.5)
[2022-03-20 05:48] LABS: BUN 19 mg/dL (9-20); BUN/CREATININE RATIO 30 (12-20 (CALC)); CARBON DIOXIDE 22 mmol/l (22-30); CREATININE 0.6 mg/dL (0.7-1.3); GFR FOR AFR.AMER. > 60 ML/MIN (>=60 (CALC)); GFR OTHER RACES > 60 ML/MIN (>=60 (CALC)); MAGNESIUM 1.9 mg/dL (1.6-2.3)
[2022-03-20 05:57] LABS: ANION GAP 16 (6-22 (CALC)); CHLORIDE 104 mmol/l (95-108); POTASSIUM 4.4 mmol/l (3.5-5.1); SODIUM 138 mmol/l (137-146)
[2022-03-20 07:22] VITALS: BP 145/67
[2022-03-20 10:24] VITALS: BP 139/82
[2022-03-20 14:50] VITALS: BP 136/82
[2022-03-20 19:30] VITALS: BP 133/72
[2022-03-21 00:13] VITALS: BP 129/73
[2022-03-21 05:05] LABS: HEMOGLOBIN 11.5 g/dl (14.0-18.0); MEAN CELL VOLUME 83.5 fL CALC (80.0-100.0); MEAN CORPUSCULAR HGB 27.4 pG CALC (26.0-32.0); MEAN CORPUSCULAR HGB CONC 32.9 g/dL CAL (32.0-36.0); RED BLOOD COUNT 4.19 mill/uL (4.70-6.10); RED CELL DISTRI WIDTH 14.2 % (11.5-15.5)
[2022-03-21 05:06] VITALS: BP 122/71
[2022-03-21 05:25] LABS: ANION GAP 12 (6-22 (CALC)); BUN 24 mg/dL (9-20); BUN/CREATININE RATIO 27 (12-20 (CALC)); CARBON DIOXIDE 22 mmol/l (22-30); CHLORIDE 105 mmol/l (95-108); CREATININE 0.9 mg/dL (0.7-1.3); GFR FOR AFR.AMER. > 60 ML/MIN (>=60 (CALC)); GFR OTHER RACES > 60 ML/MIN (>=60 (CALC)); MAGNESIUM 1.5 mg/dL (1.6-2.3); POTASSIUM 4.1 mmol/l (3.5-5.1); SODIUM 134 mmol/l (137-146)
[2022-03-21 07:00] VITALS: BP 137/75
[2022-03-21 08:00] VITALS: BP 154/82
[2022-03-21 10:26] VITALS: BP 154/82
[2022-03-21] MEDS ORDERED: ROBITUSSIN AC10 ML PO (10:53)
== END 2022-03-21 12:14 | disposition home or self-care (01) ==
LOC: ED 14:59 → ED-I 16:25 → ED 17:00 → MS2 17:01
PROVIDERS: Family Medicine; ADMIT Hospitalist; ATTEND Hospitalist
DX: J18.9 Pneumonia, unspecified organism (principal); E87.2 Acidosis; I10 Essential (primary) hypertension; E11.9 Type 2 diabetes mellitus without complications; E78.5 Hyperlipidemia, unspecified; R04.2 Hemoptysis; I25.10 Atherosclerotic heart disease of native coronary artery without angina pectoris; I48.91 Unspecified atrial fibrillation; R56.9 Unspecified convulsions; E03.9 Hypothyroidism, unspecified; G89.29 Other chronic pain; F17.200 Nicotine dependence, unspecified, uncomplicated; Z21 Asymptomatic human immunodeficiency virus [HIV] infection status; Z79.84 Long term (current) use of oral hypoglycemic drugs; Z85.46 Personal history of malignant neoplasm of prostate; Z79.899 Other long term (current) drug therapy; Z86.74 Personal history of sudden cardiac arrest; Z85.841 Personal history of malignant neoplasm of brain; Z79.891 Long term (current) use of opiate analgesic; Z79.01 Long term (current) use of anticoagulants; Z79.4 Long term (current) use of insulin; Z20.822 Contact with and (suspected) exposure to COVID-19
CPT/HCPCS: G0378; J2060; J3475; Q9967

== ENCOUNTER 2022-03-30 20:05 | Emergency (ER) | payer MEDICARE ==
[2022-03-30] VITALS (10 sets, daily range): BP systolic 56–134; BP diastolic 31–86
[~2022-03-30] VITALS: Ht 162.6 cm; Wt 86.0 kg
[~2022-03-30 20:05] MED LIST changes: +ACYCLOVIR400 MG PO; +BUSPIRONE5 MG PO; +CITALOPRAM40 MG PO; +NOVOLIN R100 UNIT/M SC; +PROCARDIA XL30 MG PO; +REGLAN10 MG PO; +SYMTUZA 800-1501 TAB PO
[2022-03-30 20:50] LABS: HEMATOCRIT 37.7 % (39.0-50.0); HEMOGLOBIN 12.2 g/dl (14.0-18.0); IMMATURE GRANULOCYTES 1.6 % (0.0-5.0); MEAN CELL VOLUME 84.7 fL CALC (80.0-100.0); MEAN CORPUSCULAR HGB 27.4 pG CALC (26.0-32.0); MEAN CORPUSCULAR HGB CONC 32.4 g/dL CAL (32.0-36.0); NEUT# 10.24 thou/uL (1.82-7.42); RED BLOOD COUNT 4.45 mill/uL (4.70-6.10); RED CELL DISTRI WIDTH 14.4 % (11.5-15.5)
[2022-03-30 21:06] LABS: ALBUMIN 4.1 g/dL (3.2-5.0); ALKALINE PHOSPHATASE 118 u/l (38-126); AMYLASE 130 u/l (30-110); ANION GAP 15 (6-22 (CALC)); BILIRUBIN, TOTAL 0.3 mg/dL (0.0-1.4); BUN 15 mg/dL (9-20); BUN/CREATININE RATIO 17 (12-20 (CALC)); CARBON DIOXIDE 26 mmol/l (22-30); CHLORIDE 101 mmol/l (95-108); CREATININE 0.9 mg/dL (0.7-1.3); GFR FOR AFR.AMER. > 60 ML/MIN (>=60 (CALC)); GFR OTHER RACES > 60 ML/MIN (>=60 (CALC)); LIPASE 99 u/l (23-300); POTASSIUM 4.1 mmol/l (3.5-5.1); SGOT/AST 18 u/l (17-59); SODIUM 138 mmol/l (137-146); TOTAL PROTEIN 7.3 g/dL (6.3-8.2)
[2022-03-30 21:18] LABS: MYOGLOBIN 72 ng/mL (0 - 121)
[2022-03-30 22:50] LABS: URINE BILIRUBIN - DIPSTICK NEGATIVE (NEGATIVE); URINE BLOOD DIPSTICK NEGATIVE (NEGATIVE); URINE COLOR YELLOW; URINE GLUCOSE - DIPSTICK 250 mg/dL (NEGATIVE); URINE KETONE NEGATIVE (NEGATIVE); URINE LEUK ESTERASE NEGATIVE (NEGATIVE); URINE PROTEIN - DIPSTICK NEGATIVE (NEG-TRACE); URINE UROBILINOGEN - DIPSTICK 0.2 E.U./dL (0.2)
[2022-03-30 22:53] LABS: URINE NITRITE - DIPSTICK NEGATIVE (Negative)
[2022-03-30] MEDS ORDERED: KEFLEX500 MG PO (22:57)
[2022-03-30] MEDS ORDERED: ROBITUSSIN AC10 ML PO (22:59)
[2022-03-30] MEDS ORDERED: ONDANSETRON4 MG PO (22:59)
== END 2022-03-30 23:27 | disposition home or self-care (01) ==
LOC: ED 20:05
PROVIDERS: Emergency Medicine
DX: J06.9 Acute upper respiratory infection, unspecified (principal); R56.9 Unspecified convulsions; E11.9 Type 2 diabetes mellitus without complications; I10 Essential (primary) hypertension; C71.9 Malignant neoplasm of brain, unspecified; F11.20 Opioid dependence, uncomplicated; Z79.899 Other long term (current) drug therapy; Z21 Asymptomatic human immunodeficiency virus [HIV] infection status; Z79.4 Long term (current) use of insulin; Z20.822 Contact with and (suspected) exposure to COVID-19
CPT/HCPCS: Q9967; S0164

== ENCOUNTER 2022-06-12 00:29 | Emergency (ER) | payer MEDICARE ==
[~2022-06-12] VITALS: Ht 162.6 cm; Wt 90.0 kg
[2022-06-12] VITALS (11 sets, daily range): BP systolic 119–153; BP diastolic 68–115
[~2022-06-12 00:29] MED LIST changes: +KEFLEX500 MG PO; +ONDANSETRON4 MG PO
[2022-06-12 01:10] LABS: IMMATURE GRANULOCYTES 1.1 % (0.0-5.0); MEAN CELL VOLUME 82.2 fL CALC (80.0-100.0); MEAN CORPUSCULAR HGB 26.4 pG CALC (26.0-32.0); MEAN CORPUSCULAR HGB CONC 32.1 g/dL CAL (32.0-36.0); NEUT# 12.15 thou/uL (1.82-7.42); RED BLOOD COUNT 4.89 mill/uL (4.70-6.10); RED CELL DISTRI WIDTH 14.5 % (11.5-15.5)
[2022-06-12 01:15] LABS: HEMATOCRIT 40.2 % (39.0-50.0); HEMOGLOBIN 12.9 g/dl (14.0-18.0)
[2022-06-12 01:26] LABS: ALBUMIN 4.6 g/dL (3.2-5.0); ALKALINE PHOSPHATASE 144 u/l (38-126); AMYLASE 121 u/l (30-110); ANION GAP 18 (6-22 (CALC)); BUN 18 mg/dL (9-20); BUN/CREATININE RATIO 27 (12-20 (CALC)); CARBON DIOXIDE 21 mmol/l (22-30); CHLORIDE 100 mmol/l (95-108); CREATININE 0.7 mg/dL (0.7-1.3); GFR FOR AFR.AMER. > 60 ML/MIN (>=60 (CALC)); GFR OTHER RACES > 60 ML/MIN (>=60 (CALC)); LIPASE 62 u/l (23-300); POTASSIUM 3.4 mmol/l (3.5-5.1); SGOT/AST 27 u/l (17-59); SODIUM 137 mmol/l (137-146)
[2022-06-12 01:27] LABS: BILIRUBIN, TOTAL 0.7 mg/dL (0.0-1.4); TOTAL PROTEIN 8.8 g/dL (6.3-8.2)
[2022-06-12 01:39] LABS: MYOGLOBIN 28 ng/mL (0 - 121)
[2022-06-12 02:09] LABS: URINE BLOOD DIPSTICK NEGATIVE (NEGATIVE); URINE COLOR YELLOW; URINE GLUCOSE - DIPSTICK 500 mg/dL (NEGATIVE); URINE KETONE TRACE mg/dL (NEGATIVE); URINE LEUK ESTERASE NEGATIVE (NEGATIVE); URINE PROTEIN - DIPSTICK 100 mg/dL (NEG-TRACE); URINE SPECIFIC GRAVITY >=1.030
[2022-06-12 02:13] LABS: URINE BILIRUBIN - DIPSTICK SMALL (NEGATIVE); URINE NITRITE - DIPSTICK NEGATIVE (Negative)
[2022-06-12 02:15] LABS: URINE BACTERIA FEW hpf; URINE EPITHELIAL CELLS FEW EPI/hpf (0-FEW); URINE MUCUS MODERATE hpf (NONE-FEW); URINE RBC 0-2 RBC/hpf (0-5); URINE WBC 0-2 WBC/hpf (0-5)
[2022-06-12] MEDS ORDERED: PERCOCET 10/31 COMBO PO ×2 (02:27→02:28)
[2022-06-12] MEDS ORDERED: KEPPRA500 M2 PO (02:30)
== END 2022-06-12 03:03 | disposition home or self-care (01) ==
LOC: ED 00:29
PROVIDERS: Emergency Medicine
DX: M54.9 Dorsalgia, unspecified (principal); M62.830 Muscle spasm of back; E11.9 Type 2 diabetes mellitus without complications; I10 Essential (primary) hypertension; C71.9 Malignant neoplasm of brain, unspecified; R56.9 Unspecified convulsions; Z92.21 Personal history of antineoplastic chemotherapy; T50.916A Underdosing of multiple unspecified drugs, medicaments and biological substances, initial encounter; Z91.138 Patient's unintentional underdosing of medication regimen for other reason
CPT/HCPCS: J1953

== ENCOUNTER 2022-06-30 16:11 | Emergency (ER) | payer MEDICARE ==
[2022-06-30] VITALS (23 sets, daily range): BP systolic 69–179; BP diastolic 53–113
[~2022-06-30] VITALS: Ht 162.6 cm; Wt 90.5 kg
[~2022-06-30 16:11] MED LIST changes: +KEPPRA500 M2 PO; +PERCOCET 10/31 COMBO PO
[2022-06-30 17:10] LABS: HEMATOCRIT 36.9 % (39.0-50.0); HEMOGLOBIN 11.8 g/dl (14.0-18.0); IMMATURE GRANULOCYTES 1.4 % (0.0-5.0); MEAN CELL VOLUME 80.7 fL CALC (80.0-100.0); MEAN CORPUSCULAR HGB 25.8 pG CALC (26.0-32.0); NEUT# 7.29 thou/uL (1.82-7.42); RED BLOOD COUNT 4.57 mill/uL (4.70-6.10); RED CELL DISTRI WIDTH 14.7 % (11.5-15.5)
[2022-06-30 17:25] LABS: ALKALINE PHOSPHATASE 97 u/l (38-126); ANION GAP 13 (6-22 (CALC)); BUN 11 mg/dL (9-20); BUN/CREATININE RATIO 24 (12-20 (CALC)); CARBON DIOXIDE 21 mmol/l (22-30); CHLORIDE 107 mmol/l (95-108); CREATININE 0.5 mg/dL (0.7-1.3); GFR FOR AFR.AMER. > 60 ML/MIN (>=60 (CALC)); GFR OTHER RACES > 60 ML/MIN (>=60 (CALC)); POTASSIUM 3.5 mmol/l (3.5-5.1); SGOT/AST 28 u/l (17-59); SODIUM 137 mmol/l (137-146)
[2022-06-30 17:28] LABS: ALBUMIN 3.3 g/dL (3.2-5.0); BILIRUBIN, TOTAL 0.4 mg/dL (0.0-1.4); TOTAL PROTEIN 6.6 g/dL (6.3-8.2)
[2022-06-30 17:37] LABS: URINE BILIRUBIN - DIPSTICK NEGATIVE (NEGATIVE); URINE BLOOD DIPSTICK LARGE (NEGATIVE); URINE COLOR RED; URINE GLUCOSE - DIPSTICK NEGATIVE (NEGATIVE); URINE KETONE NEGATIVE (NEGATIVE); URINE LEUK ESTERASE NEGATIVE (NEGATIVE); URINE NITRITE - DIPSTICK NEGATIVE (Negative); URINE PH 6.5 (4.5-8.0); URINE PROTEIN - DIPSTICK 100 mg/dL (NEG-TRACE); URINE SPECIFIC GRAVITY 1.025; URINE UROBILINOGEN - DIPSTICK 0.2 E.U./dL (0.2)
[2022-06-30 17:38] LABS: URINE RBC TNTC RBC/hpf (0-5); URINE SQUAMOUS EPITHELIAL CELL RARE EPI/hpf (0-FEW); URINE WBC 0-2 WBC/hpf (0-5)
[2022-06-30] MEDS ORDERED: TAMSULOSIN0.4 MG PO (21:24)
== END 2022-06-30 22:08 | disposition home or self-care (01) ==
LOC: ED 16:11
PROVIDERS: Family Medicine
DX: R56.9 Unspecified convulsions (principal); M54.59 Other low back pain; R31.9 Hematuria, unspecified; I11.0 Hypertensive heart disease with heart failure; I50.9 Heart failure, unspecified; E11.9 Type 2 diabetes mellitus without complications; C71.9 Malignant neoplasm of brain, unspecified; Z87.442 Personal history of urinary calculi; Z79.84 Long term (current) use of oral hypoglycemic drugs; Z79.4 Long term (current) use of insulin; Z79.899 Other long term (current) drug therapy

== ENCOUNTER 2022-07-26 01:35 | Emergency (ER) | payer MEDICARE ==
[2022-07-26] VITALS (10 sets, daily range): BP systolic 105–158; BP diastolic 60–89
[~2022-07-26] VITALS: Ht 162.6 cm; Wt 89.5 kg
[2022-07-26 02:03] LABS: HEMATOCRIT 37.3 % (39.0-50.0); HEMOGLOBIN 12.1 g/dl (14.0-18.0); IMMATURE GRANULOCYTES 1.6 % (0.0-5.0); MEAN CELL VOLUME 79.7 fL CALC (80.0-100.0); MEAN CORPUSCULAR HGB 25.9 pG CALC (26.0-32.0); MEAN CORPUSCULAR HGB CONC 32.4 g/dL CAL (32.0-36.0); NEUT# 12.19 thou/uL (1.82-7.42); RED BLOOD COUNT 4.68 mill/uL (4.70-6.10); RED CELL DISTRI WIDTH 14.8 % (11.5-15.5)
[2022-07-26 02:19] LABS: BILIRUBIN, TOTAL 0.4 mg/dL (0.0-1.4); BUN 26 mg/dL (9-20); CARBON DIOXIDE 23 mmol/l (22-30); CHLORIDE 97 mmol/l (95-108); CPK 76 u/l (52-200); MAGNESIUM 1.4 mg/dL (1.6-2.3); SODIUM 138 mmol/l (137-146)
[2022-07-26 02:23] LABS: ALBUMIN 4.8 g/dL (3.2-5.0); ALKALINE PHOSPHATASE 164 u/l (38-126); ANION GAP 23 (6-22 (CALC)); BUN/CREATININE RATIO 13 (12-20 (CALC)); GFR FOR AFR.AMER. 42 ML/MIN (>=60 (CALC)); GFR OTHER RACES 35 ML/MIN (>=60 (CALC)); POTASSIUM 4.5 mmol/l (3.5-5.1); SGOT/AST 51 u/l (17-59); TOTAL PROTEIN 9.3 g/dL (6.3-8.2)
[2022-07-26 02:25] LABS: ACT PARTIAL THROMBO TIME 24.1 SECONDS (20.0-32.5); INTERNATIONAL NORMALIZED RATIO 1.1 RATIO (0.7-1.3); PROTHROMBIN TIME 11.3 SECONDS (9.0-12.5)
[2022-07-26] MEDS ORDERED: PREDNISONE50 MG PO (02:46)
[2022-07-26] MEDS ORDERED: VIBRAMYCIN100 M2 PO (02:46)
== END 2022-07-26 04:59 | disposition home or self-care (01) ==
LOC: ED 01:35
PROVIDERS: Family Medicine
DX: J44.1 Chronic obstructive pulmonary disease with (acute) exacerbation (principal); J18.9 Pneumonia, unspecified organism; J44.0 Chronic obstructive pulmonary disease with (acute) lower respiratory infection; G89.29 Other chronic pain; I10 Essential (primary) hypertension; E11.9 Type 2 diabetes mellitus without complications; C85.90 Non-Hodgkin lymphoma, unspecified, unspecified site; C71.9 Malignant neoplasm of brain, unspecified; Z92.21 Personal history of antineoplastic chemotherapy; Z79.84 Long term (current) use of oral hypoglycemic drugs; Z79.4 Long term (current) use of insulin; Z20.822 Contact with and (suspected) exposure to COVID-19

== ENCOUNTER 2022-07-30 09:23 | Inpatient (IN) | payer MEDICARE ==
[~2022-07-30] VITALS: Ht 165.1 cm; Wt 90.0 kg
[2022-07-30] VITALS (11 sets, daily range): BP systolic 106–172; BP diastolic 61–124
[~2022-07-30 09:23] MED LIST changes: +PREDNISONE50 MG PO; +VIBRAMYCIN100 M2 PO
[2022-07-30 09:51] LABS: HEMATOCRIT 35.6 % (39.0-50.0); HEMOGLOBIN 11.7 g/dl (14.0-18.0); IMMATURE GRANULOCYTES 1.2 % (0.0-5.0); MEAN CELL VOLUME 79.8 fL CALC (80.0-100.0); MEAN CORPUSCULAR HGB 26.2 pG CALC (26.0-32.0); MEAN CORPUSCULAR HGB CONC 32.9 g/dL CAL (32.0-36.0); NEUT# 7.72 thou/uL (1.82-7.42); RED BLOOD COUNT 4.46 mill/uL (4.70-6.10); RED CELL DISTRI WIDTH 14.6 % (11.5-15.5)
[2022-07-30 10:06] LABS: ALKALINE PHOSPHATASE 126 u/l (38-126); ANION GAP 11 (6-22 (CALC)); BUN 16 mg/dL (9-20); CARBON DIOXIDE 22 mmol/l (22-30); CHLORIDE 103 mmol/l (95-108); POTASSIUM 3.7 mmol/l (3.5-5.1); SGOT/AST 24 u/l (17-59); SODIUM 132 mmol/l (137-146)
[2022-07-30 10:09] LABS: ALBUMIN 3.6 g/dL (3.2-5.0); BILIRUBIN, TOTAL 0.6 mg/dL (0.0-1.4); BUN/CREATININE RATIO 27 (12-20 (CALC)); CREATININE 0.6 mg/dL (0.7-1.3); GFR FOR AFR.AMER. > 60 ML/MIN (>=60 (CALC)); GFR OTHER RACES > 60 ML/MIN (>=60 (CALC)); TOTAL PROTEIN 6.7 g/dL (6.3-8.2)
[2022-07-30 14:19] LABS: URINE BILIRUBIN - DIPSTICK NEGATIVE (NEGATIVE); URINE BLOOD DIPSTICK NEGATIVE (NEGATIVE); URINE COLOR YELLOW; URINE GLUCOSE - DIPSTICK >=1000 mg/dL (NEGATIVE); URINE KETONE TRACE mg/dL (NEGATIVE); URINE LEUK ESTERASE NEGATIVE (NEGATIVE); URINE PH 6.5 (4.5-8.0); URINE PROTEIN - DIPSTICK NEGATIVE (NEG-TRACE); URINE UROBILINOGEN - DIPSTICK 0.2 E.U./dL (0.2)
[2022-07-30 14:21] LABS: URINE NITRITE - DIPSTICK NEGATIVE (Negative)
[2022-07-30] MEDS ORDERED: KETOCONAZOLE2 % EX (17:01)
[2022-07-31 04:44] VITALS: BP 125/64
[2022-07-31 04:47] LABS: HEMATOCRIT 35.7 % (39.0-50.0); HEMOGLOBIN 11.4 g/dl (14.0-18.0); IMMATURE GRANULOCYTES 1.3 % (0.0-5.0); MEAN CELL VOLUME 79.5 fL CALC (80.0-100.0); MEAN CORPUSCULAR HGB 25.4 pG CALC (26.0-32.0); MEAN CORPUSCULAR HGB CONC 31.9 g/dL CAL (32.0-36.0); NEUT# 14.79 thou/uL (1.82-7.42); RED BLOOD COUNT 4.49 mill/uL (4.70-6.10); RED CELL DISTRI WIDTH 14.4 % (11.5-15.5)
[2022-07-31 05:02] LABS: ALKALINE PHOSPHATASE 148 u/l (38-126); ANION GAP 16 (6-22 (CALC)); BUN 21 mg/dL (9-20); BUN/CREATININE RATIO 26 (12-20 (CALC)); CARBON DIOXIDE 22 mmol/l (22-30); CHLORIDE 100 mmol/l (95-108); CREATININE 0.8 mg/dL (0.7-1.3); GFR FOR AFR.AMER. > 60 ML/MIN (>=60 (CALC)); GFR OTHER RACES > 60 ML/MIN (>=60 (CALC)); MAGNESIUM 1.4 mg/dL (1.6-2.3); SGOT/AST 22 u/l (17-59); SODIUM 134 mmol/l (137-146); TOTAL PROTEIN 6.9 g/dL (6.3-8.2)
[2022-07-31 05:06] LABS: BILIRUBIN, TOTAL 0.1 mg/dL (0.0-1.4)
[2022-07-31 06:09] VITALS: BP 118/68
[2022-07-31 09:00] VITALS: BP 128/69
[2022-07-31 10:16] VITALS: BP 142/67
[2022-07-31 15:15] VITALS: BP 117/55
[2022-07-31 19:18] VITALS: BP 99/52
[2022-08-01] VITALS (8 sets, daily range): BP systolic 112–148; BP diastolic 61–82
[2022-08-01 04:41] LABS: HEMATOCRIT 34.3 % (39.0-50.0); HEMOGLOBIN 11.1 g/dl (14.0-18.0); MEAN CELL VOLUME 80.1 fL CALC (80.0-100.0); MEAN CORPUSCULAR HGB 25.9 pG CALC (26.0-32.0); MEAN CORPUSCULAR HGB CONC 32.4 g/dL CAL (32.0-36.0); RED BLOOD COUNT 4.28 mill/uL (4.70-6.10)
[2022-08-01 04:50] LABS: BUN 20 mg/dL (9-20); BUN/CREATININE RATIO 23 (12-20 (CALC)); CARBON DIOXIDE 23 mmol/l (22-30); CHLORIDE 99 mmol/l (95-108); CREATININE 0.8 mg/dL (0.7-1.3); GFR FOR AFR.AMER. > 60 ML/MIN (>=60 (CALC)); GFR OTHER RACES > 60 ML/MIN (>=60 (CALC)); SODIUM 134 mmol/l (137-146)
[2022-08-01 05:08] LABS: ANION GAP 17 (6-22 (CALC))
[2022-08-01] MEDS ORDERED: SYMTUZA 800-1501 TAB PO (15:33)
[2022-08-02 03:30] VITALS: BP 134/77
[2022-08-02 03:33] VITALS: BP 134/77
[2022-08-02 10:21] VITALS: BP 114/62
[2022-08-02 15:31] VITALS: BP 110/57
[2022-08-02 18:39] VITALS: BP 118/62
[2022-08-03] VITALS (9 sets, daily range): BP systolic 112–148; BP diastolic 58–85
[2022-08-03 05:27] LABS: HEMOGLOBIN 10.7 g/dl (14.0-18.0); MEAN CELL VOLUME 81.3 fL CALC (80.0-100.0); MEAN CORPUSCULAR HGB 26.4 pG CALC (26.0-32.0); MEAN CORPUSCULAR HGB CONC 32.4 g/dL CAL (32.0-36.0); RED BLOOD COUNT 4.06 mill/uL (4.70-6.10); RED CELL DISTRI WIDTH 15.3 % (11.5-15.5)
[2022-08-03 05:57] LABS: ANION GAP 18 (6-22 (CALC)); BUN 19 mg/dL (9-20); BUN/CREATININE RATIO 27 (12-20 (CALC)); CARBON DIOXIDE 25 mmol/l (22-30); CHLORIDE 96 mmol/l (95-108); CREATININE 0.7 mg/dL (0.7-1.3); GFR FOR AFR.AMER. > 60 ML/MIN (>=60 (CALC)); GFR OTHER RACES > 60 ML/MIN (>=60 (CALC)); MAGNESIUM 1.5 mg/dL (1.6-2.3); SODIUM 133 mmol/l (137-146)
[2022-08-03 06:24] LABS: POTASSIUM 5.5 mmol/l (3.5-5.1)
[2022-08-04] VITALS (8 sets, daily range): BP systolic 122–167; BP diastolic 62–92
[2022-08-04 07:00] LABS: HEMATOCRIT 33.6 % (39.0-50.0); HEMOGLOBIN 10.9 g/dl (14.0-18.0); MEAN CELL VOLUME 80.6 fL CALC (80.0-100.0); MEAN CORPUSCULAR HGB 26.1 pG CALC (26.0-32.0); MEAN CORPUSCULAR HGB CONC 32.4 g/dL CAL (32.0-36.0); RED BLOOD COUNT 4.17 mill/uL (4.70-6.10); RED CELL DISTRI WIDTH 15.6 % (11.5-15.5)
[2022-08-04 07:18] LABS: ALBUMIN 3.9 g/dL (3.2-5.0); ALKALINE PHOSPHATASE 115 u/l (38-126); ANION GAP 13 (6-22 (CALC)); BUN 21 mg/dL (9-20); BUN/CREATININE RATIO 30 (12-20 (CALC)); CARBON DIOXIDE 30 mmol/l (22-30); CHLORIDE 92 mmol/l (95-108); CREATININE 0.7 mg/dL (0.7-1.3); GFR FOR AFR.AMER. > 60 ML/MIN (>=60 (CALC)); GFR OTHER RACES > 60 ML/MIN (>=60 (CALC)); POTASSIUM 4.4 mmol/l (3.5-5.1); SGOT/AST 17 u/l (17-59); SODIUM 131 mmol/l (137-146); TOTAL PROTEIN 6.6 g/dL (6.3-8.2)
[2022-08-04 07:21] LABS: BILIRUBIN, TOTAL 0.3 mg/dL (0.0-1.4)
[2022-08-05] VITALS (7 sets, daily range): BP systolic 112–125; BP diastolic 52–76
[2022-08-05 06:04] LABS: ANION GAP 15 (6-22 (CALC)); BUN 23 mg/dL (9-20); BUN/CREATININE RATIO 30 (12-20 (CALC)); CARBON DIOXIDE 26 mmol/l (22-30); CHLORIDE 94 mmol/l (95-108); CREATININE 0.8 mg/dL (0.7-1.3); GFR FOR AFR.AMER. > 60 ML/MIN (>=60 (CALC)); GFR OTHER RACES > 60 ML/MIN (>=60 (CALC)); MAGNESIUM 1.2 mg/dL (1.6-2.3); POTASSIUM 4.5 mmol/l (3.5-5.1); SODIUM 130 mmol/l (137-146)
[2022-08-06] VITALS (10 sets, daily range): BP systolic 103–168; BP diastolic 59–85
[2022-08-07] VITALS (33 sets, daily range): BP systolic 71–168; BP diastolic 42–86
[2022-08-07 05:01] LABS: HEMATOCRIT 35.7 % (39.0-50.0); HEMOGLOBIN 11.6 g/dl (14.0-18.0); MEAN CELL VOLUME 82.1 fL CALC (80.0-100.0); MEAN CORPUSCULAR HGB 26.7 pG CALC (26.0-32.0); MEAN CORPUSCULAR HGB CONC 32.5 g/dL CAL (32.0-36.0); RED BLOOD COUNT 4.35 mill/uL (4.70-6.10)
[2022-08-07 05:25] LABS: BUN 28 mg/dL (9-20); BUN/CREATININE RATIO 32 (12-20 (CALC)); CARBON DIOXIDE 23 mmol/l (22-30); CHLORIDE 99 mmol/l (95-108); CREATININE 0.9 mg/dL (0.7-1.3); GFR FOR AFR.AMER. > 60 ML/MIN (>=60 (CALC)); GFR OTHER RACES > 60 ML/MIN (>=60 (CALC)); SODIUM 133 mmol/l (137-146)
[2022-08-07 05:32] LABS: ANION GAP 17 (6-22 (CALC)); MAGNESIUM 1.7 mg/dL (1.6-2.3); POTASSIUM 5.5 mmol/l (3.5-5.1)
[2022-08-07 19:47] LABS: HEMATOCRIT 34.3 % (39.0-50.0); HEMOGLOBIN 11.1 g/dl (14.0-18.0); IMMATURE GRANULOCYTES 2.8 % (0.0-5.0); MEAN CELL VOLUME 82.5 fL CALC (80.0-100.0); MEAN CORPUSCULAR HGB 26.7 pG CALC (26.0-32.0); MEAN CORPUSCULAR HGB CONC 32.4 g/dL CAL (32.0-36.0); NEUT# 11.8 thou/uL (1.82-7.42); RED BLOOD COUNT 4.16 mill/uL (4.70-6.10); RED CELL DISTRI WIDTH 16.7 % (11.5-15.5)
[2022-08-07 20:07] LABS: ALBUMIN 3.5 g/dL (3.2-5.0); BILIRUBIN, TOTAL 0.3 mg/dL (0.0-1.4); C-REACTIVE PROTEIN 4.8 mg/dL (0-0.9); CREATININE 1.8 mg/dL (0.7-1.3); TOTAL PROTEIN 6.2 g/dL (6.3-8.2)
[2022-08-07 20:17] LABS: POTASSIUM 5.7 mmol/l (3.5-5.1)
[2022-08-08] VITALS: BP 101/72
[2022-08-08 00:15] VITALS: BP 105/82
[2022-08-08 00:30] VITALS: BP 95/71
[2022-08-08 00:45] VITALS: BP 109/70
[2022-08-08 01:11] VITALS: BP 105/72
== END 2022-08-08 01:05 | disposition short-term general hospital (02) | DRG 190 ==
LOC: EDPENDDISTM → EDPENDDISDT → ED 09:23 → ED-I 11:00 → ED 11:13 → MS2 11:14 → ED 11:21 → ED-I 11:21 → MS2 07-31 18:25 → ICU 07-31 18:25 → MS2 07-31 18:26 → ICU 08-07 20:10
PROVIDERS: Family Medicine; ADMIT Internal Medicine; ATTEND Internal Medicine
PROC: 0T9B70Z Drainage of Bladder with Drainage Device, Via Natural or Artificial Opening (ICD-10-PCS; principal; 2022-08-07)
DX: J44.1 Chronic obstructive pulmonary disease with (acute) exacerbation (principal); I21.4 Non-ST elevation (NSTEMI) myocardial infarction; J18.9 Pneumonia, unspecified organism; J96.00 Acute respiratory failure, unspecified whether with hypoxia or hypercapnia; C21.0 Malignant neoplasm of anus, unspecified; C79.9 Secondary malignant neoplasm of unspecified site; E87.3 Alkalosis; J45.901 Unspecified asthma with (acute) exacerbation; R78.81 Bacteremia; G93.40 Encephalopathy, unspecified; I11.0 Hypertensive heart disease with heart failure; I50.9 Heart failure, unspecified; I25.10 Atherosclerotic heart disease of native coronary artery without angina pectoris; C61 Malignant neoplasm of prostate; G93.9 Disorder of brain, unspecified; G89.4 Chronic pain syndrome; E11.65 Type 2 diabetes mellitus with hyperglycemia; F32.A Depression, unspecified; R19.7 Diarrhea, unspecified; E03.9 Hypothyroidism, unspecified; G40.909 Epilepsy, unspecified, not intractable, without status epilepticus; Z79.4 Long term (current) use of insulin; Z86.74 Personal history of sudden cardiac arrest; Z92.21 Personal history of antineoplastic chemotherapy; Z87.442 Personal history of urinary calculi; Z79.899 Other long term (current) drug therapy; Z21 Asymptomatic human immunodeficiency virus [HIV] infection status; Z86.19 Personal history of other infectious and parasitic diseases; Z79.891 Long term (current) use of opiate analgesic; Z92.3 Personal history of irradiation; Z95.828 Presence of other vascular implants and grafts; Z86.711 Personal history of pulmonary embolism; Z79.01 Long term (current) use of anticoagulants; Z20.822 Contact with and (suspected) exposure to COVID-19
CPT/HCPCS: J0692; J1650; J1953; J3475; Q9967; S0164

== ENCOUNTER 2022-11-05 08:18 | Emergency (ER) | payer MEDICARE, MEDICAID ==
[2022-11-05] VITALS (12 sets, daily range): BP systolic 111–154; BP diastolic 60–98
[~2022-11-05] VITALS: Ht 165.1 cm; Wt 90.7 kg
[~2022-11-05 08:18] MED LIST changes: +KETOCONAZOLE2 % EX
[2022-11-05 08:53] LABS: BASO% 0.5 % (0-3); HEMATOCRIT 38.2 % (39.0-50.0); IMMATURE GRANULOCYTES 1.3 % (0.0-5.0); LYMPH% 19.8 % (15-41); MEAN CELL VOLUME 78.4 fL CALC (80.0-100.0); MEAN CORPUSCULAR HGB 24.6 pG CALC (26.0-32.0); MEAN CORPUSCULAR HGB CONC 31.4 g/dL CAL (32.0-36.0); NEUT# 7.12 thou/uL (1.82-7.42); NEUT% 69.4 % (42-76); RED BLOOD COUNT 4.87 mill/uL (4.70-6.10); RED CELL DISTRI WIDTH 15.9 % (11.5-15.5)
[2022-11-05 09:14] LABS: ALBUMIN 4.8 g/dL (3.2-5.0); ALKALINE PHOSPHATASE 149 u/l (38-126); ANION GAP 14 (6-22 (CALC)); BILIRUBIN, TOTAL 0.4 mg/dL (0.2-1.3); BUN 18 mg/dL (9-20); BUN/CREATININE RATIO 28 (12-20 (CALC)); CHLORIDE 102 mmol/l (95-108); CREATININE 0.6 mg/dL (0.7-1.3); GFR FOR AFR.AMER. > 60 ML/MIN (>=60 (CALC)); GFR OTHER RACES > 60 ML/MIN (>=60 (CALC)); LIPASE 94 u/l (23-300); POTASSIUM 4.2 mmol/l (3.5-5.1); SGOT/AST 23 u/l (17-59); SODIUM 139 mmol/l (137-146); TOTAL PROTEIN 8.7 g/dL (6.3-8.2)
[2022-11-05 09:17] LABS: CARBON DIOXIDE 27 mmol/l (22-30)
[2022-11-05 09:57] LABS: URINE BILIRUBIN - DIPSTICK NEGATIVE (NEGATIVE); URINE BLOOD DIPSTICK NEGATIVE (NEGATIVE); URINE CLARITY CLEAR; URINE COLOR YELLOW; URINE GLUCOSE - DIPSTICK NEGATIVE (NEGATIVE); URINE KETONE TRACE mg/dL (NEGATIVE); URINE LEUK ESTERASE NEGATIVE (Negative); URINE NITRITE - DIPSTICK NEGATIVE (Negative); URINE PH 5.5 (4.5-8.0); URINE PROTEIN - DIPSTICK 100 mg/dL (NEG-TRACE); URINE SPECIFIC GRAVITY >=1.030; URINE UROBILINOGEN - DIPSTICK 0.2 E.U./dL (0.2)
[2022-11-05 10:07] LABS: URINE RBC 0-2 RBC/hpf (0-5); URINE WBC 0-2 WBC/hpf (0-5)
== END 2022-11-05 16:17 | disposition left against medical advice (07) ==
LOC: ED 08:18
PROVIDERS: Emergency Medicine
DX: R07.9 Chest pain, unspecified (principal); R06.00 Dyspnea, unspecified; E11.9 Type 2 diabetes mellitus without complications; I10 Essential (primary) hypertension; C71.9 Malignant neoplasm of brain, unspecified; C85.90 Non-Hodgkin lymphoma, unspecified, unspecified site; I25.2 Old myocardial infarction; Z85.048 Personal history of other malignant neoplasm of rectum, rectosigmoid junction, and anus; Z79.84 Long term (current) use of oral hypoglycemic drugs; Z79.4 Long term (current) use of insulin; Z53.29 Procedure and treatment not carried out because of patient's decision for other reasons
CPT/HCPCS: Q9967

== ENCOUNTER 2022-11-10 22:59 | Emergency (ER) | payer MEDICARE, MEDICAID ==
[~2022-11-10] VITALS: Ht 165.1 cm; Wt 89.8 kg
[2022-11-11 01:10] VITALS: BP 128/70
== END 2022-11-11 01:12 | disposition home or self-care (01) ==
LOC: ED 22:59
DX: K04.7 Periapical abscess without sinus (principal); K02.9 Dental caries, unspecified; I10 Essential (primary) hypertension; E11.9 Type 2 diabetes mellitus without complications; C85.90 Non-Hodgkin lymphoma, unspecified, unspecified site; Z79.84 Long term (current) use of oral hypoglycemic drugs; Z79.4 Long term (current) use of insulin
CPT/HCPCS: J0561

== ENCOUNTER 2023-01-26 22:09 | Emergency (ER) | payer MEDICARE, MEDICAID ==
[~2023-01-26] VITALS: Ht 165.1 cm; Wt 97.8 kg
[2023-01-26 22:18] VITALS: BP 143/81
[2023-01-26 22:30] VITALS: BP 147/70
[2023-01-26 22:45] VITALS: BP 124/76
[2023-01-26 23:00] VITALS: BP 122/72
[2023-01-26 23:27] LABS: BASO% 0.4 % (0-3); EOS% 2.4 % (0-8); HEMATOCRIT 33.7 % (39.0-50.0); HEMOGLOBIN 10.8 g/dl (14.0-18.0); IMMATURE GRANULOCYTES 1.8 % (0.0-5.0); LYMPH% 11.3 % (15-41); MEAN CORPUSCULAR HGB 27.1 pG CALC (26.0-32.0); MONO% 11.3 % (2-13); NEUT# 6.58 thou/uL (1.82-7.42); NEUT% 72.8 % (42-76); RED BLOOD COUNT 3.98 mill/uL (4.70-6.10); RED CELL DISTRI WIDTH 15.4 % (11.5-15.5)
[2023-01-26 23:33] VITALS: BP 141/101
[2023-01-26 23:36] LABS: ALBUMIN 4.1 g/dL (3.2-5.0); ALKALINE PHOSPHATASE 127 u/l (38-126); ANION GAP 13 (6-22 (CALC)); BILIRUBIN, TOTAL 0.4 mg/dL (0.2-1.3); BUN 19 mg/dL (9-20); BUN/CREATININE RATIO 30 (12-20 (CALC)); CARBON DIOXIDE 25 mmol/l (22-30); CHLORIDE 103 mmol/l (95-108); CREATININE 0.6 mg/dL (0.7-1.3); GFR FOR AFR.AMER. > 60 ML/MIN (>=60 (CALC)); GFR OTHER RACES > 60 ML/MIN (>=60 (CALC)); POTASSIUM 4.6 mmol/l (3.5-5.1); SGOT/AST 22 u/l (17-59); SODIUM 136 mmol/l (137-146); TOTAL PROTEIN 7.6 g/dL (6.3-8.2)
[2023-01-26 23:45] LABS: MEAN CELL VOLUME 84.7 fL CALC (80.0-100.0)
[2023-01-26 23:48] VITALS: BP 124/102
[2023-01-27] MEDS ORDERED: AMOX/K CLAV875 M1 PO (00:14)
[2023-01-27] MEDS ORDERED: LORTAB 1010 MG PO (00:14)
[2023-01-27 00:28] VITALS: BP 124/90
== END 2023-01-27 00:35 | disposition home or self-care (01) ==
LOC: ED 22:09
PROVIDERS: Emergency Medicine
DX: L03.114 Cellulitis of left upper limb (principal); I10 Essential (primary) hypertension; E11.9 Type 2 diabetes mellitus without complications; C71.9 Malignant neoplasm of brain, unspecified; Z79.84 Long term (current) use of oral hypoglycemic drugs; Z79.4 Long term (current) use of insulin; R06.02 Shortness of breath

== ENCOUNTER 2023-02-09 13:40 | Observation (INO) | payer MEDICARE ==
[2023-02-09] VITALS (120 sets, daily range): BP systolic 97–142; BP diastolic 55–100
[~2023-02-09] VITALS: Ht 165.1 cm; Wt 95.2 kg
[~2023-02-09 13:40] MED LIST changes: +AMOX/K CLAV875 M1 PO; +LORTAB 1010 MG PO
[2023-02-09 14:38] LABS: BASO% 0.5 % (0-3); EOS% 1.4 % (0-8); HEMATOCRIT 45.8 % (39.0-50.0); HEMOGLOBIN 14.6 g/dl (14.0-18.0); IMMATURE GRANULOCYTES 0.7 % (0.0-5.0); LYMPH% 17.2 % (15-41); MEAN CELL VOLUME 86.6 fL CALC (80.0-100.0); MEAN CORPUSCULAR HGB 27.6 pG CALC (26.0-32.0); MEAN CORPUSCULAR HGB CONC 31.9 g/dL CAL (32.0-36.0); MONO% 7.7 % (2-13); NEUT# 6.77 thou/uL (1.82-7.42); NEUT% 72.5 % (42-76); RED BLOOD COUNT 5.29 mill/uL (4.70-6.10); RED CELL DISTRI WIDTH 15.5 % (11.5-15.5)
[2023-02-09 14:53] LABS: ALBUMIN 4.8 g/dL (3.2-5.0); ALKALINE PHOSPHATASE 143 u/l (38-126); ANION GAP 16 (6-22 (CALC)); BUN 20 mg/dL (9-20); BUN/CREATININE RATIO 28 (12-20 (CALC)); CARBON DIOXIDE 21 mmol/l (22-30); CHLORIDE 107 mmol/l (95-108); CREATININE 0.7 mg/dL (0.7-1.3); GFR FOR AFR.AMER. > 60 ML/MIN (>=60 (CALC)); GFR OTHER RACES > 60 ML/MIN (>=60 (CALC)); POTASSIUM 4.8 mmol/l (3.5-5.1); SGOT/AST 29 u/l (17-59); SODIUM 139 mmol/l (137-146); TOTAL PROTEIN 8.5 g/dL (6.3-8.2)
[2023-02-09 14:59] LABS: BILIRUBIN, TOTAL 0.6 mg/dL (0.2-1.3)
[2023-02-09 15:05] LABS: D-DIMER 0.17 mg/L (0.19-0.60)
[2023-02-09 15:07] LABS: ACT PARTIAL THROMBO TIME 27.2 SECONDS (20.0-32.5)
--- NOTE | 2023-02-09 15:35 | NUR ---
PER MD REQUEST REPEAT EKG COMPLETED.
[2023-02-09 17:59] LABS: URINE BILIRUBIN - DIPSTICK NEGATIVE (NEGATIVE); URINE BLOOD DIPSTICK NEGATIVE (NEGATIVE); URINE COLOR YELLOW; URINE GLUCOSE - DIPSTICK NEGATIVE (NEGATIVE); URINE KETONE NEGATIVE (NEGATIVE); URINE LEUK ESTERASE NEGATIVE (NEGATIVE); URINE PROTEIN - DIPSTICK NEGATIVE (NEG-TRACE); URINE SPECIFIC GRAVITY 1.025; URINE UROBILINOGEN - DIPSTICK 0.2 E.U./dL (0.2)
[2023-02-09 18:01] LABS: URINE NITRITE - DIPSTICK NEGATIVE (Negative)
--- NOTE | 2023-02-09 19:10 | NUR ---
REPORT RECEIVED. PT REQUESTING MORE PAIN MEDICATIONS. PROVIDER DARBY MADE AWARE
--- NOTE | 2023-02-09 19:58 | NUR ---
UNABLE TO FIND A NEW IV SITE AT THIS TIME. PT IS CURRENTLY DRY HEAVING
--- NOTE | 2023-02-09 22:00 | NUR ---
RECIEVED REPORT FROM ED NURSE. PT TRANSPORTED VIA STRETCHER. NO ASSIST TO BED. FULL ASSESSMENT DONE ON PT. ORIENTATED PT TO ROOM AND TO CALL LIGHT SYSTEM. PT COMPLAINS OF PAIN STILL AND ADVISED THAT PAIN MED HAD JUST BEEN GIVEN. CALL LIGHT WITHIN REACH AND SAFETY PRECATIONS IN PLACE.
[2023-02-10] VITALS (11 sets, daily range): BP systolic 77–130; BP diastolic 43–78
--- NOTE | 2023-02-10 00:15 | NUR ---
PT IS SEATED UP IN BED. PT COMPLAINS OF PAIN AND ADVISED THAT MED WILL BE GIVEN SHORTLY. CALL LIGHT WITHIN REACH AND SAFETY PRECAUTIONS IN PLACE.
--- NOTE | 2023-02-10 04:10 | NUR ---
PT IS IN BED SITTING UP AND COMPLAINING OF PAIN. PT STATES THAT PAIN IS BETTER BUT IS STILL AROUND. CALL LIGHT WITHIN REACH AND SAFETY PRECAUTION IN PLACE.
--- NOTE | 2023-02-10 05:30 | NUR ---
PT STATES THAT HE HAD A "MINI SEIZURE".
[2023-02-10 06:00] LABS: CHOLESTEROL HDL RATIO 5.4 (<4.4 (CALC)); MAGNESIUM 1.7 mg/dL (1.6-2.3)
--- NOTE | 2023-02-10 07:24 | NUR ---
REPORT RECEIVED FROM PM RN. PT RESTING IN BED. ALL SAFETY MEASURES IN PLACE. VSS. NO NEEDS AT THIS TIME.
--- NOTE | 2023-02-10 10:02 | NUR ---
PT STATES THAT HE HAD A "RAFAEL-SEIZURE" WHILE LYING IN BED. PHYSICIAN NOTIFIED. NO NEW ORDERS.
--- NOTE | 2023-02-10 12:34 | NUR ---
PT RESTING IN BED. ATE LUNCH 100%. WENT TO CT SCAN WITHOUT INCIDENT. ALL SAFETY MEASURES IN PLACE. VSS.
--- NOTE | 2023-02-10 16:31 | NUR ---
PT WALKING AROUND IN ROOM TALKING TO ON PHONE. BLOOD SUGAR 125 AT 1600. NO NEEDS AT THIS TIME. PT IN GOOD SPIRITS. CONTINUES TO TELL STAFF THAT HE IS CURRENTLY HAVING RADIATION TREATMENTS. AOx4. VSS. NO SIGN OF SEIZURE ACTIVITY OR POST ICTAL STATE.
--- NOTE | 2023-02-10 17:23 | NUR ---
Check patient glucose meter check and it read 125 and the nurse was notified.
--- NOTE | 2023-02-10 19:50 | NUR ---
patient glucose was 204 nurse aware
--- NOTE | 2023-02-10 20:30 | NUR ---
PT AMBULATING IN ROOM, NO SIGNS OF DISTRESS NOTED, RESP EVEN AND UNLABORED. PT ALERT AND ORIENTED X3, ENCOURAGED PT TO GET IN BED, RECHECKED BP, PT REMAINS LOW, PT DENIES ANY C/O DIZZYNESS OR LIGHTHEADEDNESS. ENCOURAGED PT TO USE CALL LIGHT FOR ASSISTANCE. NOTIFIED OF BP, HELD TOPROL, DISCUSSED WITH PT, VERBALIZED UNDERSTANDING. PT IS ON 2L NC, STATES HE USES O2 AT HOME, SEIZURE PRECAUTIONS IN PLACE. ASSESSMENT COMPLETED, CALL LIGHT IN REACH, CONTINUE TO MONITOR.
[2023-02-11] VITALS (10 sets, daily range): BP systolic 102–132; BP diastolic 35–76
--- NOTE | 2023-02-11 | NUR ---
MD NOTIFIED OF PT BP, PT RESTING IN BED, ASYMPTOMATIC, ENCOURAGED PT TO REMAIN IN BED AND TO CALL FOR ASSISTANCE. ORDERS OBTAINED. DISCUSSED WITH PT, VERBALIZED UNDERSTANDING.
--- NOTE | 2023-02-11 04:43 | NUR ---
PT SITTING ON SIDE OF BED, BP RECHECKED, BP STABLE, NO SIGNS OF DISTRESS NOTED, RESP EVEN AND UNLABORED. ENCOURAGED PO INTAKE, WATER AND GINERALE PROVIDED. PT MEDICATED PER NOV, CALL LIGHT IN REACH,CONTINUE TO MONITOR.
[2023-02-11 05:50] LABS: HEMATOCRIT 41.7 % (39.0-50.0); HEMOGLOBIN 13.4 g/dl (14.0-18.0); MEAN CELL VOLUME 86.7 fL CALC (80.0-100.0); MEAN CORPUSCULAR HGB 27.9 pG CALC (26.0-32.0); MEAN CORPUSCULAR HGB CONC 32.1 g/dL CAL (32.0-36.0); RED BLOOD COUNT 4.81 mill/uL (4.70-6.10); RED CELL DISTRI WIDTH 15.1 % (11.5-15.5)
--- NOTE | 2023-02-11 07:00 | NUR ---
BEDSIDE REPORT RECEIVED FROM PM NURSE. VSS. ALL SAFETY MEASURES IN PLACE. NO NEEDS AT THIS TIME.
[2023-02-11 07:54] LABS: ALKALINE PHOSPHATASE 108 u/l (38-126); ANION GAP 13 (6-22 (CALC)); BILIRUBIN, TOTAL 0.7 mg/dL (0.2-1.3); BUN 28 mg/dL (9-20); BUN/CREATININE RATIO 27 (12-20 (CALC)); CARBON DIOXIDE 23 mmol/l (22-30); CHLORIDE 103 mmol/l (95-108); GFR FOR AFR.AMER. > 60 ML/MIN (>=60 (CALC)); GFR OTHER RACES > 60 ML/MIN (>=60 (CALC)); MAGNESIUM 1.5 mg/dL (1.6-2.3); POTASSIUM 4.9 mmol/l (3.5-5.1); SGOT/AST 29 u/l (17-59); SODIUM 134 mmol/l (137-146); TOTAL PROTEIN 7.1 g/dL (6.3-8.2)
--- NOTE | 2023-02-11 12:00 | NUR ---
PT PACING IN ROOM COMPLAINING OF FATIGUE, ALL OVER PAIN, SHORTNESS OF BREATH, ANXIETY. PT HELPED TO BED, OXYGEN CANNULA REPLACED ON PT AND COMFORT MEASURES INITIATED. VSS, ALL SAFETY MEASURES IN PLACE.
--- NOTE | 2023-02-11 20:10 | NUR ---
RECIEVED REPORT FROM DAYSHIFT NURSE. PT IS SITTING UP IN BED. ADVISED PT OF CHANGE OF NURSE FOR THE NIGHT AND PT AKNOWLEGED. PT STATES THAT HE FEELS BETTER TODAY. CALL LIGHT WITHIN REACH AND SAFETY PRECAUTIONS IN PLACE.
[2023-02-12 00:07] VITALS: BP 112/58
--- NOTE | 2023-02-12 00:10 | NUR ---
PT IS SITTING UP ON THE SIDE OF BED. PT IS STATING BEING THIRSTY AND WANTS SOMETHING COLD TO SLEEP. PT STATES THAT PAIN IS BETTER. CALL LIGHT WITHIN REACH AND SAFETY PRECAUTIONS IN PLACE.
--- NOTE | 2023-02-12 04:05 | NUR ---
PT IS SITTING ON SIDE OF BED. PT COMPLAINS OF GENERLIZED PAIN. CALL LIGHT WITHIN REACH AND SAFETY PRECAUTIONS IN PLACE.
[2023-02-12 04:06] VITALS: BP 106/53
[2023-02-12 05:03] LABS: HEMATOCRIT 35.8 % (39.0-50.0); HEMOGLOBIN 11.6 g/dl (14.0-18.0); MEAN CELL VOLUME 86.1 fL CALC (80.0-100.0); MEAN CORPUSCULAR HGB 27.9 pG CALC (26.0-32.0); MEAN CORPUSCULAR HGB CONC 32.4 g/dL CAL (32.0-36.0); RED BLOOD COUNT 4.16 mill/uL (4.70-6.10); RED CELL DISTRI WIDTH 14.8 % (11.5-15.5)
[2023-02-12 05:19] LABS: ALBUMIN 3.9 g/dL (3.2-5.0); ALKALINE PHOSPHATASE 133 u/l (38-126); ANION GAP 11 (6-22 (CALC)); BUN 16 mg/dL (9-20); BUN/CREATININE RATIO 20 (12-20 (CALC)); CARBON DIOXIDE 23 mmol/l (22-30); CHLORIDE 106 mmol/l (95-108); CREATININE 0.8 mg/dL (0.7-1.3); GFR FOR AFR.AMER. > 60 ML/MIN (>=60 (CALC)); GFR OTHER RACES > 60 ML/MIN (>=60 (CALC)); POTASSIUM 4.3 mmol/l (3.5-5.1); SGOT/AST 20 u/l (17-59); SODIUM 136 mmol/l (137-146); TOTAL PROTEIN 7.2 g/dL (6.3-8.2)
[2023-02-12 05:25] LABS: BILIRUBIN, TOTAL 0.3 mg/dL (0.2-1.3); MAGNESIUM 1.9 mg/dL (1.6-2.3)
[2023-02-12 06:24] VITALS: BP 129/69
--- NOTE | 2023-02-12 08:00 | NUR ---
PT SITTING UP ON SIDE OF BED, EATING BREAKFAST. ALERT AND OREINTED X3, C/O SIATIC PAIN AT 4/10 ON PAIN SCALE. PT HAS TELE ON WITH ALL LEADS ATTACHED. IV SITE TO RFA CLEAN AND INTACT WITH NS @ 100 ML/HR. PT AMBULATES WELL TO THE BATHROOM FOR TOILETING NEEDS. PT HAS PADDING ON BED FOR SEIZURE PRECAUTIONS. PT HAS CALL LIGHT WITHIN REACH AND SAFETY MEASURES IN PLACE AT THIS TIME.
[2023-02-12 08:41] VITALS: BP 131/74
[2023-02-12 08:45] VITALS: BP 131/74
[2023-02-12] MEDS ORDERED: AMOX/K CLAV875 M1 PO (09:20)
== END 2023-02-12 11:10 | disposition home or self-care (01) ==
LOC: ED 13:40 → ED-I 18:00 → ED 18:19 → MS2 18:20
PROVIDERS: Family Medicine; ADMIT Internal Medicine; ATTEND Internal Medicine
DX: R07.9 Chest pain, unspecified (principal); G40.909 Epilepsy, unspecified, not intractable, without status epilepticus; I95.9 Hypotension, unspecified; I10 Essential (primary) hypertension; E11.9 Type 2 diabetes mellitus without complications; I25.10 Atherosclerotic heart disease of native coronary artery without angina pectoris; J44.9 Chronic obstructive pulmonary disease, unspecified; E03.9 Hypothyroidism, unspecified; C21.0 Malignant neoplasm of anus, unspecified; C81.90 Hodgkin lymphoma, unspecified, unspecified site; D32.9 Benign neoplasm of meninges, unspecified; G89.29 Other chronic pain; F41.9 Anxiety disorder, unspecified; F17.200 Nicotine dependence, unspecified, uncomplicated; I25.2 Old myocardial infarction; Z79.4 Long term (current) use of insulin; Z79.899 Other long term (current) drug therapy; Z79.84 Long term (current) use of oral hypoglycemic drugs; Z21 Asymptomatic human immunodeficiency virus [HIV] infection status; Z92.3 Personal history of irradiation; Z92.21 Personal history of antineoplastic chemotherapy; Z79.891 Long term (current) use of opiate analgesic; Z86.74 Personal history of sudden cardiac arrest; Z86.711 Personal history of pulmonary embolism; Z79.01 Long term (current) use of anticoagulants; Z85.46 Personal history of malignant neoplasm of prostate
CPT/HCPCS: J2060; J3475

== ENCOUNTER 2023-05-26 19:07 | Emergency (ER) | payer MEDICARE ==
[~2023-05-26] VITALS: Ht 165.1 cm; Wt 86.0 kg
[2023-05-26] VITALS (15 sets, daily range): BP systolic 112–188; BP diastolic 59–103
[2023-05-26 20:29] LABS: BASO% 0.7 % (0-3); EOS% 1.6 % (0-8); HEMATOCRIT 40.6 % (39.0-50.0); IMMATURE GRANULOCYTES 1.6 % (0.0-5.0); LYMPH% 17.1 % (15-41); MEAN CELL VOLUME 84.8 fL CALC (80.0-100.0); MEAN CORPUSCULAR HGB 29.2 pG CALC (26.0-32.0); MEAN CORPUSCULAR HGB CONC 34.5 g/dL CAL (32.0-36.0); MONO% 8.7 % (2-13); NEUT# 6.68 thou/uL (1.82-7.42); NEUT% 70.3 % (42-76); RED BLOOD COUNT 4.79 mill/uL (4.70-6.10); RED CELL DISTRI WIDTH 13.7 % (11.5-15.5)
[2023-05-26 21:13] LABS: AMYLASE 100 u/l (30-110); LIPASE 193 u/l (23-300)
[2023-05-26 21:15] LABS: ALBUMIN 4.2 g/dL (3.2-5.0); ALKALINE PHOSPHATASE 154 u/l (38-126); ANION GAP 13 (6-22 (CALC)); BILIRUBIN, TOTAL 0.4 mg/dL (0.2-1.3); BUN 17 mg/dL (9-20); BUN/CREATININE RATIO 32 (12-20 (CALC)); CARBON DIOXIDE 24 mmol/l (22-30); CHLORIDE 103 mmol/l (95-108); CREATININE 0.5 mg/dL (0.7-1.3); GFR FOR AFR.AMER. > 60 ML/MIN (>=60 (CALC)); GFR OTHER RACES > 60 ML/MIN (>=60 (CALC)); POTASSIUM 4.3 mmol/l (3.5-5.1); SGOT/AST 30 u/l (17-59); SODIUM 135 mmol/l (137-146); TOTAL PROTEIN 8.1 g/dL (6.3-8.2)
[2023-05-26 22:40] LABS: URINE BILIRUBIN - DIPSTICK Negative (NEGATIVE); URINE BLOOD DIPSTICK Negative (NEGATIVE); URINE GLUCOSE - DIPSTICK 500 mg/dL (NEGATIVE); URINE KETONE Negative (NEGATIVE); URINE LEUK ESTERASE Negative (NEGATIVE); URINE NITRITE - DIPSTICK Negative (Negative); URINE PH 6.5 (4.5-8.0); URINE PROTEIN - DIPSTICK Negative (NEG-TRACE); URINE UROBILINOGEN - DIPSTICK 0.2 E.U./dL (0.2)
[2023-05-26 22:41] LABS: URINE COLOR Yellow
[2023-05-26] MEDS ORDERED: LORTAB 1010 MG PO (23:20)
[2023-05-26] MEDS ORDERED: CEPHALEXIN500 MG PO (23:20)
[2023-05-27] VITALS: BP 129/74
[2023-05-27] MEDS ORDERED: AMOXICILLIN500 M2 (23:00)
== END 2023-05-27 00:05 | disposition home or self-care (01) ==
LOC: ED 19:07
PROVIDERS: Emergency Medicine
DX: R50.9 Fever, unspecified (principal); R11.2 Nausea with vomiting, unspecified; R10.9 Unspecified abdominal pain; G40.909 Epilepsy, unspecified, not intractable, without status epilepticus; I10 Essential (primary) hypertension; E11.9 Type 2 diabetes mellitus without complications; C85.90 Non-Hodgkin lymphoma, unspecified, unspecified site; I25.2 Old myocardial infarction; Z95.828 Presence of other vascular implants and grafts; Z21 Asymptomatic human immunodeficiency virus [HIV] infection status; Z79.899 Other long term (current) drug therapy; Z85.048 Personal history of other malignant neoplasm of rectum, rectosigmoid junction, and anus; Z85.841 Personal history of malignant neoplasm of brain; Z92.21 Personal history of antineoplastic chemotherapy; Z79.84 Long term (current) use of oral hypoglycemic drugs; Z79.4 Long term (current) use of insulin; Z20.822 Contact with and (suspected) exposure to COVID-19
CPT/HCPCS: J2060; Q9967

== ENCOUNTER 2023-05-27 16:34 | Observation (INO) | payer MEDICARE ==
[~2023-05-27] VITALS: Ht 165.1 cm; Wt 91.6 kg
[~2023-05-27 16:34] MED LIST changes: +CEPHALEXIN500 MG PO
[2023-05-27 17:17] LABS: BASO% 0.4 % (0-3); EOS% 1.2 % (0-8); HEMATOCRIT 35.7 % (39.0-50.0); HEMOGLOBIN 12.2 g/dl (14.0-18.0); LYMPH% 10.3 % (15-41); MEAN CORPUSCULAR HGB CONC 34.2 g/dL CAL (32.0-36.0); MONO% 9.8 % (2-13); NEUT# 6.94 thou/uL (1.82-7.42); NEUT% 76.3 % (42-76); RED BLOOD COUNT 4.2 mill/uL (4.70-6.10); RED CELL DISTRI WIDTH 13.4 % (11.5-15.5)
[2023-05-27 17:33] LABS: ALBUMIN 3.9 g/dL (3.2-5.0); ALKALINE PHOSPHATASE 164 u/l (38-126); ANION GAP 13 (6-22 (CALC)); BILIRUBIN, TOTAL 0.3 mg/dL (0.2-1.3); BUN 26 mg/dL (9-20); BUN/CREATININE RATIO 43 (12-20 (CALC)); CARBON DIOXIDE 23 mmol/l (22-30); CHLORIDE 102 mmol/l (95-108); CREATININE 0.6 mg/dL (0.7-1.3); GFR FOR AFR.AMER. > 60 ML/MIN (>=60 (CALC)); GFR OTHER RACES > 60 ML/MIN (>=60 (CALC)); POTASSIUM 4.2 mmol/l (3.5-5.1); SGOT/AST 28 u/l (17-59); SODIUM 134 mmol/l (137-146); TOTAL PROTEIN 7.4 g/dL (6.3-8.2)
[2023-05-27 20:04] VITALS: BP 149/82
[2023-05-27] MEDS ORDERED: AMOXICILLIN500 M2 (23:00)
[2023-05-28 00:03] VITALS: BP 109/74
[2023-05-28 04:10] VITALS: BP 100/54
[2023-05-28 04:30] VITALS: BP 100/54
[2023-05-28 06:25] LABS: HEMATOCRIT 34.8 % (39.0-50.0); HEMOGLOBIN 11.8 g/dl (14.0-18.0); MEAN CELL VOLUME 85.3 fL CALC (80.0-100.0); MEAN CORPUSCULAR HGB 28.9 pG CALC (26.0-32.0); MEAN CORPUSCULAR HGB CONC 33.9 g/dL CAL (32.0-36.0); RED BLOOD COUNT 4.08 mill/uL (4.70-6.10); RED CELL DISTRI WIDTH 13.6 % (11.5-15.5)
[2023-05-28 06:32] LABS: ALBUMIN 3.9 g/dL (3.2-5.0); ALKALINE PHOSPHATASE 141 u/l (38-126); ANION GAP 13 (6-22 (CALC)); BILIRUBIN, TOTAL 0.3 mg/dL (0.2-1.3); BUN 30 mg/dL (9-20); BUN/CREATININE RATIO 39 (12-20 (CALC)); CHLORIDE 100 mmol/l (95-108); CREATININE 0.8 mg/dL (0.7-1.3); GFR FOR AFR.AMER. > 60 ML/MIN (>=60 (CALC)); GFR OTHER RACES > 60 ML/MIN (>=60 (CALC)); POTASSIUM 4.8 mmol/l (3.5-5.1); SGOT/AST 26 u/l (17-59); SODIUM 136 mmol/l (137-146); TOTAL PROTEIN 7.1 g/dL (6.3-8.2)
[2023-05-28 06:34] LABS: CARBON DIOXIDE 28 mmol/l (22-30)
[2023-05-28 07:22] VITALS: BP 110/73
[2023-05-28 10:46] VITALS: BP 107/56
== END 2023-05-28 13:22 | disposition home or self-care (01) ==
LOC: ED 16:34 → ED-I 17:53 → ED 18:18 → MS2 18:19
PROVIDERS: Family Medicine; ADMIT Student in an Organized Health Care Education/Training Program; ATTEND Student in an Organized Health Care Education/Training Program
DX: R07.9 Chest pain, unspecified (principal); G89.29 Other chronic pain; I10 Essential (primary) hypertension; J44.9 Chronic obstructive pulmonary disease, unspecified; C81.90 Hodgkin lymphoma, unspecified, unspecified site; I25.10 Atherosclerotic heart disease of native coronary artery without angina pectoris; E03.9 Hypothyroidism, unspecified; F41.9 Anxiety disorder, unspecified; G40.909 Epilepsy, unspecified, not intractable, without status epilepticus; I25.2 Old myocardial infarction; F17.200 Nicotine dependence, unspecified, uncomplicated; Z21 Asymptomatic human immunodeficiency virus [HIV] infection status; Z79.84 Long term (current) use of oral hypoglycemic drugs; Z79.4 Long term (current) use of insulin; Z95.828 Presence of other vascular implants and grafts; Z99.81 Dependence on supplemental oxygen; Z86.73 Personal history of transient ischemic attack (TIA), and cerebral infarction without residual deficits; Z86.74 Personal history of sudden cardiac arrest; Z85.46 Personal history of malignant neoplasm of prostate; Z79.891 Long term (current) use of opiate analgesic; Z20.822 Contact with and (suspected) exposure to COVID-19

== ENCOUNTER 2023-07-19 01:53 | Emergency (ER) | payer MEDICARE ==
[~2023-07-19] VITALS: Ht 165.1 cm; Wt 91.0 kg
[2023-07-19] VITALS (8 sets, daily range): BP systolic 129–162; BP diastolic 67–111
[~2023-07-19 01:53] MED LIST changes: +AMOXICILLIN500 M2; +DICYCLOMINE HCL20 MG PO; +PROMETHAZINE HY25 M1 PO; +PROTONIX40 M2 PO
[2023-07-19 03:10] LABS: BASO% 0.4 % (0-3); EOS% 0.6 % (0-8); HEMATOCRIT 41.5 % (39.0-50.0); HEMOGLOBIN 13.8 g/dl (14.0-18.0); IMMATURE GRANULOCYTES 1.3 % (0.0-5.0); LYMPH% 2.9 % (15-41); MEAN CELL VOLUME 86.1 fL CALC (80.0-100.0); MEAN CORPUSCULAR HGB 28.6 pG CALC (26.0-32.0); MEAN CORPUSCULAR HGB CONC 33.3 g/dL CAL (32.0-36.0); MONO% 2.6 % (2-13); NEUT# 6.4 thou/uL (1.82-7.42); NEUT% 92.2 % (42-76); RED BLOOD COUNT 4.82 mill/uL (4.70-6.10); RED CELL DISTRI WIDTH 13.9 % (11.5-15.5)
[2023-07-19 03:19] LABS: ALBUMIN 4.4 g/dL (3.2-5.0); ALKALINE PHOSPHATASE 191 u/l (38-126); ANION GAP 20 (6-22 (CALC)); BUN 16 mg/dL (9-20); BUN/CREATININE RATIO 24 (12-20 (CALC)); CARBON DIOXIDE 18 mmol/l (22-30); CHLORIDE 106 mmol/l (95-108); CREATININE 0.7 mg/dL (0.7-1.3); GFR FOR AFR.AMER. > 60 ML/MIN (>=60 (CALC)); GFR OTHER RACES > 60 ML/MIN (>=60 (CALC)); LIPASE 135 u/l (23-300); POTASSIUM 3.9 mmol/l (3.5-5.1); SGOT/AST 141 u/l (17-59); SODIUM 140 mmol/l (137-146); TOTAL PROTEIN 7.9 g/dL (6.3-8.2)
[2023-07-19 03:22] LABS: BILIRUBIN, TOTAL 0.8 mg/dL (0.2-1.3); MAGNESIUM 1.3 mg/dL (1.6-2.3)
[2023-07-19 03:26] LABS: INTERNATIONAL NORMALIZED RATIO 1.2 RATIO (0.7-1.3); PROTHROMBIN TIME 11.5 SECONDS (9.0-12.5)
[2023-07-19 03:37] LABS: CPK 7466 u/l (55-170)
[2023-07-19 03:40] LABS: D-DIMER 2.57 mg/L (0.19-0.60)
== END 2023-07-19 04:15 | disposition left against medical advice (07) ==
LOC: ED 01:53
PROVIDERS: Internal Medicine
DX: R07.9 Chest pain, unspecified (principal); F11.20 Opioid dependence, uncomplicated; J40 Bronchitis, not specified as acute or chronic; R79.89 Other specified abnormal findings of blood chemistry; I10 Essential (primary) hypertension; I25.10 Atherosclerotic heart disease of native coronary artery without angina pectoris; E11.9 Type 2 diabetes mellitus without complications; Z86.73 Personal history of transient ischemic attack (TIA), and cerebral infarction without residual deficits; Z85.841 Personal history of malignant neoplasm of brain; Z92.3 Personal history of irradiation; Z92.21 Personal history of antineoplastic chemotherapy; Z79.84 Long term (current) use of oral hypoglycemic drugs; Z79.4 Long term (current) use of insulin; Z53.29 Procedure and treatment not carried out because of patient's decision for other reasons

== ENCOUNTER 2023-09-02 12:35 | Inpatient (IN) | payer MEDICARE ==
[2023-09-02] VITALS (15 sets, daily range): BP systolic 104–138; BP diastolic 45–74
[~2023-09-02] VITALS: Ht 165.1 cm; Wt 91.0 kg
[~2023-09-02 12:35] MED LIST changes: +COMPAZINE10 MG PO
[2023-09-02 13:10] LABS: BASO% 0.6 % (0-3); EOS% 1.1 % (0-8); HEMATOCRIT 31.6 % (39.0-50.0); HEMOGLOBIN 10.3 g/dl (14.0-18.0); IMMATURE GRANULOCYTES 0.8 % (0.0-5.0); LYMPH% 10.1 % (15-41); MEAN CELL VOLUME 82.3 fL CALC (80.0-100.0); MEAN CORPUSCULAR HGB 26.8 pG CALC (26.0-32.0); MEAN CORPUSCULAR HGB CONC 32.6 g/dL CAL (32.0-36.0); MONO% 11.5 % (2-13); NEUT# 6.73 thou/uL (1.82-7.42); NEUT% 75.9 % (42-76); RED BLOOD COUNT 3.84 mill/uL (4.70-6.10); RED CELL DISTRI WIDTH 13.8 % (11.5-15.5)
[2023-09-02 13:22] LABS: ALBUMIN 3.7 g/dL (3.2-5.0); ALKALINE PHOSPHATASE 117 u/l (38-126); ANION GAP 14 (6-22 (CALC)); BILIRUBIN, TOTAL 0.6 mg/dL (0.2-1.3); BUN 5 mg/dL (9-20); BUN/CREATININE RATIO 9 (12-20 (CALC)); CARBON DIOXIDE 25 mmol/l (22-30); CHLORIDE 101 mmol/l (95-108); CREATININE 0.5 mg/dL (0.7-1.3); GFR FOR AFR.AMER. > 60 ML/MIN (>=60 (CALC)); GFR OTHER RACES > 60 ML/MIN (>=60 (CALC)); POTASSIUM 3.3 mmol/l (3.5-5.1); SGOT/AST 34 u/l (17-59); SODIUM 136 mmol/l (137-146); TOTAL PROTEIN 6.9 g/dL (6.3-8.2)
[2023-09-03] VITALS (8 sets, daily range): BP systolic 96–122; BP diastolic 60–74
[2023-09-03 06:25] LABS: BASO% 0.1 % (0-3); HEMATOCRIT 28.6 % (39.0-50.0); HEMOGLOBIN 9.3 g/dl (14.0-18.0); IMMATURE GRANULOCYTES 1.4 % (0.0-5.0); LYMPH% 7.3 % (15-41); MEAN CELL VOLUME 83.4 fL CALC (80.0-100.0); MEAN CORPUSCULAR HGB 27.1 pG CALC (26.0-32.0); MEAN CORPUSCULAR HGB CONC 32.5 g/dL CAL (32.0-36.0); MONO% 11.2 % (2-13); NEUT# 11.31 thou/uL (1.82-7.42); RED BLOOD COUNT 3.43 mill/uL (4.70-6.10)
[2023-09-03 06:33] LABS: ALBUMIN 3.6 g/dL (3.2-5.0); ALKALINE PHOSPHATASE 102 u/l (38-126); BILIRUBIN, TOTAL 0.4 mg/dL (0.2-1.3); BUN 14 mg/dL (9-20); BUN/CREATININE RATIO 24 (12-20 (CALC)); CARBON DIOXIDE 25 mmol/l (22-30); CHLORIDE 97 mmol/l (95-108); CREATININE 0.6 mg/dL (0.7-1.3); GFR FOR AFR.AMER. > 60 ML/MIN (>=60 (CALC)); GFR OTHER RACES > 60 ML/MIN (>=60 (CALC)); MAGNESIUM 1.4 mg/dL (1.6-2.3); SGOT/AST 30 u/l (17-59); SODIUM 133 mmol/l (137-146); TOTAL PROTEIN 6.3 g/dL (6.3-8.2)
[2023-09-03 06:41] LABS: ANION GAP 15 (6-22 (CALC)); POTASSIUM 4.2 mmol/l (3.5-5.1)
[2023-09-04 00:08] VITALS: BP 110/62
[2023-09-04 03:29] VITALS: BP 118/72
[2023-09-04 05:26] LABS: HEMATOCRIT 28.5 % (39.0-50.0); HEMOGLOBIN 9.1 g/dl (14.0-18.0); MEAN CELL VOLUME 84.8 fL CALC (80.0-100.0); MEAN CORPUSCULAR HGB 27.1 pG CALC (26.0-32.0); MEAN CORPUSCULAR HGB CONC 31.9 g/dL CAL (32.0-36.0); RED BLOOD COUNT 3.36 mill/uL (4.70-6.10); RED CELL DISTRI WIDTH 14.3 % (11.5-15.5)
[2023-09-04 05:41] LABS: ALBUMIN 3.7 g/dL (3.2-5.0); ALKALINE PHOSPHATASE 99 u/l (38-126); ANION GAP 17 (6-22 (CALC)); BILIRUBIN, TOTAL 0.5 mg/dL (0.2-1.3); BUN 26 mg/dL (9-20); BUN/CREATININE RATIO 33 (12-20 (CALC)); CARBON DIOXIDE 24 mmol/l (22-30); CHLORIDE 96 mmol/l (95-108); CREATININE 0.8 mg/dL (0.7-1.3); GFR FOR AFR.AMER. > 60 ML/MIN (>=60 (CALC)); GFR OTHER RACES > 60 ML/MIN (>=60 (CALC)); POTASSIUM 4.5 mmol/l (3.5-5.1); SGOT/AST 30 u/l (17-59); SODIUM 133 mmol/l (137-146); TOTAL PROTEIN 6.7 g/dL (6.3-8.2)
[2023-09-04 05:43] LABS: MAGNESIUM 2.1 mg/dL (1.6-2.3)
[2023-09-04 06:25] VITALS: BP 113/77
[2023-09-04 11:00] VITALS: BP 127/77
[2023-09-04] MEDS ORDERED: TAM75CAP PO (11:26)
[2023-09-04] MEDS ORDERED: OMNICEF300 M1 PO (11:27)
[2023-09-04] MEDS ORDERED: VIBRAMYCIN100 M2 PO (11:27)
[2023-09-05] MEDS ORDERED: VIBRAMYCIN100 M2 PO (00:21)
== END 2023-09-04 13:24 | disposition home or self-care (01) | DRG 194 ==
LOC: ED 12:35 → ED-I 14:34 → ED 14:49 → MS2 14:50
PROVIDERS: Family Medicine; ADMIT Student in an Organized Health Care Education/Training Program; ATTEND Student in an Organized Health Care Education/Training Program
DX: J11.00 Influenza due to unidentified influenza virus with unspecified type of pneumonia (principal); C34.90 Malignant neoplasm of unspecified part of unspecified bronchus or lung; C81.90 Hodgkin lymphoma, unspecified, unspecified site; F11.20 Opioid dependence, uncomplicated; E11.9 Type 2 diabetes mellitus without complications; I10 Essential (primary) hypertension; E03.9 Hypothyroidism, unspecified; I25.10 Atherosclerotic heart disease of native coronary artery without angina pectoris; I25.2 Old myocardial infarction; M54.9 Dorsalgia, unspecified; G89.29 Other chronic pain; F17.200 Nicotine dependence, unspecified, uncomplicated; Z21 Asymptomatic human immunodeficiency virus [HIV] infection status; Z92.3 Personal history of irradiation; Z92.21 Personal history of antineoplastic chemotherapy; Z86.73 Personal history of transient ischemic attack (TIA), and cerebral infarction without residual deficits; Z95.828 Presence of other vascular implants and grafts; Z79.84 Long term (current) use of oral hypoglycemic drugs; Z79.4 Long term (current) use of insulin; Z79.899 Other long term (current) drug therapy; Z85.46 Personal history of malignant neoplasm of prostate; Z20.822 Contact with and (suspected) exposure to COVID-19
CPT/HCPCS: J0131; J3475

== ENCOUNTER 2023-09-04 23:54 | Emergency (ER) | payer MEDICARE ==
[~2023-09-04] VITALS: Ht 165.1 cm; Wt 89.0 kg
[~2023-09-04 23:54] MED LIST changes: +OMNICEF300 M1 PO; +TAM75CAP PO
[2023-09-05] MEDS ORDERED: VIBRAMYCIN100 M2 PO (00:21)
[2023-09-05 00:47] VITALS: BP 144/72
[2023-09-05 00:48] VITALS: BP 144/77
== END 2023-09-05 00:50 | disposition home or self-care (01) ==
LOC: ED 23:54
DX: L03.313 Cellulitis of chest wall (principal); I10 Essential (primary) hypertension; E11.9 Type 2 diabetes mellitus without complications; I25.2 Old myocardial infarction; C85.90 Non-Hodgkin lymphoma, unspecified, unspecified site; Z21 Asymptomatic human immunodeficiency virus [HIV] infection status; Z79.899 Other long term (current) drug therapy; Z92.21 Personal history of antineoplastic chemotherapy; Z92.3 Personal history of irradiation; Z79.84 Long term (current) use of oral hypoglycemic drugs; Z79.4 Long term (current) use of insulin; Z95.828 Presence of other vascular implants and grafts